=== PATIENT | male | born 1950 | race Caucasian/White ===

== ENCOUNTER → 2016-10-30 | Outpatient (CLI) | payer OTHER ==
--- NOTE | 2016-10-30 15:02 | CT ---
EXAMINATION TYPE: CT abdomen pelvis wo con DATE OF EXAM: 10/30/2016 1:57 PM HISTORY: renal stones, hx of stones on both sides CT DLP: 940.3 mGycm. Automated Exposure Control for Dose Reduction was Utilized. TECHNIQUE: CT scan of the abdomen and pelvis is performed without oral or IV contrast. COMPARISON: Prior CT abdomen and pelvis study January 23, 2008. FINDINGS: Within the limitations of a non-contrast study, the following observations are made. LUNG BASES: There is partial visualization of defibrillator and ventricular leads in the right-sided heart and coronary sinus redemonstrated. There is small pericardial effusion slightly larger versus p rior. LIVER/GB: Cholecystectomy clips are redemonstrated. Liver has increased density versus prior exam. PANCREAS: There is mild fat replaced atrophy of the head and body of pancreas redemonstrated. SPLEEN: Splenomegaly is redemonstrated measuring 16.7 cm on long axis on coronal image 66 stable from prior study. ADRENALS: No significant abnormality is seen. KIDNEYS: There are 3-4 small calculi measuring 3 mm or smaller in size scattered throughout the right kidney on current study. I suspect 1-2 punctate calculi measuring 2 mm or smaller in size in the lef t kidney on coronal image 50 lower pole level and coronal image 66 upper to mid pole level. No hydron ephrosis or obstructing renal calculi are evident bilaterally. There is prominent left-sided pelvic p hlebolith redemonstrated on axial image 72. Degree of calcific burden is significantly improved from prior. No intraluminal calculus and bladder is present. BOWEL: There is left lower quadrant colostomy. There is parastomal hernia containing small and large bowel loops redemonstrated. No suspicious small or large bowel dilatation is present. There is been d istal partial colectomy. Atrophic rectal pouch noted. GENITAL ORGANS: No gross abnormality seen. LYMPH NODES: No greater than 1cm abdominal or pelvic lymph nodes are appreciated. OSSEOUS STRUCTURES: No significant abnormality is seen. OTHER: No significant additional abnormality is seen. IMPRESSION: 1. Some tiny nonobstructing renal calculi are redemonstrated bilaterally. No hydronephrosis or obstru cting renal calculi are seen. Marked interval improvement in calcific burden versus prior exam is not ed.
== END | disposition home or self-care (01) ==
LOC: RADCTMAIN 13:36
PROVIDERS: ATTEND Family Medicine
DX: N20.0 Calculus of kidney (principal)
CPT/HCPCS: 74176

== ENCOUNTER 2016-12-14 09:32 | Day surgery (SDC) | payer OTHER ==
[~2016-12-14 09:32] MED LIST: CLINDAMYCIN 900 MG in DEXTROSE 5% IN WATER 50 ML IVPB STA; HYDROmorphone 1 MG/ML 1 ML SYRINGE IVP PRN; LACTATED RINGERS 1,000 ML IV SCH; MIDAZOLAM 2 MG/2 ML VIAL IV PRN; SODIUM CHLORIDE 0.9% 1,000 ML IV SCH
[2016-12-14 10:49] LABS: Glucose,Whole Blood 226 mg/dL (75-99)
[2016-12-14 10:50] LABS: Anion Gap 10 mmol/L; Blood Urea Nitrogen 20 mg/dL (9-20); Calcium 10.8 mg/dL (8.4-10.2); Carbon Dioxide 26 mmol/L (22-30); Chloride 101 mmol/L (98-107); Glucose 221 mg/dL (74-99); Non-African American GFR(MDRD) >60 (>60 ml/min/1.73 sqM); Sodium 137 mmol/L (137-145)
[2016-12-14 10:58] LABS: Potassium 5.1 mmol/L (3.5-5.1)
[2016-12-14] MEDS ORDERED: INSULIN LISPRO (humaLOG) 300 UNIT/3 ML VIAL SQ ONE (11:05)
[2016-12-14] MEDS ORDERED: fentaNYL (PF) 50 MCG/ML 2 ML AMP IV ONE (11:13)
[2016-12-14] MEDS ORDERED: fentaNYL (PF) 50 MCG/ML 2 ML AMP ONE (12:35)
[2016-12-14] MEDS ORDERED: MIDAZOLAM 2 MG/2 ML VIAL ONE (12:35)
[2016-12-14] MEDS ORDERED: PROPOFOL 10 MG/ML 20 ML VIAL IV ONE (12:35)
[2016-12-14] MEDS ORDERED: diphenhydrAMINE 50 MG/ML 1 ML VIAL ONE (12:35)
[2016-12-14] MEDS ORDERED: IV FLUID CONTINUATION 1,000 ML IV ONE (13:00)
[2016-12-14] MEDS ORDERED: LIDOCAINE 2% INJ 20 MG/ML SQ ONE (13:12)
--- NOTE | 2016-12-14 13:47 | P.PCN ---
Preoperative Diagnosis: Procedure: Device interrogation with reprogramming prior to the procedure AV Node Ablation/modification. Device interrogation with reprogramming postprocedure Indication for the procedure: A. fib with RVR, difficult rate control despite AV node blocking drugs, congestive heart failure and cardiomyopathy, status post biventricular ICD, low Bi V pacing percentage Patient was brought to the EP lab in a fasting state. Written, informed consent was obtained prior to the procedure. Access was obtained, sheath placed in right femoral vein. 1. Preprocedure device interrogation and reprogramming Device interrogation with reprogramming performed. Rate responsiveness was turned off and the pacing rate was reprogrammed to a backup mode prior to ablation. Tachycardia detections turned off. Lead impedance is documented, sensing and pacing thresholds performed prior to the procedure Backup pacing, VVI 40 bpm 3. AV node ablation A Mapping/Ablation catheter was placed and right-sided AV node radiofrequency ablation/modification was performed. Complete heart block was achieved with occasional junctional escape rhythm above 40 bpm 4. Device programming postprocedure Post ablation, device reprogramming was performed. Base Pacing rate was programmed to 90 bpm. Patient's device was reprogrammed and the interrogated. RF mode turned on Vascular sheaths were removed at the end of the procedure, hemostasis was assured, the patient was then transferred to recovery room/telemetry in stable condition. Conclusions: Successful ablation of the AV node. Plan: Pacing at 90 bpm for at least 3 weeks. Telemetry monitoring for 24-48 hours. Continue anticoagulation. Patient tolerated the procedure well without any acute complications Anesthesia: MAC, none
[2016-12-14] MEDS ORDERED: PROCHLORPERAZINE 5 MG TAB PO PRN (13:49)
[2016-12-14] MEDS: Acetaminophen-Codeine 300-30mg TAB PO PRN ×2 (15:39→19:52)
[2016-12-14 17:33] LABS: Glucose,Whole Blood 138 mg/dL (75-99)
[2016-12-14] MEDS: INSULIN LISPRO (humaLOG) 300 UNIT/3 ML VIAL SQ SCH ×2 (18:25→21:09)
[2016-12-14] MEDS: DIAZEPAM 5 MG TAB PO SCH ×2 (18:29→22:20)
[2016-12-14 20:48] LABS: Glucose,Whole Blood 179 mg/dL (75-99)
[2016-12-14] MEDS ORDERED: ZOLPIDEM 10 MG TAB PO SCH (21:00)
[2016-12-14] MEDS ORDERED: EDOXABAN TOSYLATE 60 MG TABLET PO SCH (21:00)
[2016-12-14] MEDS ORDERED: MIRTAZAPINE 45 MG TABLET PO SCH (21:00)
[2016-12-15] MEDS: Acetaminophen-Codeine 300-30mg TAB PO PRN ×2 (03:26→08:13)
[2016-12-15 04:04] VITALS: RESP 16
[2016-12-15 05:36] LABS: Basophils % (A) 0 %; CH 31.2; CHCM 33.6; Eosinophils # (A) 0.1 k/uL (0-0.7); Eosinophils % (A) 1 %; HCT 39.3 % (39.0-53.0); HDW 2.63; Luc # (Auto) 0.12; Luc % (Auto) 1; Lymphocytes # (A) 1.2 k/uL (1.0-4.8); Lymphocytes % (A) 13 %; MCH 30.8 pg (25.0-35.0); MCHC 33.1 g/dL (31.0-37.0); MCV 93.2 fL (80.0-100.0); Mean Platelet Volume 7.2; Monocytes # (A) 0.5 k/uL (0-1.0); Monocytes % (A) 5 %; Neutrophils # (A) 7.1 k/uL (1.3-7.7); Neutrophils % (A) 79 %; RBC 4.21 m/uL (4.30-5.90); RDW 13.9 % (11.5-15.5); WBC 8.9 k/uL (3.8-10.6); WBC (Perox) 9.77
[2016-12-15 06:44] LABS: Glucose,Whole Blood 159 mg/dL (75-99)
[2016-12-15] MEDS: DIAZEPAM 5 MG TAB PO SCH (08:13)
[2016-12-15 08:16] VITALS: BP 128/61; PULSE 68; TEMP 97.8
[2016-12-15] MEDS: INSULIN LISPRO (humaLOG) 300 UNIT/3 ML VIAL SQ SCH (08:17)
[2016-12-15] MEDS ORDERED: METOPROLOL SUCCINATE (ER) 100 MG TAB.ER.24H PO SCH (09:00)
[2016-12-15] MEDS ORDERED: DIGOXIN 125 MCG TAB PO SCH (09:00)
[2016-12-15] MEDS ORDERED: SPIRONOLACTONE 25 MG TAB PO SCH (09:00)
[2016-12-15] MEDS ORDERED: ALLOPURINOL 300 MG TAB PO SCH (09:00)
[2016-12-15] MEDS ORDERED: LISINOPRIL 20 MG TAB PO SCH (09:00)
[2016-12-15] MEDS ORDERED: INSULN ASP PRT/INSULIN ASPART 100 UNIT/ML 10 ML VIAL SQ SCH (12:30)
== END 2016-12-15 10:27 | disposition home or self-care (01) ==
LOC: CATHEP 09:32 → 3OBS 13:39 → CATHEP 12-15 10:27
PROVIDERS: ATTEND Internal Medicine Clinical Cardiac Electrophysiology
DX: Z45.02 Encounter for adjustment and management of automatic implantable cardiac defibrillator (principal); I48.1 Persistent atrial fibrillation; I47.2 Ventricular tachycardia; I11.0 Hypertensive heart disease with heart failure; I50.22 Chronic systolic (congestive) heart failure; I42.0 Dilated cardiomyopathy; E78.5 Hyperlipidemia, unspecified; E11.9 Type 2 diabetes mellitus without complications; I25.10 Atherosclerotic heart disease of native coronary artery without angina pectoris; K51.90 Ulcerative colitis, unspecified, without complications; Z93.2 Ileostomy status; Z86.718 Personal history of other venous thrombosis and embolism; Z82.49 Family history of ischemic heart disease and other diseases of the circulatory system; Z79.4 Long term (current) use of insulin; Z79.891 Long term (current) use of opiate analgesic; Z79.899 Other long term (current) drug therapy; Z88.0 Allergy status to penicillin; Z88.8 Allergy status to other drugs, medicaments and biological substances; Z91.041 Radiographic dye allergy status; Z87.891 Personal history of nicotine dependence
CPT/HCPCS: 93650; 80048; 85025; C1894; C1769 ×2; C1733; C1893; S0183; J2001; J2250; J1200; J3010; J2704

== ENCOUNTER 2018-02-20 20:57 | Inpatient (IN) | payer OTHER ==
[2018-02-20] MEDS ORDERED: KETOROLAC 30 MG/ML 1 ML VIAL IVP STA (21:20)
[2018-02-20] MEDS ORDERED: ONDANSETRON 4 MG/2 ML VIAL IVP STA (21:20)
[2018-02-20] MEDS ORDERED: SODIUM CHLORIDE 0.9% 1,000 ML IV STA ×2 (21:20)
[2018-02-20] MEDS ORDERED: FAMOTIDINE 20 MG/2 ML VIAL IV STA (21:23)
[2018-02-20] MEDS ORDERED: methylPREDNISolone SOD SUCCI 125 MG/2 ML VIAL IV STA (21:23)
[2018-02-20] MEDS ORDERED: diphenhydrAMINE 50 MG/ML 1 ML VIAL IVP STA (21:23)
--- NOTE | 2018-02-20 21:23 | ED ---
Nausea/Vomiting/Diarrhea HPI - General Source: patient, RN notes reviewed, old records reviewed Mode of arrival: EMS Limitations: no limitations <Cordelia Starks - Last Filed: 02/21/18 05:43> <Oleg Munoz - Last Filed: 02/21/18 09:03> - General Chief complaint: Nausea/Vomiting/Diarrhea Stated complaint: Diarrhea Time Seen by Provider: 02/20/18 21:08 - History of Present Illness Initial comments: Patient 67-year-old male presents emergency department today with severe diarrhea for the past few days. Patient reports that he has a ostomy bag. has been emptying it every few hours with clear liquid stool. Patient reports he does have some left-sided abdominal pain. Extensive surgical history including bowel resection and ileostomy replacement. Gallbladders removed as well. Patient denies any fever or chills. He denies any chest pressure S breath. He is also wearing a life past as his defibrillator was recently turned off but he does have a pacemaker. Patient states he feeling very fatigued. Denies any vomiting episodes. Stool cultures obtained. ( Cordelia Starks) - Related Data Home Medications Medication Instructions Recorded Confirmed Acetaminophen with Codeine 1 - 2 tab PO Q4-6H PRN 08/06/16 11/15/17 [Tylenol w/codeine #4] Allopurinol [Zyloprim] 300 mg PO DAILY 08/06/16 11/15/17 Diazepam [Valium] 5 - 10 mg PO DAILY 08/06/16 11/15/17 Digoxin [Lanoxin] 125 mcg PO DAILY 08/06/16 11/15/17 Enalapril [Vasotec] 5 mg PO BID 08/06/16 11/15/17 Insuln Asp Prt/Insulin Aspart 52 unit SQ AC-LUNCH 08/06/16 11/15/17 [NovoLOG MIX 70-30 VIAL] Mirtazapine [Remeron] 45 mg PO DAILY 08/06/16 11/15/17 Prochlorperazine [Compazine] 5 - 10 mg PO Q8HR PRN 08/06/16 11/08/17 Zolpidem [Ambien] 10 mg PO HS 08/06/16 11/15/17 Edoxaban Tosylate [Savaysa] 60 mg PO HS 11/27/16 11/15/17 Multivitamin [Multivitamins Adult 1 tab PO DAILY 11/27/16 11/15/17 Gummies] [place]-3 Fatty Acids/Fish Oil [Fish 1 cap PO DAILY 11/27/16 11/15/17 Oil 1,000 mg Softgel] Spironolactone [Aldactone] 25 mg PO DAILY 11/27/16 11/15/17 Calcium Carbonate/Vitamin D3 2 tab PO BID 12/14/16 11/15/17 [Calcium 600-Vit D3 400 Caplet] Insulin Aspart [NovoLOG Flexpen] See Protocol SQ ACHS 12/14/16 11/08/17 Metoprolol Succinate (ER) [Toprol 50 mg PO BID 12/15/16 11/15/17 XL] Allergies Allergy/AdvReac Type Severity Reaction Status Date / Time Iodine and Iodide Containing AdvReac Swelling Verified 12/14/16 14:39 Produc of Tongue Penicillins AdvReac Rash/Hives Verified 12/14/16 14:39 Review of Systems ROS Other: All systems not noted in ROS Statement are negative. <Cordelia Starks - Last Filed: 02/21/18 05:43> ROS Other: All systems not noted in ROS Statement are negative. <Oleg Munoz - Last Filed: 02/21/18 09:03> ROS Statement: Those systems with pertinent positive or pertinent negative responses have been documented in the HPI. 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 History of Any Multi-Drug Resistant Organisms: None Reported Past Surgical History: AICD, Appendectomy, Back Surgery, Cholecystectomy, Heart Catheterization, Hernia Repair, Tonsillectomy Additional Past Surgical History / Comment(s): Ileostomy and a revision, BiV- ICD implanted in 2006 with gen change 2012, cardiac cath-normal, EGD/ colonoscopies, cystoscopy, lithotripsies, bilateral ureteral stents, cervical fusion with plate, R inguinal hernia repair. Additional Past Anesthesia/Blood Transfusion Reaction / Comment(s): Limited ROM with neck. Type of Cardiac Device: AICD Device Placement Date:: 2006 Past Psychological History: Anxiety, Depression, Panic Disorder Smoking Status: Former smoker - Past Family History Father Additional Family Medical History / Comment(s): Father of alcoholism. Mother Family Medical History: Hypertension Additional Family Medical History / Comment(s): Diverticular disease. Mother in her 80's. <Cordelia Starks - Last Filed: 02/21/18 05:43> General Exam Limitations: no limitations General appearance: alert, in no apparent distress Head exam: Present: atraumatic, normocephalic, normal inspection Eye exam: Present: normal appearance, PERRL, EOMI. Absent: scleral icterus, conjunctival injection, periorbital swelling ENT exam: Present: normal exam, mucous membranes moist Neck exam: Present: normal inspection. Absent: tenderness, meningismus, lymphadenopathy Respiratory exam: Present: normal lung sounds bilaterally, other (She was wearing a life vest.). Absent: respiratory distress, wheezes, rales, rhonchi, stridor Cardiovascular Exam: Present: regular rate, normal rhythm, normal heart sounds. Absent: systolic murmur, diastolic murmur, rubs, gallop, clicks GI/Abdominal exam: Present: soft, tenderness (Left lower quadrant tenderness.), normal bowel sounds, other (Multiple scars. Evidence of the left sided ileostomy site. Clear liquid stool.). Absent: distended, guarding, rebound, rigid Extremities exam: Present: normal inspection, full ROM, normal capillary refill. Absent: tenderness, pedal edema, joint swelling, calf tenderness Back exam: Present: normal inspection Neurological exam: Present: alert, oriented X3, CN II-XII intact Psychiatric exam: Present: normal affect, normal mood Skin exam: Present: warm, dry, intact, normal color. Absent: rash <Cordelia Starks - Last Filed: 02/21/18 05:43> <Oleg Munoz - Last Filed: 02/21/18 09:03> - General Exam Comments Initial Comments: Is a 67-year-old male. Appears to be in mild discomfort. (Cordelia Starks) Vital Signs 02/20/18 02/20/18 02/20/18 21:05 22:01 22:38 Temperature 99.4 F Pulse Rate 70 Pulse Rate [ Pulse Oximetery ] Respiratory 16 16 Rate Blood Pressure 107/54 93/54 94/50 Blood Pressure [Left Arm] O2 Sat by Pulse 93 L Oximetry 02/20/18 02/20/18 02/20/18 22:47 22:51 23:00 Temperature Pulse Rate 70 78 Pulse Rate [ Pulse Oximetery ] Respiratory Rate Blood Pressure 110/60 Blood Pressure [Left Arm] O2 Sat by Pulse 97 Oximetry 02/20/18 02/21/18 02/21/18 23:23 00:00 00:47 Temperature 98.7 F 97.0 F L Pulse Rate 71 Pulse Rate [ 70 Pulse Oximetery ] Respiratory 16 19 Rate Blood Pressure 100/54 107/59 Blood Pressure 101/46 [Left Arm] O2 Sat by Pulse 97 98 96 Oximetry 02/21/18 01:52 Temperature Pulse Rate 69 Pulse Rate [ Pulse Oximetery ] Respiratory 20 Rate Blood Pressure 104/56 Blood Pressure [Left Arm] O2 Sat by Pulse 97 Oximetry Medical Decision Making - Lab Data Result diagrams: 02/20/18 21:13 02/20/18 21:13 - Radiology Data Radiology results: report reviewed <Cordelia Starks - Last Filed: 02/21/18 05:43> - Lab Data Result diagrams: 02/20/18 21:13 02/21/18 06:30 <Oleg Munoz - Last Filed: 02/21/18 09:03> - Medical Decision Making 67-year-old male presents with severe diarrhea from his ostomy site for the past few days. Trying to stay hydrated. No vomiting. Patient has multiple liquid stool. Tenderness or left lower quadrant. Labwork obtained. Patient is hyperkalemic at 6.6. Significant renal compromise with BUN of 2.[address] abdomen and pelvis without contrast was completed. CT and pelvis is evidence of enteritis and inflammation on the left lower quadrant. White blood cell count is within normal limits. Patient does have significant BUN/creatinine. [place] the Patient for hyperkalemia, a canine, D and diarrhea. Patient was started hyperkalemic protocol with Kayexalate, albuterol, bicarb and calcium chloride. He is also given insulin bolus. A did consult the sorter upholstery parts. Given rehydration. Stool cultures pending. (Cordelia Starks) I saw this patient in conjunction with the physician religious assistant. I performed independent history and physical exam. Agree with case management. (Oleg Munoz) - Lab Data Lab Results 02/20/18 02/20/18 02/20/18 Range/Units 21:13 21:13 21:13 WBC 9.9 (3.8-10.6) k/uL RBC 4.39 (4.30-5.90) m/uL Hgb 13.4 (13.0-17.5) gm/dL Hct 41.4 (39.0-53.0) % MCV 94.2 (80.0-100.0) fL MCH 30.5 (25.0-35.0) pg MCHC 32.4 (31.0-37.0) g/dL RDW 14.5 (11.5-15.5) % Plt Count 187 (150-450) k/uL Neutrophils % 79 % Lymphocytes % 12 % Monocytes % 7 % Eosinophils % 1 % Basophils % 0 % Neutrophils # 7.8 H (1.3-7.7) k/uL Lymphocytes # 1.2 (1.0-4.8) k/uL Monocytes # 0.7 (0-1.0) k/uL Eosinophils # 0.1 (0-0.7) k/uL Basophils # 0.0 (0-0.2) k/uL PT 11.8 (9.0-12.0) sec INR 1.2 H (<1.2) APTT 23.6 (22.0-30.0) sec Sodium 130 L (137-145) mmol/L Potassium 6.6 H* (3.5-5.1) mmol/L Chloride 95 L (98-107) mmol/L Carbon Dioxide 22 (22-30) mmol/L Anion Gap 13 mmol/L BUN 61 H (9-20) mg/dL Creatinine 2.40 H (0.66-1.25) mg/dL Est GFR (CKD-EPI)AfAm 32 (>60 ml/min/1.73 sqM) Est GFR (CKD-EPI)NonAf 27 (>60 ml/min/1.73 sqM) Glucose 219 H (74-99) mg/dL Calcium 10.6 H (8.4-10.2) mg/dL Total Bilirubin 0.6 (0.2-1.3) mg/dL AST 90 H (17-59) U/L ALT 67 (21-72) U/L Alkaline Phosphatase 63 (38-126) U/L Troponin I (0.000-0.034) ng/mL Total Protein 7.2 (6.3-8.2) g/dL Albumin 4.3 (3.5-5.0) g/dL Amylase 104 (30-110) U/L Lipase 227 (23-300) U/L Stool Occult Blood (Negative) C. difficile (EIA) Intrp (Negative) 02/20/18 02/20/18 02/20/18 Range/Units 21:13 22:59 22:59 WBC (3.8-10.6) k/uL RBC (4.30-5.90) m/uL Hgb (13.0-17.5) gm/dL Hct (39.0-53.0) % MCV (80.0-100.0) fL MCH (25.0-35.0) pg MCHC (31.0-37.0) g/dL RDW (11.5-15.5) % Plt Count (150-450) k/uL Neutrophils % % Lymphocytes % % Monocytes % % Eosinophils % % Basophils % % Neutrophils # (1.3-7.7) k/uL Lymphocytes # (1.0-4.8) k/uL Monocytes # (0-1.0) k/uL Eosinophils # (0-0.7) k/uL Basophils # (0-0.2) k/uL PT (9.0-12.0) sec INR (<1.2) APTT (22.0-30.0) sec Sodium (137-145) mmol/L Potassium (3.5-5.1) mmol/L Chloride (98-107) mmol/L Carbon Dioxide (22-30) mmol/L Anion Gap mmol/L BUN (9-20) mg/dL Creatinine (0.66-1.25) mg/dL Est GFR (CKD-EPI)AfAm (>60 ml/min/1.73 sqM) Est GFR (CKD-EPI)NonAf (>60 ml/min/1.73 sqM) Glucose (74-99) mg/dL Calcium (8.4-10.2) mg/dL Total Bilirubin (0.2-1.3) mg/dL AST (17-59) U/L ALT (21-72) U/L Alkaline Phosphatase (38-126) U/L Troponin I <0.012 (0.000-0.034) ng/mL Total Protein (6.3-8.2) g/dL Albumin (3.5-5.0) g/dL Amylase (30-110) U/L Lipase (23-300) U/L Stool Occult Blood Negative (Negative) C. difficile (EIA) Intrp Negative (Negative) - Radiology Data EKG shows ventricular placed rhythm abnormal EKG. Ventricular rate of 70 bpm. No rales and affect. Frustration 164. QT QTc is 442/467 ms. No evidence of ST elevation or T-wave inversion. Tiny right renal comply. Small bladder colliculi. Large left-sided periosteal hernia. Small bowel fluid levels consistent with mild ileus. No evidence for bowel obstruction. Bladder colliculi. New compared old exam. Ileus pattern is new compared on exam. (Cordelia Starks) Disposition Is patient prescribed a controlled substance at d/c from ED?: No When asked, does pt state using other controlled substances?: No If prescribed controlled substance>3 days was MAPS reviewed?: No If opioid is for acute pain is fill amount 7 days or less?: No If Rx opioid, was Start Talking consent form obtained?: No Time of Disposition: 00:33 <Cordelia Starks - Last Filed: 02/21/18 05:43> <Oleg Munoz - Last Filed: 02/21/18 09:03> Clinical Impression: Diarrhea, MIGUEL ÁNGEL (acute kidney injury), Hyperkalemia Disposition: ADMITTED IP TO THIS HOSP Condition: Stable
[2018-02-20] MEDS: MORPHINE SULFATE 4 MG/ML SYRINGE IV STA (21:48)
[2018-02-20 22:00] LABS: Basophils % (A) 0 %; Eosinophils # (A) 0.1 k/uL (0-0.7); Eosinophils % (A) 1 %; HCT 41.4 % (39.0-53.0); HGB 13.4 gm/dL (13.0-17.5); Lymphocytes # (A) 1.2 k/uL (1.0-4.8); Lymphocytes % (A) 12 %; MCH 30.5 pg (25.0-35.0); MCHC 32.4 g/dL (31.0-37.0); MCV 94.2 fL (80.0-100.0); Mean Platelet Volume 8.1; Monocytes # (A) 0.7 k/uL (0-1.0); Monocytes % (A) 7 %; Neutrophils # (A) 7.8 k/uL (1.3-7.7); Neutrophils % (A) 79 %; Platelet Count 187 k/uL (150-450); RBC 4.39 m/uL (4.30-5.90); RDW 14.5 % (11.5-15.5); WBC 9.9 k/uL (3.8-10.6)
[2018-02-20 22:04] LABS: Albumin 4.3 g/dL (3.5-5.0); Calcium 10.6 mg/dL (8.4-10.2); Total Bilirubin 0.6 mg/dL (0.2-1.3); Total Protein 7.2 g/dL (6.3-8.2)
[2018-02-20 22:14] LABS: INR 1.2 (<1.2); Partial Thromboplastin Time 23.6 sec (22.0-30.0); Prothrombin Time 11.8 sec (9.0-12.0)
[2018-02-20 22:20] LABS: Potassium 6.6 mmol/L (3.5-5.1)
[2018-02-20] MEDS ORDERED: CALCIUM CHLORIDE IV ONE (22:21)
[2018-02-20] MEDS ORDERED: INSULIN REGULAR 100 UNIT/ML VIAL IV ONE (22:21)
[2018-02-20] MEDS ORDERED: ALBUTEROL NEB (CONC) 2.5 MG/0.5 ML INHALATION ONE (22:21)
[2018-02-20] MEDS ORDERED: DEXTROSE 50%-WATER 50 ML SYRINGE IVP ONE (22:21)
[2018-02-20] MEDS ORDERED: SODIUM CHLORIDE 0.9% IV ONE (22:21)
[2018-02-20] MEDS ORDERED: SODIUM BICARB 8.4% 50 ML SYR (1 MEQ/ML) IV ONE (22:21)
[2018-02-20] MEDS ORDERED: SODIUM POLYSTYRENE SULFONATE 15 GM/60 ML BOTTLE PO ONE (22:21)
--- NOTE | 2018-02-21 00:26 | CT ---
EXAMINATION TYPE: CT abdomen pelvis wo con DATE OF EXAM: 02/20/2018 COMPARISON: 10/30/2016 HISTORY: Diarrhea CT DLP: 1153.30 mGycm Automated exposure control for dose reduction was used. TECHNIQUE: Helical acquisition of images was performed from the lung bases through the pelvis. FINDINGS: There is mild subsegmental atelectasis at the left lung base. There is cardiomegaly with small perica rdial effusion. Liver shows no focal defect. There are clips from cholecystectomy. Bile ducts are not dilated. Spleen appears normal. There is no pancreatic mass. There is no adrenal mass. Kidneys show no hydronephrosis. There are tiny 1 mm calculi in the right ki dney. There is no retroperitoneal adenopathy. There is no ascites. There are small calcifications in the dependent urinary bladder. There is no evidence of a bowel obstruction. There are some small chelsea l fluid levels. Small bowel measures up to 2.8 cm. There is a left-sided ventral parastomal hernia th at contains multiple loops of bowel. There is an ostomy over the left mid abdomen. There is no eviden ce of a mechanical bowel obstruction. There is a rectal stump. I see no bony destructive process. IMPRESSION: TINY RIGHT RENAL CALCULI. SMALL BLADDER CALCULI. LARGE LEFT SIDE PERISTOMAL HERNIA. SMALL BOWEL FLUID LEVELS CONSISTENT WITH MILD ILEUS. I DO NOT SEE EVIDENCE FOR MECHANICAL BOWEL OBSTRUCTION. BLADDER C ALCULI APPEAR NEW COMPARED TO OLD EXAM. ILEUS PATTERN IS NEW COMPARED TO OLD EXAM.
[2018-02-21] MEDS ORDERED: Acetaminophen-Codeine 300-30mg TAB PO PRN (00:35)
[2018-02-21] MEDS ORDERED: NALOXONE 0.4 MG/ML 1 ML VIAL IV PRN (00:35)
[2018-02-21] MEDS ORDERED: MORPHINE SULFATE 4 MG/ML SYRINGE IV PRN (00:35)
[2018-02-21] MEDS ORDERED: ACETAMINOPHEN TAB 325 MG TAB PO PRN (00:35)
[2018-02-21 02:40] VITALS: BMI 35.5
[2018-02-21] MEDS: MORPHINE SULFATE 4 MG/ML SYRINGE IV STA (02:55)
[2018-02-21] MEDS: SODIUM CHLORIDE 0.9% 1,000 ML IV SCH ×3 (02:55→20:25)
[2018-02-21 06:08] LABS: Glucose,Whole Blood 419 mg/dL (75-99)
[2018-02-21 06:48] LABS: Appearance,Urine Cloudy (Clear); Bacteria,Urine Rare /hpf; Bilirubin,Urine Negative (Negative); Blood,Urine Negative (Negative); Color,Urine Yellow; Glucose,Urine (UA) 3+ (Negative); Hyaline Casts,Urine 34 /lpf (0-2); Ketones,Urine Trace (Negative); Leukocyte Esterase,Urine Trace (Negative); Mucus,Urine Rare /hpf; Nitrite,Urine Negative (Negative); Protein,Urine Trace (Negative); RBC,Urine <1 /hpf (0-5); Specific Gravity,Urine 1.015 (1.001-1.035); Squamous Epithelial Cell,Urine <1 /hpf (0-4); Urobilinogen,Urine <2.0 mg/dL (<2.0); WBC,Urine 6 /hpf (0-5)
[2018-02-21 07:58] LABS: Calcium 9.6 mg/dL (8.4-10.2)
[2018-02-21 08:05] LABS: Potassium 6.8 mmol/L (3.5-5.1)
[2018-02-21] MEDS ORDERED: SODIUM BICARB 8.4% 50 ML SYR (1 MEQ/ML) IV ONE ×2 (09:04→15:13)
--- NOTE | 2018-02-21 09:05 | P.NPCON ---
History of Present Illness - Reason for Consult acute renal failure, hyperkalemia - History of Present Illness Reason for consultation: Acute kidney injury and hyperkalemia History of present illness: Patient is a 67-year-old male seen in renal consultation for acute kidney injury and hyperkalemia. Patient denies any history of kidney disease. His creatinine in December 2016 was near 1. It was elevated at 2.4 this admission and is up to 3.15 today. Potassium levels also elevated at 6.6 and a 6.8 this morning. Patient has history of ulcerative colitis and underwent total colectomy and has an ileostomy. Patient states he's been having intermittent loose stool in his ostomy bag over the last few weeks. However yesterday he had basically continuous output from his ostomy. Oral intake has been poor. [place] nauseous but denies vomiting. States he didn't urinate much at all yesterday but did urinate this morning. Denies hematuria or dysuria. Denies regular use of NSAIDs. Denies chest pain or shortness of breath. No edema. The hyperkalemia was medically treated. It is also noted that he received Toradol in the ER. He is receiving IV fluids. Blood pressures have been on the lower side. He does admit to taking Aldactone and I also see an SRIDEVI inhibitor and his home medications. The output from ostomy has slowed down. Vital signs are stable. General: The patient appeared well nourished and normally developed. HEENT: Head exam is unremarkable. Neck is without jugular venous distension. LUNGS: Lungs are clear to auscultation and percussion. Breath sounds decreased. HEART: Rate and Rhythm are regular. First and second heart sounds normal. No murmurs, rubs or gallops. ABDOMEN: Abdominal exam reveals normal bowel sounds. Non-tender and non- distended. No evidence of peritonitis. EXTREMITITES: No clubbing, cyanosis, or edema. 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 History of Any Multi-Drug Resistant Organisms: None Reported Past Surgical History: AICD, Appendectomy, Back Surgery, Cholecystectomy, Heart Catheterization, Hernia Repair, Tonsillectomy Additional Past Surgical History / Comment(s): Ileostomy and a revision, BiV- ICD implanted in 2006 with gen change 2011, cardiac cath-normal, EGD/ colonoscopies, cystoscopy, lithotripsies, bilateral ureteral stents, cervical fusion with plate, R inguinal hernia repair. Past Anesthesia/Blood Transfusion Reactions: No Reported Reaction Additional Past Anesthesia/Blood Transfusion Reaction / Comment(s): Limited ROM with neck. Type of Cardiac Device: AICD Device Placement Date:: 2006 Past Psychological History: Anxiety, Depression, Panic Disorder Smoking Status: Former smoker - Past Family History Father Additional Family Medical History / Comment(s): Father of alcoholism. Mother Family Medical History: Hypertension Additional Family Medical History / Comment(s): Diverticular disease. Mother in her 80's. Medications and Allergies Home Medications Medication Instructions Recorded Confirmed Type Acetaminophen with Codeine 1 - 2 tab PO Q4-6H PRN 08/06/16 11/15/17 History [Tylenol w/codeine #4] Allopurinol [Zyloprim] 300 mg PO DAILY 08/06/16 11/15/17 History Diazepam [Valium] 5 - 10 mg PO DAILY 08/06/16 11/15/17 History Digoxin [Lanoxin] 125 mcg PO DAILY 08/06/16 11/15/17 History Enalapril [Vasotec] 5 mg PO BID 08/06/16 11/15/17 History Insuln Asp Prt/Insulin Aspart 52 unit SQ AC-LUNCH 08/06/16 11/15/17 History [NovoLOG MIX 70-30 VIAL] Mirtazapine [Remeron] 45 mg PO DAILY 08/06/16 11/15/17 History Prochlorperazine [Compazine] 5 - 10 mg PO Q8HR PRN 08/06/16 11/08/17 History Zolpidem [Ambien] 10 mg PO HS 08/06/16 11/15/17 History Edoxaban Tosylate [Savaysa] 60 mg PO HS 11/27/16 11/15/17 History Multivitamin [Multivitamins Adult 1 tab PO DAILY 11/27/16 11/15/17 History Gummies] [place]-3 Fatty Acids/Fish Oil [Fish 1 cap PO DAILY 11/27/16 11/15/17 History Oil 1,000 mg Softgel] Spironolactone [Aldactone] 25 mg PO DAILY 11/27/16 11/15/17 History Calcium Carbonate/Vitamin D3 2 tab PO BID 12/14/16 11/15/17 History [Calcium 600-Vit D3 400 Caplet] Insulin Aspart [NovoLOG Flexpen] See Protocol SQ ACHS 12/14/16 11/08/17 History Metoprolol Succinate (ER) [Toprol 50 mg PO BID 12/15/16 11/15/17 History XL] Allergies Allergy/AdvReac Type Severity Reaction Status Date / Time Iodine and Iodide Containing AdvReac Swelling Verified 12/14/16 14:39 Produc of Tongue Penicillins AdvReac Rash/Hives Verified 12/14/16 14:39 Physical Exam Vitals: Vital Signs Temp Pulse Pulse Resp BP BP Pulse Ox 02/21/18 04:00 97.2 F L 69 18 86/53 96 02/21/18 03:01 70 20 02/21/18 01:52 69 20 104/56 97 02/21/18 00:47 97.0 F L 70 19 101/46 96 02/21/18 00:00 107/59 98 02/20/18 23:23 98.7 F 71 16 100/54 97 02/20/18 23:00 110/60 97 02/20/18 22:51 78 02/20/18 22:47 70 02/20/18 22:38 16 94/50 02/20/18 22:01 93/54 02/20/18 21:05 99.4 F 70 16 107/54 93 L Intake and Output 02/20/18 02/21/18 02/21/18 22:59 06:59 14:59 Intake Total 1400 240 Balance 1400 240 Intake: Amount of Fluid Infused ( 1400 ml) Oral 240 Other: Voiding Method Urinal # Voids 2 Weight 107.048 kg 106.5 kg Results - Lab Results Most recent lab results Calcium 9.6 mg/dL (8.4-10.2) 02/21/18 06:30 02/20/18 21:13 02/21/18 06:30 Assessment and Plan Plan: Assessment: 1. Acute kidney injury secondary to ATN secondary to severe intravascular volume depletion from high output from the ostomy and further worsened with use of Aldactone and easily better. Creatinine 3.15 today. Trace proteinuria on UA without any hematuria. Rule out urinary retention. 2. Diarrhea. C. diff negative. 3. Hyperkalemia secondary to acute kidney injury, metabolic acidosis and further worsened with the use of Aldactone and SRIDEVI inhibitor. Potassium 6.8 this morning. 4. Metabolic acidosis secondary to acute kidney injury and GI losses. 5. Hypertonic hyponatremia secondary to hyperglycemia. 6. History of ulcerative colitis status post total colectomy with ileostomy in place. 7. Diabetes mellitus. 8. Hypotension secondary to hypovolemia. Plan: Continue normal saline at 100 mL an hour. I will give him 1 g of IV calcium gluconate along with 10 units of IV insulin and 2 A of sodium bicarbonate IV push now. Check bladder scan and insert [place] is greater than 250 mL present. Low potassium diet. Continue to hold diuretics. Avoid nephrotoxins. Repeat potassium level this afternoon and electrolytes in the morning. Thank you for the consultation. I will continue to follow the patient with you during his hospital stay.
[2018-02-21] MEDS ORDERED: CALCIUM CHLORIDE 100 MG/ML 10 ML SYRINGE IVP ONE (09:06)
[2018-02-21] MEDS ORDERED: CALCIUM CHLORIDE 1,000 MG in SODIUM CHLORIDE 0.9% 100 ML IVPB STA ×2 (09:09→15:20)
[2018-02-21] MEDS ORDERED: INSULIN REGULAR 100 UNIT/ML VIAL IV ONE ×2 (09:30→15:13)
--- NOTE | 2018-02-21 11:01 | HP ---
HISTORY AND PHYSICAL CHIEF COMPLAINT: A 67-year-old with acute kidney injury, hyperkalemia, and severe diarrhea, potassium 6.7 on admission to the ER. Baseline creatinine was 1, it is up to 2.4 because of diarrhea, high potassium, so he was admitted to the hospital at this time. Intermittent loose stool from his ostomy, possibly due to gastroenteritis. Denies NSAIDs, dysuria, frequency, or urgency. They gave him some Toradol in the ER. Blood pressure is on the lower side/. 14 POINT REVIEW OF SYSTEMS: Negative except for as mentioned in HPI. LUNGS: Clear. HEAD: Normocephalic, atraumatic. EYES: Pupils equal, round, reactive to light and accommodation. NEUROLOGIC: Alert and oriented x3. PSYCH: Fair mood and affect. VASCULAR: Normal dorsalis pedis, posterior pulses. GI: Ostomy is intact. PAST MEDICAL HISTORY: Atrial fibrillation, angina, heart failure, diabetes mellitus, DVTs, hypertension, renal disease, nonischemic cardiomyopathy, nonsustained V. 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 SURGICAL HISTORY: ICD, appendectomy, back surgery, cholecystectomy, heart catheterization, hernia repair, tonsillectomy, ileostomy with revision, multiple cardiac catheterizations, BVP/ICD implant, ureteral stents, cervical fusion tingling, hernia repair, lithotripsy, cystoscopy, anxiety, depression, panic disorders. He is a former smoker. Father history of alcoholism. Mother with hypertension, diverticular disease. HOME MEDICATIONS: 1. Tylenol 4. 2. Zyloprim. 3. . 4. Lanoxin. 5. Vasotec. 6. Novolog 70/30 fifty-two units a.c. lunch. 7. Remeron 45 mg daily. 8. Compazine 10 mg q.8 hours. 9. Ambien 10 mg daily. 10. 60 mg daily. 11.Multivitamin daily. 12.[place]-3 daily. 13.Aldactone 25 daily. 14.Novolog FlexPen a.c. and at bedtime. 15.Metoprolol 50 b.i.d. ALLERGIES: IODINE, PENICILLIN. VITAL SIGNS: Temp 97.2, respirations 18-20, pulse 69-70, blood pressure 85 to 100/40s to 60s. Blood pressure 100/50s. Sodium 130, potassium 6.8, BUN 6, creatinine 3.15. ASSESSMENT: 1. Acute kidney injury, secondary to acute tubular necrosis due to severe volume dehydration, high output from the ostomy, possibly worsened with Aldactone. 2. Trace proteinuria, chronic diarrhea, possible gastroenteritis. 3. Hyperkalemia secondary to diarrhea. 4. Metabolic acidosis, secondary to acute injury and GI losses. 5. Hypertonic hyponatremia. 6. History of ulcer colitis, status post colectomy and ileostomy. 7. Diabetes mellitus. 8. Hypertension. Continue normal saline 100 an hour, IV calcium gluconate, insulin is being given, sodium bicarbonate push to rehydrate. Follow electrolytes, check in the morning. Please see further orders and renal consult pending. MMODL / IJN: [id number] /
[2018-02-21] MEDS: PANTOPRAZOLE 40 MG/10 ML VIAL IV SCH (11:17)
[2018-02-21] MEDS: INSULIN ASPART 100 UNIT/ML 1 ML 10 ML VIAL SQ SCH ×4 (11:17→20:48)
[2018-02-21] MEDS: DIAZEPAM 5 MG TAB PO SCH ×3 (11:31→20:22)
[2018-02-21 11:47] LABS: Glucose,Whole Blood 406 mg/dL (75-99)
[2018-02-21 12:26] LABS: Hemoglobin A1C 8.4 % (4.0-6.0)
[2018-02-21] MEDS ORDERED: ALBUTEROL NEBULIZED (CONC) 20 MG, SODIUM CHLORIDE 0.9% NEBULIZ 3 ML INHALATION ONE ×2 (15:13)
[2018-02-21] MEDS ORDERED: FUROSEMIDE 10 MG/ML 4 ML VIAL IV STA (15:20)
[2018-02-21] MEDS ORDERED: SODIUM POLYSTYRENE SULFONATE 15 GM/60 ML BOTTLE PO STA (15:21)
[2018-02-21 16:58] LABS: Glucose,Whole Blood 394 mg/dL (75-99)
[2018-02-21] MEDS: INSULN ASP PRT/INSULIN ASPART 100 UNIT/ML 10 ML VIAL SQ SCH (17:48)
[2018-02-21] MEDS: Acetaminophen-Codeine 300-30mg TAB PO PRN (18:01)
[2018-02-21] MEDS: METOPROLOL SUCCINATE (ER) 50 MG TAB.ER.24H PO SCH (20:20)
[2018-02-21] MEDS: CALCIUM CARB-VIT D 500MG-200UN 1 EACH TAB PO SCH (20:20)
[2018-02-21] MEDS: EDOXABAN TOSYLATE 60 MG TABLET PO SCH (20:20)
[2018-02-21 20:38] LABS: Glucose,Whole Blood 359 mg/dL (75-99)
[2018-02-21 21:51] VITALS: RESP 18
[2018-02-21] MEDS: ZOLPIDEM 5 MG TAB PO PRN (21:56)
[2018-02-22 05:43] LABS: Glucose,Whole Blood 241 mg/dL (75-99)
[2018-02-22] MEDS: DIAZEPAM 5 MG TAB PO SCH ×4 (06:41→21:07)
[2018-02-22] MEDS: INSULIN ASPART 100 UNIT/ML 1 ML 10 ML VIAL SQ SCH ×4 (06:41→21:08)
[2018-02-22] MEDS: SODIUM CHLORIDE 0.9% 1,000 ML IV SCH ×3 (06:46→21:07)
[2018-02-22] MEDS: INSULN ASP PRT/INSULIN ASPART 100 UNIT/ML 10 ML VIAL SQ SCH ×2 (07:06→17:25)
[2018-02-22 07:17] LABS: Basophils % (A) 0 %; Eosinophils % (A) 1 %; HCT 32.1 % (39.0-53.0); HGB 10.5 gm/dL (13.0-17.5); Lymphocytes # (A) 0.6 k/uL (1.0-4.8); Lymphocytes % (A) 12 %; MCH 30.9 pg (25.0-35.0); MCHC 32.7 g/dL (31.0-37.0); MCV 94.7 fL (80.0-100.0); Mean Platelet Volume 8.3; Monocytes # (A) 0.3 k/uL (0-1.0); Monocytes % (A) 7 %; Neutrophils # (A) 3.6 k/uL (1.3-7.7); Neutrophils % (A) 79 %; Platelet Count 109 k/uL (150-450); RBC 3.39 m/uL (4.30-5.90); RDW 14.1 % (11.5-15.5); WBC 4.6 k/uL (3.8-10.6)
[2018-02-22 07:38] LABS: Albumin 3.4 g/dL (3.5-5.0); Calcium 10.3 mg/dL (8.4-10.2); Magnesium 1.2 mg/dL (1.6-2.3); Potassium 5.1 mmol/L (3.5-5.1); Total Bilirubin 0.2 mg/dL (0.2-1.3); Total Protein 5.8 g/dL (6.3-8.2)
[2018-02-22] MEDS: CALCIUM CARB-VIT D 500MG-200UN 1 EACH TAB PO SCH (07:46)
[2018-02-22] MEDS: PANTOPRAZOLE 40 MG/10 ML VIAL IV SCH (07:47)
[2018-02-22] MEDS: METOPROLOL SUCCINATE (ER) 50 MG TAB.ER.24H PO SCH ×2 (07:47→21:07)
[2018-02-22] MEDS: DIGOXIN 125 MCG TAB PO SCH (07:47)
[2018-02-22] MEDS ORDERED: NON-FORMULARY DRUG (Omega-3 Fatty Acids/Fish Oil [Fish Oil 1,000 Mg Softgel] 1 CAP) PO SCH (09:00)
--- NOTE | 2018-02-22 09:08 | P.PN ---
Subjective patient is seen in follow-up for acute kidney injury. Creatinine peaked at 3.15 yesterday and is down to 2.6 today. He is maintained on normal saline at 100 mL an hour. Patient's hyperkalemia was medically treated and is in the normal ranges morning. He admits to good urine output. No nausea vomiting or diarrhea. Vital signs are stable. General: The patient appeared well nourished and normally developed. HEENT: Head exam is unremarkable. Neck is without jugular venous distension. LUNGS: Lungs are clear to auscultation and percussion. Breath sounds decreased. HEART: Rate and Rhythm are regular. First and second heart sounds normal. No murmurs, rubs or gallops. ABDOMEN: Abdominal exam reveals normal bowel sounds. Non-tender and non- distended. No evidence of peritonitis. EXTREMITITES: No clubbing, cyanosis, or edema. Objective - Vital Signs Vital signs: Vital Signs Temp 97.2 F L 02/22/18 04:00 Pulse 70 02/22/18 04:00 Resp 18 02/22/18 04:00 BP 135/53 02/22/18 04:00 Pulse Ox 98 02/22/18 04:00 Intake & Output 02/21/18 02/22/18 02/22/18 18:59 06:59 18:59 Intake Total 440 800 240 Output Total 550 1200 200 Balance -110 -400 40 Weight 109 kg Intake: IV 800 0.9 800 Oral 440 240 Output: Urine 550 1200 200 Other: Voiding Method Urinal # Voids 1 - Labs CBC & Chem 7: 02/22/18 06:13 02/22/18 06:13 Labs: Abnormal Lab Results - Last 24 Hours (Table) 02/20/18 02/20/18 02/21/18 Range/Units 21:13 22:59 11:45 RBC (4.30-5.90) m/uL Hgb (13.0-17.5) gm/dL Hct (39.0-53.0) % Plt Count (150-450) k/uL Lymphocytes # (1.0-4.8) k/uL Potassium (3.5-5.1) mmol/L BUN (9-20) mg/dL Creatinine (0.66-1.25) mg/dL Glucose (74-99) mg/dL POC Glucose (mg/dL) 406 H (75-99) mg/dL Hemoglobin A1c 8.4 H (4.0-6.0) % Calcium (8.4-10.2) mg/dL Magnesium (1.6-2.3) mg/dL Total Protein (6.3-8.2) g/dL Albumin (3.5-5.0) g/dL Stool Lactoferrin POSITIVE H (NEGATIVE) 02/21/18 02/21/18 02/21/18 Range/Units 13:31 16:54 20:37 RBC (4.30-5.90) m/uL Hgb (13.0-17.5) gm/dL Hct (39.0-53.0) % Plt Count (150-450) k/uL Lymphocytes # (1.0-4.8) k/uL Potassium 7.1 H* (3.5-5.1) mmol/L BUN (9-20) mg/dL Creatinine (0.66-1.25) mg/dL Glucose (74-99) mg/dL POC Glucose (mg/dL) 394 H 359 H (75-99) mg/dL Hemoglobin A1c (4.0-6.0) % Calcium (8.4-10.2) mg/dL Magnesium (1.6-2.3) mg/dL Total Protein (6.3-8.2) g/dL Albumin (3.5-5.0) g/dL Stool Lactoferrin (NEGATIVE) 02/22/18 02/22/18 02/22/18 Range/Units 05:42 06:13 06:13 RBC 3.39 L (4.30-5.90) m/uL Hgb 10.5 L (13.0-17.5) gm/dL Hct 32.1 L (39.0-53.0) % Plt Count 109 L (150-450) k/uL Lymphocytes # 0.6 L (1.0-4.8) k/uL Potassium (3.5-5.1) mmol/L BUN 66 H (9-20) mg/dL Creatinine 2.60 H (0.66-1.25) mg/dL Glucose 224 H (74-99) mg/dL POC Glucose (mg/dL) 241 H (75-99) mg/dL Hemoglobin A1c (4.0-6.0) % Calcium 10.3 H (8.4-10.2) mg/dL Magnesium 1.2 L (1.6-2.3) mg/dL Total Protein 5.8 L (6.3-8.2) g/dL Albumin 3.4 L (3.5-5.0) g/dL Stool Lactoferrin (NEGATIVE) Microbiology - Last 24 Hours (Table) 02/20/18 22:59 Stool Culture - Preliminary Stool Assessment and Plan Plan: Assessment: 1. Acute kidney injury secondary to ATN secondary to severe intravascular volume depletion from high output from the ostomy and further worsened with use of Aldactone and SRIDEVI inhibitor . Creatinine peaked at 3.15 this admission and is down to 2.6 today. Trace proteinuria on UA without any hematuria. No evidence of urinary retention. 2. Diarrhea. C. diff negative. 3. Hyperkalemia secondary to acute kidney injury, metabolic acidosis and further worsened with the use of Aldactone and SRIDEVI inhibitor. Improved with medical management. 4. Metabolic acidosis secondary to acute kidney injury and GI losses. Improved. 5. Hypertonic hyponatremia secondary to hyperglycemia. Improved. 6. History of ulcerative colitis status post total colectomy with ileostomy in place. 7. Diabetes mellitus. 8. Hypotension secondary to hypovolemia. Improved. 9. Hypomagnesemia from poor oral intake. 10. Hypercalcemia secondary to calcium supplementation. Plan: Continue normal saline at 100 mL an hour. Low potassium diet. Continue to hold diuretics. Discontinue calcium and vitamin D supplementation. Avoid nephrotoxins. Repeat electrolytes in the morning. Replace magnesium. 3 g IV today.
[2018-02-22 11:06] LABS: Glucose,Whole Blood 237 mg/dL (75-99)
[2018-02-22] MEDS: MAGNESIUM SULFATE-D5W PMX 1 GM in DEXTROSE/WATER 1 100ML.BAG IVPB SCH ×3 (11:10→14:38)
[2018-02-22] MEDS: MULTIVITAMINS, THERA 1 EACH TAB PO SCH (11:26)
[2018-02-22 16:29] LABS: Glucose,Whole Blood 258 mg/dL (75-99)
[2018-02-22 20:31] LABS: Glucose,Whole Blood 154 mg/dL (75-99)
[2018-02-22] MEDS: EDOXABAN TOSYLATE 60 MG TABLET PO SCH (21:07)
[2018-02-22] MEDS: ZOLPIDEM 5 MG TAB PO PRN (21:13)
--- NOTE | 2018-02-22 23:23 | PN ---
PROGRESS NOTE SUBJECTIVE: A 67-year-old white male, hyperkalemia, acute kidney injury, diarrhea. His creatinine is improving due to rehydration.. VITAL SIGNS: Stable, afebrile. CARDIOVASCULAR: S1, S2. LUNGS: Clear. GI: Soft. HEMATOLOGY: Negative [place]'. PSYCH: Fair mood and affect. ASSESSMENT: 1. Hyperkalemia. 2. Acute kidney injury. 3. Chronic diarrhea. Continue with fluid rehydration. Diet will be advanced. Possible discharge home in the next 24-48 hours as rehydration is proceeding. MMODL / IJN: [id number] /
[2018-02-23 06:08] LABS: Glucose,Whole Blood 137 mg/dL (75-99)
[2018-02-23] MEDS: SODIUM CHLORIDE 0.9% 1,000 ML IV SCH ×2 (06:50→11:09)
[2018-02-23] MEDS: INSULIN ASPART 100 UNIT/ML 1 ML 10 ML VIAL SQ SCH ×3 (06:51→17:32)
[2018-02-23] MEDS: DIAZEPAM 5 MG TAB PO SCH ×3 (06:52→17:33)
[2018-02-23] MEDS: Acetaminophen-Codeine 300-30mg TAB PO PRN ×3 (06:54→15:16)
[2018-02-23] MEDS: INSULN ASP PRT/INSULIN ASPART 100 UNIT/ML 10 ML VIAL SQ SCH ×2 (06:55→17:36)
[2018-02-23 07:00] LABS: Magnesium 1.5 mg/dL (1.6-2.3); Potassium 4.7 mmol/L (3.5-5.1)
[2018-02-23 08:15] VITALS: TEMP 98.4
[2018-02-23] MEDS: METOPROLOL SUCCINATE (ER) 50 MG TAB.ER.24H PO SCH (08:15)
[2018-02-23] MEDS: DIGOXIN 125 MCG TAB PO SCH (08:15)
[2018-02-23] MEDS: PANTOPRAZOLE 40 MG/10 ML VIAL IV SCH (08:16)
--- NOTE | 2018-02-23 09:39 | P.PN ---
Subjective patient is seen in follow-up for acute kidney injury. Creatinine peaked at 3.15 this admission and is down to 1.64 today. He is maintained on normal saline at 120 mL an hour. He admits to good urine output. No nausea vomiting or diarrhea. Hemodynamically stable. Vital signs are stable. General: The patient appeared well nourished and normally developed. HEENT: Head exam is unremarkable. Neck is without jugular venous distension. LUNGS: Lungs are clear to auscultation and percussion. Breath sounds decreased. HEART: Rate and Rhythm are regular. First and second heart sounds normal. No murmurs, rubs or gallops. ABDOMEN: Abdominal exam reveals normal bowel sounds. Non-tender and non- distended. No evidence of peritonitis. EXTREMITITES: No clubbing, cyanosis, or edema. Objective - Vital Signs Vital signs: Vital Signs Temp 98.4 F 02/23/18 08:14 Pulse 70 02/23/18 08:14 Resp 18 02/23/18 08:14 BP 120/64 02/23/18 08:14 Pulse Ox 95 02/23/18 08:14 Intake & Output 02/22/18 02/23/18 02/23/18 18:59 06:59 18:59 Intake Total 476 236 Output Total 600 1600 Balance -124 -1600 236 Weight 107.5 kg Intake: Oral 476 236 Output: Urine 600 1600 Other: Voiding Method Urinal - Labs CBC & Chem 7: 02/22/18 06:13 02/23/18 05:53 Labs: Abnormal Lab Results - Last 24 Hours (Table) 02/22/18 02/22/18 02/22/18 Range/Units 11:04 16:26 20:29 BUN (9-20) mg/dL Creatinine (0.66-1.25) mg/dL Glucose (74-99) mg/dL POC Glucose (mg/dL) 237 H 258 H 154 H (75-99) mg/dL Magnesium (1.6-2.3) mg/dL 02/23/18 02/23/18 Range/Units 05:53 06:07 BUN 49 H (9-20) mg/dL Creatinine 1.64 H (0.66-1.25) mg/dL Glucose 126 H (74-99) mg/dL POC Glucose (mg/dL) 137 H (75-99) mg/dL Magnesium 1.5 L (1.6-2.3) mg/dL Assessment and Plan Plan: Assessment: 1. Acute kidney injury secondary to ATN secondary to severe intravascular volume depletion from high output from the ostomy and further worsened with use of Aldactone and SRIDEVI inhibitor . Creatinine peaked at 3.15 this admission and is down to 1.6 today. Trace proteinuria on UA without any hematuria. No evidence of urinary retention. 2. Diarrhea. C. diff negative. 3. Hyperkalemia secondary to acute kidney injury, metabolic acidosis and further worsened with the use of Aldactone and SRIDEVI inhibitor. Improved with medical management. 4. Metabolic acidosis secondary to acute kidney injury and GI losses. Improved. 5. Hypertonic hyponatremia secondary to hyperglycemia. Improved. 6. History of ulcerative colitis status post total colectomy with ileostomy in place. 7. Diabetes mellitus. 8. Hypotension secondary to hypovolemia. Improved. 9. Hypomagnesemia from poor oral intake. 10. Hypercalcemia secondary to calcium supplementation. Improved after stopping calcium and vitamin D supplements. Plan: I will decrease rate of normal saline to 60 mL an hour. Low potassium diet. Continue to hold diuretics. Avoid nephrotoxins. Repeat electrolytes in the morning. Replace magnesium. 2 g IV today.
[2018-02-23] MEDS: MAGNESIUM SULFATE-D5W PMX 1 GM in DEXTROSE/WATER 1 100ML.BAG IVPB SCH ×2 (09:45→11:09)
[2018-02-23 11:35] LABS: Glucose,Whole Blood 267 mg/dL (75-99)
[2018-02-23] MEDS: MULTIVITAMINS, THERA 1 EACH TAB PO SCH (12:25)
[2018-02-23 16:43] VITALS: BP 116/54; PULSE 69
[2018-02-23 16:47] LABS: Glucose,Whole Blood 196 mg/dL (75-99)
[2018-02-23] MEDS ORDERED: CHOLESTYRAMINE (WITH SUGAR) 4 GM PACKET PO SCH (18:00)
== END 2018-02-23 18:13 | disposition home or self-care (01) | DRG 683 ==
LOC: EC 20:57 → 6SEL 02-21 00:33
PROVIDERS: ADMIT Family Medicine; ATTEND Family Medicine
DX: N17.0 Acute kidney failure with tubular necrosis (principal); E87.1 Hypo-osmolality and hyponatremia; E87.2 Acidosis; I42.9 Cardiomyopathy, unspecified; E11.65 Type 2 diabetes mellitus with hyperglycemia; E83.42 Hypomagnesemia; E83.52 Hypercalcemia; E86.0 Dehydration; E86.1 Hypovolemia; E87.5 Hyperkalemia; F41.0 Panic disorder [episodic paroxysmal anxiety]; I11.0 Hypertensive heart disease with heart failure; I48.91 Unspecified atrial fibrillation; I50.9 Heart failure, unspecified; Z79.4 Long term (current) use of insulin; Z81.1 Family history of alcohol abuse and dependence; Z82.49 Family history of ischemic heart disease and other diseases of the circulatory system; Z87.11 Personal history of peptic ulcer disease; Z87.442 Personal history of urinary calculi; Z87.891 Personal history of nicotine dependence; Z90.49 Acquired absence of other specified parts of digestive tract; Z93.2 Ileostomy status; Z95.810 Presence of automatic (implantable) cardiac defibrillator; Z88.3 Allergy status to other anti-infective agents; Z88.0 Allergy status to penicillin; Z79.891 Long term (current) use of opiate analgesic; Z79.899 Other long term (current) drug therapy; Z98.1 Arthrodesis status; E11.40 Type 2 diabetes mellitus with diabetic neuropathy, unspecified
CPT/HCPCS: 36415; 74176; 80048; 80053; 81001; 82150; 82272; 83036; 83630; 83690; 83735; 84132; 84484; 85025; 85610; 85730; 87045; 87046; 87324; 93005; 94640; 96361; 96365; 96366; 96375; 99285

== ENCOUNTER 2019-04-23 22:53 | Emergency (ER) | payer OTHER ==
[2019-04-23 23:00] VITALS: RESP 18; TEMP 98.3
[2019-04-23 23:51] LABS: Anisocytosis Slight; Basophils # (A) 0.1 k/uL (0-0.2); Basophils % (A) 0 %; Eosinophils # (A) 0.1 k/uL (0-0.7); Eosinophils % (A) 1 %; HCT 50.5 % (39.0-53.0); HGB 16.6 gm/dL (13.0-17.5); Lymphocytes # (A) 0.6 k/uL (1.0-4.8); Lymphocytes % (A) 4 %; MCH 29.9 pg (25.0-35.0); MCHC 32.9 g/dL (31.0-37.0); MCV 90.8 fL (80.0-100.0); Monocytes # (A) 0.7 k/uL (0-1.0); Monocytes % (A) 5 %; Neutrophils # (A) 13.9 k/uL (1.3-7.7); Neutrophils % (A) 90 %; Platelet Count 201 k/uL (150-450); RBC 5.57 m/uL (4.30-5.90); RDW 17.3 % (11.5-15.5); WBC 15.5 k/uL (3.8-10.6)
--- NOTE | 2019-04-23 23:51 | ED ---
General Adult HPI - General Chief complaint: Nausea/Vomiting/Diarrhea Stated complaint: NVD Time Seen by Provider: 04/23/19 22:56 Source: patient Mode of arrival: EMS Limitations: no limitations - History of Present Illness Initial comments: Dictation was produced using [employer] dictation software. please excuse any grammatical, word or spelling errors. Chief Complaint: 68-year-old male past medical history of ulcerative colitis status post colostomy placement presents with nausea, weakness and liquid output from ostomy. History of Present Illness: 68-year-old male is brought in by EMS. Patient has multiple comorbidities including atrial fibrillation, ulcerative colitis, deep venous thrombosis. He presents today for increased viscosity in his ostomy output. Patient states he's been feeling this way for the last 2-3 days. His symptoms increase. Patient also has nausea. He has had very poor oral intake recently. He states he is not really eating because he doesn't feel hungry. Patient is ostomy located in his left lower quadrant. Patient states the os was replaced for ulcerative colitis. He had these procedures performed at the [facility]. Patient states she has mild diffuse abdominal pain. He lives at home with his son who was unable to drive. States that he's been in the hospital for this before. He has history of significant electrolyte derangement. Denies any fever, chills or night sweats. The ROS documented in this emergency department record has been reviewed and confirmed by me. Those systems with pertinent positive or negative responses have been documented in the HPI. All other systems are other negative and/or noncontributory. PHYSICAL EXAM: General Impression: Alert and oriented x3, not in acute distress, disheveled and malodorous HEENT: Normocephalic atraumatic, extra-ocular movements intact, pupils equal and reactive to light bilaterally, dry mucous membranes Cardiovascular: Heart regular rate and rhythm, S1&S2 audible, no murmurs, rubs or gallops Chest: Lungs clear to auscultation bilaterally, no rhonchi, no wheeze, no rales Abdomen: Multiple abdominal scars, left lower quadrant ostomy, abdomen soft, diffuse abdominal tenderness, no rigidity or peritoneal signs Musculoskeletal: Pulses present and equal in all extremities, no peripheral edema Motor: no focal deficits noted Neurological: CN II-XII grossly intact, no focal motor or sensory deficits noted Skin: Intact with no visualized rashes Psych: Normal affect and mood ED course: 68-year-old male presents with nausea vomiting and increase output from the ostomy. As upon arrival are within acceptable limits.Laboratory evaluation obtained. Mild leukocytosis of 15.5 of uncertain significance. Coag panel unremarkable. Metabolic panel is negative. Patient has chronically elevated renal markers. Sugar is 238. Lipase 17. Abdominal x-ray shows nonspecific distention of the stomach. Patient reevaluated at bedside. Patient stable medical condition. Given 1 L normal saline bolus. Patient's pain is controlled. He reports that he ran out of his analgesic medications to go home with. Patient will be given small amount of Tylenol No. 4. Patient told to also maintain good hydration. Is given antinausea medications. EKG interpretation: Ventricular rate 71, ventricular paced rhythm, QRS 132, QTC 471. No MO prolongation, no QTC prolongation, no ST or T-wave changes noted. EKG compared to 04/23/2019 showing no changes. Overall, this EKG is unremarkable - Related Data Home Medications Medication Instructions Recorded Confirmed Acetaminophen with Codeine 1 - 2 tab PO Q4-6H PRN 08/06/16 04/23/19 [Tylenol w/codeine #4] Allopurinol [Zyloprim] 300 mg PO BID 08/06/16 04/23/19 Diazepam [Valium] 10 mg PO DAILY 08/06/16 04/23/19 Mirtazapine [Remeron] 45 mg PO HS 08/06/16 04/23/19 Metoprolol Succinate (ER) [Toprol 50 mg PO BID 12/15/16 04/23/19 XL] Insuln Asp Prt/Insulin Aspart 52 unit SQ AC-LUNCH 02/21/18 04/23/19 [NovoLOG MIX 70-30 VIAL] Digoxin [Lanoxin] 125 mcg PO DAILY 04/23/19 04/23/19 Edoxaban Tosylate [Savaysa] 60 mg PO DAILY 04/23/19 04/23/19 Enalapril [Vasotec] 5 mg PO BID 04/23/19 04/23/19 Ferrous Sulfate [Feosol] 325 mg PO DAILY 04/23/19 04/23/19 INSULIN ASPART (NovoLOG) [NovoLOG See Protocol SQ ACHS 04/23/19 04/23/19 (formulary)] Prochlorperazine [Compazine] 10 mg PO DAILY PRN 04/23/19 04/23/19 Zolpidem [Ambien] 10 mg PO HS PRN 04/23/19 04/23/19 Previous Rx's Medication Instructions Recorded Acetaminophen with Codeine 1 tab PO Q6H PRN 3 Days #12 tab 04/24/19 [Tylenol with Codeine #4 Tablet] Ondansetron Odt [Zofran Odt] 4 mg PO Q8HR PRN #12 tab 04/24/19 Allergies Allergy/AdvReac Type Severity Reaction Status Date / Time Iodine and Iodide Containing Allergy Swelling Verified 04/23/19 23:07 Produc of Tongue Penicillins Allergy Rash/Hives Verified 04/23/19 23:07 Review of Systems ROS Statement: Those systems with pertinent positive or pertinent negative responses have been documented in the HPI. ROS Other: All systems not noted in ROS Statement are negative. 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 History of Any Multi-Drug Resistant Organisms: None Reported Past Surgical History: AICD, Appendectomy, Back Surgery, Cholecystectomy, Heart Catheterization, Hernia Repair, Tonsillectomy Additional Past Surgical History / Comment(s): Ileostomy and a revision, BiV-ICD implanted in 2006 with gen change 2011, cardiac cath-normal, EGD/colonoscopies, cystoscopy, lithotripsies, bilateral ureteral stents, cervical fusion with plate, R inguinal hernia repair. Past Anesthesia/Blood Transfusion Reactions: No Reported Reaction Additional Past Anesthesia/Blood Transfusion Reaction / Comment(s): Limited ROM with neck. Type of Cardiac Device: AICD Device Placement Date:: 2006 Past Psychological History: Anxiety, Depression, Panic Disorder Smoking Status: Former smoker - Past Family History Father Additional Family Medical History / Comment(s): Father of alcoholism. Mother Family Medical History: Hypertension Additional Family Medical History / Comment(s): Diverticular disease. Mother in her 80's. General Exam Limitations: no limitations Course Vital Signs 04/23/19 22:58 Temperature 98.3 F Pulse Rate 72 Respiratory 18 Rate Blood Pressure 119/74 O2 Sat by Pulse 92 L Oximetry Medical Decision Making - Lab Data Result diagrams: 04/23/19 23:42 04/23/19 23:42 Lab Results 04/23/19 04/23/19 04/23/19 Range/Units 23:42 23:42 23:42 WBC 15.5 H (3.8-10.6) k/uL RBC 5.57 (4.30-5.90) m/uL Hgb 16.6 (13.0-17.5) gm/dL Hct 50.5 (39.0-53.0) % MCV 90.8 (80.0-100.0) fL MCH 29.9 (25.0-35.0) pg MCHC 32.9 (31.0-37.0) g/dL RDW 17.3 H (11.5-15.5) % Plt Count 201 (150-450) k/uL Neutrophils % 90 % Lymphocytes % 4 % Monocytes % 5 % Eosinophils % 1 % Basophils % 0 % Neutrophils # 13.9 H (1.3-7.7) k/uL Lymphocytes # 0.6 L (1.0-4.8) k/uL Monocytes # 0.7 (0-1.0) k/uL Eosinophils # 0.1 (0-0.7) k/uL Basophils # 0.1 (0-0.2) k/uL Anisocytosis Slight PT 11.9 (9.0-12.0) sec INR 1.1 (<1.2) APTT 23.1 (22.0-30.0) sec Sodium 139 (137-145) mmol/L Potassium 4.8 (3.5-5.1) mmol/L Chloride 102 (98-107) mmol/L Carbon Dioxide 22 (22-30) mmol/L Anion Gap 15 mmol/L BUN 33 H (9-20) mg/dL Creatinine 1.26 H (0.66-1.25) mg/dL Est GFR (CKD-EPI)AfAm 68 (>60 ml/min/1.73 sqM) Est GFR (CKD-EPI)NonAf 59 (>60 ml/min/1.73 sqM) Glucose 238 H (74-99) mg/dL Calcium 10.5 H (8.4-10.2) mg/dL Magnesium 1.6 (1.6-2.3) mg/dL Total Bilirubin 1.1 (0.2-1.3) mg/dL AST 68 H (17-59) U/L ALT 74 H (21-72) U/L Alkaline Phosphatase 86 (38-126) U/L Total Protein 8.0 (6.3-8.2) g/dL Albumin 4.8 (3.5-5.0) g/dL Lipase 718 H (23-300) U/L Disposition Clinical Impression: Nausea & vomiting Disposition: HOME SELF-CARE Condition: Good Instructions (If sedation given, give patient instructions): Acute Nausea and Vomiting (ED) Prescriptions: Acetaminophen with Codeine [Tylenol with Codeine #4 Tablet] 1 tab PO Q6H PRN 3 Days #12 tab PRN Reason: Pain Ondansetron Odt [Zofran Odt] 4 mg PO Q8HR PRN #12 tab PRN Reason: Nausea Is patient prescribed a controlled substance at d/c from ED?: Yes If prescribed controlled substance>3 days was MAPS reviewed?: Prescribed <3 Days Referrals: Micah Moy MD [Primary Care Provider] - 1-2 days Time of Disposition: 01:12
[2019-04-24 00:01] LABS: INR 1.1 (<1.2); Partial Thromboplastin Time 23.1 sec (22.0-30.0); Prothrombin Time 11.9 sec (9.0-12.0)
[2019-04-24 00:04] LABS: Albumin 4.8 g/dL (3.5-5.0); Calcium 10.5 mg/dL (8.4-10.2); Magnesium 1.6 mg/dL (1.6-2.3); Potassium 4.8 mmol/L (3.5-5.1); Total Bilirubin 1.1 mg/dL (0.2-1.3)
[2019-04-24] MEDS ORDERED: SODIUM CHLORIDE 0.9% 1,000 ML IV STA (00:31)
[2019-04-24] MEDS ORDERED: ONDANSETRON 4 MG/2 ML VIAL IVP STA (00:36)
--- NOTE | 2019-04-24 00:58 | XR ---
EXAM: XR Abdomen, 2 Views and XR Chest, 1 View CLINICAL HISTORY: ITS.REASON XR Reason: increased ostomy output TECHNIQUE: Frontal view of the chest, frontal view of the abdomen/pelvis and upright or decubitus view of the abdomen. COMPARISON: CT abdomen 02/20/18 Impression: Cardiomegaly. Left spigelian hernia. Stomach is moderately distended, nonspecific. No bowel obstruction. No definite free air. No fracture.
[2019-04-24] MEDS ORDERED: HYDROcodone/APAP 5-325MG 1 EACH TAB PO STA (01:06)
[2019-04-24 01:26] VITALS: BP 129/73; PULSE 70
== END 2019-04-24 01:26 | disposition home or self-care (01) ==
LOC: EC 22:53
DX: R11.2 Nausea with vomiting, unspecified (principal); I48.91 Unspecified atrial fibrillation; F41.9 Anxiety disorder, unspecified; E11.40 Type 2 diabetes mellitus with diabetic neuropathy, unspecified; I25.2 Old myocardial infarction; I42.8 Other cardiomyopathies; R10.9 Unspecified abdominal pain; F32.9 Major depressive disorder, single episode, unspecified; I11.0 Hypertensive heart disease with heart failure; I50.9 Heart failure, unspecified; Z79.01 Long term (current) use of anticoagulants; Z79.899 Other long term (current) drug therapy; Z79.4 Long term (current) use of insulin; Z91.041 Radiographic dye allergy status; Z88.0 Allergy status to penicillin; Z95.810 Presence of automatic (implantable) cardiac defibrillator; Z87.11 Personal history of peptic ulcer disease; Z86.718 Personal history of other venous thrombosis and embolism; Z93.3 Colostomy status; Z87.891 Personal history of nicotine dependence; Z87.19 Personal history of other diseases of the digestive system
CPT/HCPCS: 36415; 93005; 80053; 83690; 83735; 85025; 85610; 85730; 74022; 99285; 96374; J2405

== ENCOUNTER 2021-05-02 09:17 | Inpatient (IN) | payer OTHER ==
--- NOTE | 2021-05-02 10:17 | ED ---
General Adult HPI - General Chief complaint: Abdominal Pain Stated complaint: Malnourishment Time Seen by Provider: 05/02/21 09:18 Source: EMS Mode of arrival: EMS Limitations: no limitations - History of Present Illness Initial comments: Dictation was produced using [employer] dictation software. please excuse any grammatical, word or spelling errors. Chief Complaint: 70-year-old male multiple comorbidities presents with redness around ostomy site History of Present Illness: 62-year-old male there was some redness noted around his ostomy site by family members. EMS was called. Patient was brought to the emergency department. Patient is a poor historian. EMS reports that patient was very filthy and there was disheveled area that patient was in. There is concern of bed bugs. Patient not able to tell me if he has had home health care. Denies any specific symptoms at this time. Unable to get detailed review of systems secondary to mental status PHYSICAL EXAM: General Impression: Alert and oriented x3, not in acute distress, malodorous, filthy HEENT: Normocephalic atraumatic, extra-ocular movements intact, pupils equal and reactive to light bilaterally, mucous membranes moist. Cardiovascular: Heart regular rate and rhythm Chest: Able to complete full sentences, no retractions, no tachypnea Abdomen: abdomen soft, non-tender, non-distended, no organomegaly, ostomy site to the left lower quadrant with surrounding erythema Musculoskeletal: Pulses present and equal in all extremities, no peripheral edema Motor: no focal deficits noted Neurological: CN II-XII grossly intact, no focal motor or sensory deficits noted Skin: Intact with no visualized rashes, no decubitus ulcers Psych: Normal affect and mood ED course: 62-year-old male presents to the emergency department for erythema around ostomy site. Patient is very disheveled. There is concern that patient has very poor social situation. Vital signs upon arrival are within acceptable limits. Laboratory evaluation obtained. Leukocytosis 22.5 neutrophils 90.8. Some clear what is causing patient's leukocytosis. His likely secondary to stress. Ho wever cannot rule out bacterial infection. Coag panel is unremarkable. Severe likely derangement with sodium 112, potassium 7.4 with a recheck of 6.5. There is an elevated anion gap acidosis. Elevated BUN of 38. Like S dose 3.6. Urinalysis negative. Coronavirus negative. Chest x-ray is nonacute. Computed tomography scan of the abdomen and pelvis shows no acute processes. Patient does not have any localizing symptoms. Pending blood cultures. Computed tomography scan shows no intra-abdominal processes. At this point no obvious source of bacterial infection. Patient has pending blood cultures. Patient meets Sirs criteria. Patient admitted to the ICU for critical electrolyte dera ngement. Case discussed with Dr. Ochoa was willing to accept patient in ICU. Nephrology consulted. Patient be admitted to Dr. Moy. Patient's hyperkalemia treated with dextrose, fluids and insulin. No indication for calcium administration at this time. He does not have any EKG changes concer emily for critical hyperkalemia. EKG interpretation: Ventricular rate 68, paced rhythm, QRS 140, QTc 576. No AL prolongation, no QTC prolongation, no ST or T-wave changes noted. EKG compared to 04/23/2019 showing no changes. Overall, this EKG is unremarkable - Related Data Home Medications Medication Instructions Recorded Confirmed Acetaminophen with Codeine 1 - 2 tab PO Q4-6H PRN 08/06/16 04/23/19 [Tylenol w/codeine #4] Mirtazapine [Remeron] 45 mg PO HS 08/06/16 04/23/19 allopurinoL [Zyloprim] 300 mg PO BID 08/06/16 04/23/19 diazePAM [Valium] 10 mg PO DAILY 08/06/16 04/23/19 Metoprolol Succinate (ER) [Toprol 50 mg PO BID 12/15/16 04/23/19 XL] Insuln Asp Prt/Insulin Aspart 52 unit SQ AC-LUNCH 02/21/18 04/23/19 [NovoLOG MIX 70-30 VIAL] Digoxin [Lanoxin] 125 mcg PO DAILY 04/23/19 04/23/19 Edoxaban Tosylate [Savaysa] 60 mg PO DAILY 04/23/19 04/23/19 Enalapril [Vasotec] 5 mg PO BID 04/23/19 04/23/19 Ferrous Sulfate [Feosol] 325 mg PO DAILY 04/23/19 04/23/19 INSULIN ASPART (NovoLOG) [NovoLOG See Protocol SQ ACHS 04/23/19 04/23/19 (formulary)] Prochlorperazine [Compazine] 10 mg PO DAILY PRN 04/23/19 04/23/19 Zolpidem [Ambien] 10 mg PO HS PRN 04/23/19 04/23/19 Previous Rx's Medication Instructions Recorded Acetaminophen with Codeine 1 tab PO Q6H PRN 3 Days #12 tab 04/24/19 [Tylenol with Codeine #4 Tablet] Ondansetron Odt [Zofran Odt] 4 mg PO Q8HR PRN #12 tab 04/24/19 Allergies Allergy/AdvReac Type Severity Reaction Status Date / Time Iodine and Iodide Containing Allergy Swelling Verified 05/02/21 10:03 Produc of Tongue Penicillins Allergy Rash/Hives Verified 05/02/21 10:03 Review of Systems ROS Statement: Those systems with pertinent positive or pertinent negative responses have been documented in the HPI. ROS Other: All systems not noted in ROS Statement are negative. 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 History of Any Multi-Drug Resistant Organisms: None Reported Past Surgical History: AICD, Appendectomy, Back Surgery, Cholecystectomy, Heart Catheterization, Hernia Repair, Tonsillectomy Additional Past Surgical History / Comment(s): Ileostomy and a revision, BiV-ICD implanted in 2006 with gen change 2011, cardiac cath-normal, EGD/colonoscopies, cystoscopy, lithotripsies, bilateral ureteral stents, cervical fusion with plate, R inguinal hernia repair. Past Anesthesia/Blood Transfusion Reactions: No Reported Reaction Additional Past Anesthesia/Blood Transfusion Reaction / Comment(s): Limited ROM with neck. Type of Cardiac Device: AICD Device Placement Date:: 2006 Past Psychological History: Anxiety, Depression, Panic Disorder Smoking Status: Unknown if ever smoked Past Alcohol Use History: None Reported Past Drug Use History: None Reported - Past Family History Father Additional Family Medical History / Comment(s): Father of alcoholism. Mother Family Medical History: Hypertension Additional Family Medical History / Comment(s): Diverticular disease. Mother in her 80's. General Exam Limitations: no limitations Course Vital Signs 05/02/21 05/02/21 09:59 11:50 Temperature 98 F Pulse Rate 72 72 Respiratory 18 18 Rate Blood Pressure 125/63 116/68 O2 Sat by Pulse 98 100 Oximetry Medical Decision Making - Lab Data Result diagrams: 05/02/21 10:25 05/02/21 11:20 Lab Results 05/02/21 05/02/21 05/02/21 Range/Units 10:18 10:25 10:25 WBC 22.5 H (3.8-10.6) k/uL RBC 5.12 (4.30-5.90) m/uL Hgb 15.7 (13.0-17.5) gm/dL Hct 44.5 (39.0-53.0) % MCV 86.9 (80.0-100.0) fL MCH 30.6 (25.0-35.0) pg MCHC 35.3 (31.0-37.0) g/dL RDW 15.1 (11.5-15.5) % Plt Count 271 (150-450) k/uL MPV 9.1 Neutrophils % 88 % Lymphocytes % 5 % Monocytes % 5 % Eosinophils % 0 % Basophils % 0 % Neutrophils # 19.8 H (1.3-7.7) k/uL Lymphocytes # 1.2 (1.0-4.8) k/uL Monocytes # 1.2 H (0-1.0) k/uL Eosinophils # 0.1 (0-0.7) k/uL Basophils # 0.1 (0-0.2) k/uL Hyperchromasia Moderate Poikilocytosis Slight PT (9.0-12.0) sec INR (<1.2) APTT (22.0-30.0) sec Sodium 112 L* (137-145) mmol/L Potassium 7.4 H* (3.5-5.1) mmol/L Chloride 85 L (98-107) mmol/L Carbon Dioxide 11 L (22-30) mmol/L Anion Gap 16 mmol/L BUN 38 H (9-20) mg/dL Creatinine 0.98 (0.66-1.25) mg/dL Est GFR (CKD-EPI)AfAm >90 (>60 ml/min/1.73 sqM) Est GFR (CKD-EPI)NonAf 80 (>60 ml/min/1.73 sqM) Glucose 242 H (74-99) mg/dL Plasma Lactic Acid Jem (0.7-2.0) mmol/L Calcium 9.6 (8.4-10.2) mg/dL Magnesium 1.9 (1.6-2.3) mg/dL Total Bilirubin 1.0 (0.2-1.3) mg/dL AST 51 (17-59) U/L ALT 73 H (4-49) U/L Alkaline Phosphatase 99 (38-126) U/L Ammonia (<30) umol/L Total Protein 6.7 (6.3-8.2) g/dL Albumin 3.9 (3.5-5.0) g/dL Urine Color Urine Appearance (Clear) Urine pH (5.0-8.0) Ur Specific [place] (1.001-1.035) Urine Protein (Negative) Urine Glucose (UA) (Negative) Urine Ketones (Negative) Urine Blood (Negative) Urine Nitrite (Negative) Urine Bilirubin (Negative) Urine Urobilinogen (<2.0) mg/dL Ur Leukocyte Esterase (Negative) Urine RBC (0-5) /hpf Urine WBC (0-5) /hpf Ur Squamous Epith Cells (0-4) /hpf Calcium Oxalate Crystal (None) /hpf Amorphous Sediment (None) /hpf Urine Bacteria (None) /hpf Urine Mucus (None) /hpf Coronavirus (PCR) Not Detected (Not Detectd) 05/02/21 05/02/21 05/02/21 Range/Units 10:25 10:25 10:54 WBC (3.8-10.6) k/uL RBC (4.30-5.90) m/uL Hgb (13.0-17.5) gm/dL Hct (39.0-53.0) % MCV (80.0-100.0) fL MCH (25.0-35.0) pg MCHC (31.0-37.0) g/dL RDW (11.5-15.5) % Plt Count (150-450) k/uL MPV Neutrophils % % Lymphocytes % % Monocytes % % Eosinophils % % Basophils % % Neutrophils # (1.3-7.7) k/uL Lymphocytes # (1.0-4.8) k/uL Monocytes # (0-1.0) k/uL Eosinophils # (0-0.7) k/uL Basophils # (0-0.2) k/uL Hyperchromasia Poikilocytosis PT 11.2 (9.0-12.0) sec INR 1.1 (<1.2) APTT 23.3 (22.0-30.0) sec Sodium (137-145) mmol/L Potassium (3.5-5.1) mmol/L Chloride (98-107) mmol/L Carbon Dioxide (22-30) mmol/L Anion Gap mmol/L BUN (9-20) mg/dL Creatinine (0.66-1.25) mg/dL Est GFR (CKD-EPI)AfAm (>60 ml/min/1.73 sqM) Est GFR (CKD-EPI)NonAf (>60 ml/min/1.73 sqM) Glucose (74-99) mg/dL Plasma Lactic Acid Jem 3.6 H* (0.7-2.0) mmol/L Calcium (8.4-10.2) mg/dL Magnesium (1.6-2.3) mg/dL Total Bilirubin (0.2-1.3) mg/dL AST (17-59) U/L ALT (4-49) U/L Alkaline Phosphatase (38-126) U/L Ammonia 13 (<30) umol/L Total Protein (6.3-8.2) g/dL Albumin (3.5-5.0) g/dL Urine Color Yellow Urine Appearance Clear (Clear) Urine pH 5.0 (5.0-8.0) Ur Specific [place] 1.013 (1.001-1.035) Urine Protein Negative (Negative) Urine Glucose (UA) Negative (Negative) Urine Ketones 1+ H (Negative) Urine Blood Small H (Negative) Urine Nitrite Negative (Negative) Urine Bilirubin Negative (Negative) Urine Urobilinogen <2.0 (<2.0) mg/dL Ur Leukocyte Esterase Negative (Negative) Urine RBC 21 H (0-5) /hpf Urine WBC 2 (0-5) /hpf Ur Squamous Epith Cells <1 (0-4) /hpf Calcium Oxalate Crystal Rare H (None) /hpf Amorphous Sediment Rare H (None) /hpf Urine Bacteria Rare H (None) /hpf Urine Mucus Rare H (None) /hpf Coronavirus (PCR) (Not Detectd) 05/02/21 Range/Units 11:20 WBC (3.8-10.6) k/uL RBC (4.30-5.90) m/uL Hgb (13.0-17.5) gm/dL Hct (39.0-53.0) % MCV (80.0-100.0) fL MCH (25.0-35.0) pg MCHC (31.0-37.0) g/dL RDW (11.5-15.5) % Plt Count (150-450) k/uL MPV Neutrophils % % Lymphocytes % % Monocytes % % Eosinophils % % Basophils % % Neutrophils # (1.3-7.7) k/uL Lymphocytes # (1.0-4.8) k/uL Monocytes # (0-1.0) k/uL Eosinophils # (0-0.7) k/uL Basophils # (0-0.2) k/uL Hyperchromasia Poikilocytosis PT (9.0-12.0) sec INR (<1.2) APTT (22.0-30.0) sec Sodium (137-145) mmol/L Potassium 6.5 H* (3.5-5.1) mmol/L Chloride (98-107) mmol/L Carbon Dioxide (22-30) mmol/L Anion Gap mmol/L BUN (9-20) mg/dL Creatinine (0.66-1.25) mg/dL Est GFR (CKD-EPI)AfAm (>60 ml/min/1.73 sqM) Est GFR (CKD-EPI)NonAf (>60 ml/min/1.73 sqM) Glucose (74-99) mg/dL Plasma Lactic Acid Jem (0.7-2.0) mmol/L Calcium (8.4-10.2) mg/dL Magnesium (1.6-2.3) mg/dL Total Bilirubin (0.2-1.3) mg/dL AST (17-59) U/L ALT (4-49) U/L Alkaline Phosphatase (38-126) U/L Ammonia (<30) umol/L Total Protein (6.3-8.2) g/dL Albumin (3.5-5.0) g/dL Urine Color Urine Appearance (Clear) Urine pH (5.0-8.0) Ur Specific [place] (1.001-1.035) Urine Protein (Negative) Urine Glucose (UA) (Negative) Urine Ketones (Negative) Urine Blood (Negative) Urine Nitrite (Negative) Urine Bilirubin (Negative) Urine Urobilinogen (<2.0) mg/dL Ur Leukocyte Esterase (Negative) Urine RBC (0-5) /hpf Urine WBC (0-5) /hpf Ur Squamous Epith Cells (0-4) /hpf Calcium Oxalate Crystal (None) /hpf Amorphous Sediment (None) /hpf Urine Bacteria (None) /hpf Urine Mucus (None) /hpf Coronavirus (PCR) (Not Detectd) Critical Care Time Critical Care Time: Yes Total Critical Care Time: 33 Disposition Clinical Impression: Hyponatremia, Failure to thrive, Hyperkalemia Disposition: ADMITTED IP TO THIS [facility] Condition: Critical Referrals: Micah Moy MD [Primary Care Provider] - 1-2 days
[2021-05-02 10:49] LABS: INR 1.1 (<1.2); Partial Thromboplastin Time 23.3 sec (22.0-30.0); Prothrombin Time 11.2 sec (9.0-12.0)
[2021-05-02 10:52] LABS: ALT 73 U/L (4-49); AST 51 U/L (17-59); African American GFR (CKD) >90 (>60 ml/min/1.73 sqM); Albumin 3.9 g/dL (3.5-5.0); Alkaline Phosphatase 99 U/L (38-126); Anion Gap 16 mmol/L; Blood Urea Nitrogen 38 mg/dL (9-20); Calcium 9.6 mg/dL (8.4-10.2); Carbon Dioxide 11 mmol/L (22-30); Chloride 85 mmol/L (98-107); Glucose 242 mg/dL (74-99); Magnesium 1.9 mg/dL (1.6-2.3); Non-African American GFR(CKD) 80 (>60 ml/min/1.73 sqM); Total Protein 6.7 g/dL (6.3-8.2)
[2021-05-02 10:58] LABS: Basophils # (A) 0.1 k/uL (0-0.2); Basophils % (A) 0 %; Eosinophils # (A) 0.1 k/uL (0-0.7); Eosinophils % (A) 0 %; HCT 44.5 % (39.0-53.0); HGB 15.7 gm/dL (13.0-17.5); Hyperchromasia Moderate; Lymphocytes # (A) 1.2 k/uL (1.0-4.8); Lymphocytes % (A) 5 %; MCH 30.6 pg (25.0-35.0); MCHC 35.3 g/dL (31.0-37.0); MCV 86.9 fL (80.0-100.0); Mean Platelet Volume 9.1; Monocytes # (A) 1.2 k/uL (0-1.0); Monocytes % (A) 5 %; Neutrophils # (A) 19.8 k/uL (1.3-7.7); Neutrophils % (A) 88 %; Platelet Count 271 k/uL (150-450); Poikilocytosis Slight; RBC 5.12 m/uL (4.30-5.90); RDW 15.1 % (11.5-15.5); WBC 22.5 k/uL (3.8-10.6)
[2021-05-02 11:01] LABS: Lactic Acid, Venous 3.6 mmol/L (0.7-2.0)
[2021-05-02 11:03] LABS: Sodium 112 mmol/L (137-145)
[2021-05-02 11:04] LABS: Potassium 7.4 mmol/L (3.5-5.1)
[2021-05-02] MEDS ORDERED: DEXAMETHASONE SOD PHOSPHATE 10 MG/ML 1 ML VIAL IV STA (11:04)
[2021-05-02] MEDS ORDERED: diphenhydrAMINE 50 MG/ML 1 ML VIAL IVP STA (11:04)
[2021-05-02] MEDS ORDERED: FAMOTIDINE 20 MG/2 ML VIAL IV STA (11:04)
[2021-05-02] MEDS ORDERED: SODIUM CHLORIDE 0.9% 1,000 ML IV STA (11:04)
[2021-05-02] MEDS ORDERED: INSULIN REGULAR 100 UNIT/ML VIAL (IV) IV ONE (11:06)
[2021-05-02] MEDS ORDERED: DEXTROSE 50% SYRINGE 50 ML IVP STA (11:06)
[2021-05-02 11:13] LABS: Amorphous Sediment,Urine Rare /hpf; Appearance,Urine Clear (Clear); Bacteria,Urine Rare /hpf; Bilirubin,Urine Negative (Negative); Blood,Urine Small (Negative); Calcium Oxalate Crystals,Urine Rare /hpf; Color,Urine Yellow; Glucose,Urine (UA) Negative (Negative); Ketones,Urine 1+ (Negative); Leukocyte Esterase,Urine Negative (Negative); Mucus,Urine Rare /hpf; Nitrite,Urine Negative (Negative); Protein,Urine Negative (Negative); RBC,Urine 21 /hpf (0-5); Specific Gravity,Urine 1.013 (1.001-1.035); Squamous Epithelial Cell,Urine <1 /hpf (0-4); Urobilinogen,Urine <2.0 mg/dL (<2.0); WBC,Urine 2 /hpf (0-5)
--- NOTE | 2021-05-02 11:18 | XR ---
EXAMINATION TYPE: XR chest 1V portable DATE OF EXAM: 05/02/2021 HISTORY: Shortness of breath. COMPARISON: 08/06/2016 TECHNIQUE: Single view of the chest is submitted. FINDINGS: Demonstrated are scattered senescent parenchymal change. There is no evidence for focal infiltrate. The heart is stable. Hilar and mediastinal structures are within normal limits. Degenerative changes are seen of the dorsal spine. IMPRESSION: 1. Chronic changes without evidence for acute pulmonary disease.
--- NOTE | 2021-05-02 12:04 | CT ---
EXAMINATION TYPE: CT abdomen pelvis w con DATE OF EXAM: 05/02/2021 COMPARISON: CT abdomen and pelvis February 20, 2018 HISTORY: erythema around ostomy site, pain and swelling CT DLP: 1364.4 mGycm, Automated Exposure Control for Dose Reduction was Utilized. CONTRAST: CT scan of the abdomen and pelvis is performed without oral and with IV Contrast, patient injected wi th 100 mL of Isovue 300. FINDINGS: LUNG BASES: Multi lead pacemaker partially imaged. Bibasilar scarring and volume loss redemonstrated. LIVER/GB: Small liver with lobulated margins consistent with cirrhosis. PANCREAS: Mild generalized fat replaced atrophy redemonstrated. SPLEEN: No significant abnormality is seen. ADRENALS: No significant abnormality is seen. KIDNEYS: More prominent cortical thinning from prior study. Payton catheter in decompressed bladder . BOWEL: Wide mouth left sided parastomal hernia containing fat and mesenteric vessels and nondilated bowel is redemonstrated. No suspicious focal fluid collection. No suspicious new fat stranding. Rem nant rectal pouch redemonstrated. Persistent left-sided colostomy. No suspicious small or large bowel dilatation PROSTATE/SEMINAL VESICLES: Stable and Upper limits of normal. LYMPH NODES: No greater than 1cm abdominal or pelvic lymph nodes are appreciated. OSSEOUS STRUCTURES: Coxa valga positioning. OTHER: Mild to moderate peripheral plaque in the abdominal aorta extends into branch vessels. IMPRESSION: Persistent large parastomal hernia. No new suspicious inflammatory change or focal fluid collection.
[2021-05-02] MEDS ORDERED: NALOXONE 0.4 MG/ML 1 ML VIAL IV PRN (12:34)
[2021-05-02 13:51] LABS: Glucose,Whole Blood 342 mg/dL (75-99)
[2021-05-02 16:11] LABS: African American GFR (CKD) >90 (>60 ml/min/1.73 sqM); Anion Gap 11 mmol/L; Blood Urea Nitrogen 34 mg/dL (9-20); Calcium 9.1 mg/dL (8.4-10.2); Carbon Dioxide 13 mmol/L (22-30); Chloride 91 mmol/L (98-107); Glucose 233 mg/dL (74-99); Non-African American GFR(CKD) >90 (>60 ml/min/1.73 sqM); Potassium 5.4 mmol/L (3.5-5.1)
[2021-05-02 16:13] LABS: Sodium 115 mmol/L (137-145)
--- NOTE | 2021-05-02 16:51 | P.CNPUL ---
History of Present Illness Consult date: 05/02/21 Reason for consult: COPD, other Chief complaint: Patient was brought in by EMS was an extremely unhygienic condition with si History of present illness: Patient seen eval examined in ICU currently awake but cannot give him detailed history, lives by himself at home however family members noted erythematous redness around ostomy site, patient was in very disheveled condition with the concern of bed bugs unable to obtain detailed history, however patient has a history of extensive multiple abdominal surgery with absence of colon and presence of ileostomy, labs are significant for leukocytosis with WBC count 22,000, sodium was only 112, potassium 7.4, repeat was 6.5, BUN is 38, coated was negative chest x-ray unremarkable urinalysis was negative as well computed tomography scan of the abdominal and pelvis no acute process seen, blood cultures are been obtained, nephrology consultation obtained due to significant hyponatremia, patient had a liter of normal saline and Decadron, repeat labs revealed sodium 115 potassium 5.4. 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 History of Any Multi-Drug Resistant Organisms: None Reported Past Surgical History: AICD, Appendectomy, Back Surgery, Cholecystectomy, Heart Catheterization, Hernia Repair, Tonsillectomy Additional Past Surgical History / Comment(s): Ileostomy and a revision, BiV-ICD implanted in 2006 with gen change 2011, cardiac cath-normal, EGD/colonoscopies, cystoscopy, lithotripsies, bilateral ureteral stents, cervical fusion with plate, R inguinal hernia repair. Past Anesthesia/Blood Transfusion Reactions: No Reported Reaction Additional Past Anesthesia/Blood Transfusion Reaction / Comment(s): Limited ROM with neck. Type of Cardiac Device: AICD Device Placement Date:: 2006 Past Psychological History: Anxiety, Depression, Panic Disorder Smoking Status: Unknown if ever smoked Past Alcohol Use History: None Reported Past Drug Use History: None Reported - Past Family History Father Additional Family Medical History / Comment(s): Father of alcoholism. Mother Family Medical History: Hypertension Additional Family Medical History / Comment(s): Diverticular disease. Mother in her 80's. Medications and Allergies Home Medications Medication Instructions Recorded Confirmed Type Mirtazapine [Remeron] 45 mg PO DIRECTED 08/06/16 05/02/21 History allopurinoL [Zyloprim] 300 mg PO DIRECTED 08/06/16 05/02/21 History diazePAM [Valium] 5 mg PO DIRECTED 08/06/16 05/02/21 History Insuln Asp Prt/Insulin Aspart 1 dose SQ DIRECTED 02/21/18 05/02/21 History [NovoLOG MIX 70-30 VIAL] Digoxin [Lanoxin] 62.5 mcg PO DIRECTED 04/23/19 05/02/21 History Acetaminophen with Codeine 1 tab PO DIRECTED 05/02/21 05/02/21 History [Tylenol with Codeine #4 Tablet] Ferrous Sulfate [Feosol] 325 mg PO DIRECTED 05/02/21 05/02/21 History Metoprolol Tartrate [Lopressor] 50 mg PO DIRECTED 05/02/21 05/02/21 History Allergies Allergy/AdvReac Type Severity Reaction Status Date / Time Iodine and Iodide Containing Allergy Swelling Verified 05/02/21 13:38 Produc of Tongue Penicillins Allergy Rash/Hives Verified 05/02/21 13:38 Physical Exam Vitals: Vital Signs Temp Pulse Resp BP Pulse Ox 05/02/21 15:00 70 16 118/69 95 05/02/21 14:00 73 24 120/70 95 05/02/21 13:34 97.4 F L 69 18 126/70 98 05/02/21 11:50 72 18 116/68 100 05/02/21 09:59 98 F 72 18 125/63 98 Intake and Output 05/02/21 05/02/21 05/02/21 06:59 14:59 22:59 Other: Weight 65.771 kg Alert and oriented x3, not in acute distress, malodorous, filthy HEENT: Normocephalic atraumatic, extra-ocular movements intact, pupils equal and reactive to light bilaterally, mucous membranes moist. Cardiovascular: Heart regular rate and rhythm Chest: Able to complete full sentences, no retractions, no tachypnea Abdomen: abdomen soft, non-tender, non-distended, no organomegaly, ostomy site to the left lower quadrant with surrounding erythema Musculoskeletal: Pulses present and equal in all extremities, no peripheral edema Motor: no focal deficits noted Neurological: CN II-XII grossly intact, no focal motor or sensory deficits noted Skin: Intact with no visualized rashes, no decubitus ulcers Psych: Normal affect and mood Results - Laboratory Findings CBC and BMP: 05/02/21 10:25 05/02/21 15:39 PT/INR, D-dimer PT 11.2 sec (9.0-12.0) 05/02/21 10:25 INR 1.1 (<1.2) 05/02/21 10:25 Abnormal lab findings: Abnormal Labs 05/02/21 05/02/21 05/02/21 10:25 10:25 10:25 WBC 22.5 H Neutrophils # 19.8 H Monocytes # 1.2 H Sodium 112 L* Potassium 7.4 H* Chloride 85 L Carbon Dioxide 11 L BUN 38 H Glucose 242 H POC Glucose (mg/dL) Plasma Lactic Acid Jem 3.6 H* ALT 73 H Urine Ketones Urine Blood Urine RBC Calcium Oxalate Crystal Amorphous Sediment Urine Bacteria Urine Mucus 05/02/21 05/02/21 05/02/21 10:54 11:20 13:50 WBC Neutrophils # Monocytes # Sodium Potassium 6.5 H* Chloride Carbon Dioxide BUN Glucose POC Glucose (mg/dL) Plasma Lactic Acid Jem 2.8 H* ALT Urine Ketones 1+ H Urine Blood Small H Urine RBC 21 H Calcium Oxalate Crystal Rare H Amorphous Sediment Rare H Urine Bacteria Rare H Urine Mucus Rare H 05/02/21 05/02/21 05/02/21 13:50 15:39 15:39 WBC Neutrophils # Monocytes # Sodium 115 L* Potassium 5.4 H Chloride 91 L Carbon Dioxide 13 L BUN 34 H Glucose 233 H POC Glucose (mg/dL) 342 H Plasma Lactic Acid Jem 2.8 H* ALT Urine Ketones Urine Blood Urine RBC Calcium Oxalate Crystal Amorphous Sediment Urine Bacteria Urine Mucus Assessment and Plan Assessment: Sepsis likely due to cellulitis around ileostomy, patient will be started on IV cefazolin gently being rehydrated Cellulitis around the tracheostomy anterior abdominal wall skin Severe and significant hyponatremia Intravascular volume depletion dehydration with prerenal acidemia Uncontrolled diabetes and hyperglycemia Plan: Overall plan includes gently rehydrate rehydrate the patient with normal saline aim to increase sodium less than 12 mEq a day Monitor labs closely Nephrology on consult for hyponatremia which appears to be hypovolemic IV cefazolin Sliding scale insulin I highly scale DVT and peptic ulcer disease prophylaxis Further plan of care as per clinical response of patient Time with Patient: Greater than 30
[2021-05-02] MEDS: FERROUS SULFATE 325 MG TAB PO SCH (17:52)
[2021-05-02] MEDS: LEVOFLOXACIN 500MG-D5W PMX 500 MG in DEXTROSE/WATER 1 100ML.BAG IVPB SCH (20:11)
[2021-05-02 20:23] LABS: Glucose,Whole Blood 290 mg/dL (75-99)
[2021-05-02] MEDS: INSULIN ASPART (NovoLOG) 100 UNIT/ML VIAL SQ SCH (20:34)
[2021-05-02] MEDS: METOPROLOL TARTRATE 25 MG TAB PO SCH (20:34)
[2021-05-02] MEDS: diazePAM 5 MG TAB PO SCH (20:35)
[2021-05-02] MEDS: MIRTAZAPINE 15 MG TAB PO SCH (20:35)
[2021-05-02 20:45] LABS: Potassium 5.9 mmol/L (3.5-5.1)
[2021-05-03] MEDS: SODIUM CHLORIDE 0.45% 1,000 ML with SODIUM BICARB (1 MEQ/ML) 100 ML IV SCH ×8 (00:10→23:45)
[2021-05-03] MEDS: Acetaminophen-Codeine 300-30mg TAB PO PRN ×3 (03:57→23:43)
[2021-05-03 05:04] LABS: Basophils # (A) 0.1 k/uL (0-0.2); Basophils % (A) 0 %; Eosinophils # (A) 0.2 k/uL (0-0.7); Eosinophils % (A) 1 %; HGB 13.5 gm/dL (13.0-17.5); Hyperchromasia Slight; Lymphocytes # (A) 0.8 k/uL (1.0-4.8); Lymphocytes % (A) 4 %; MCH 29.6 pg (25.0-35.0); MCHC 33.8 g/dL (31.0-37.0); MCV 87.6 fL (80.0-100.0); Mean Platelet Volume 9.3; Monocytes # (A) 0.9 k/uL (0-1.0); Monocytes % (A) 5 %; Neutrophils # (A) 17.7 k/uL (1.3-7.7); Neutrophils % (A) 90 %; RBC 4.56 m/uL (4.30-5.90); RDW 15.2 % (11.5-15.5); WBC 19.8 k/uL (3.8-10.6)
[2021-05-03 05:13] LABS: Platelet Count 85 k/uL (150-450)
[2021-05-03 05:16] LABS: ALT 62 U/L (4-49); AST 40 U/L (17-59); African American GFR (CKD) >90 (>60 ml/min/1.73 sqM); Albumin 2.9 g/dL (3.5-5.0); Alkaline Phosphatase 65 U/L (38-126); Anion Gap 9 mmol/L; Blood Urea Nitrogen 33 mg/dL (9-20); Calcium 8.3 mg/dL (8.4-10.2); Carbon Dioxide 12 mmol/L (22-30); Chloride 94 mmol/L (98-107); Glucose 196 mg/dL (74-99); Non-African American GFR(CKD) >90 (>60 ml/min/1.73 sqM); Potassium 5.6 mmol/L (3.5-5.1); Total Bilirubin 0.6 mg/dL (0.2-1.3); Total Protein 5.3 g/dL (6.3-8.2)
[2021-05-03 05:32] LABS: Sodium 115 mmol/L (137-145)
[2021-05-03 06:48] LABS: Glucose,Whole Blood 191 mg/dL (75-99)
[2021-05-03] MEDS: INSULIN ASPART (NovoLOG) 100 UNIT/ML VIAL SQ SCH ×4 (06:52→20:42)
[2021-05-03] MEDS: FERROUS SULFATE 325 MG TAB PO SCH ×2 (06:52→18:29)
--- NOTE | 2021-05-03 07:02 | XR ---
EXAMINATION TYPE: XR chest 1V portable DATE OF EXAM: 05/03/2021 HISTORY: Shortness of breath. COMPARISON: 05/02/2021 TECHNIQUE: Single view of the chest is submitted. FINDINGS: Demonstrated are scattered senescent parenchymal change. There is no evidence for focal infiltrate. The heart is stable. Pacer device is in place. Hilar and mediastinal structures are within normal limits. Degenerative changes are seen of the dorsal spine. IMPRESSION: 1. Chronic changes without evidence for acute pulmonary disease.
[2021-05-03] MEDS: PANTOPRAZOLE 40 MG/10 ML VIAL IV SCH (08:15)
[2021-05-03] MEDS: METOPROLOL TARTRATE 25 MG TAB PO SCH ×2 (08:16→20:42)
[2021-05-03] MEDS: allopurinoL 300 MG TAB PO SCH (08:16)
[2021-05-03] MEDS: DIGOXIN 125 MCG TAB PO SCH (08:16)
--- NOTE | 2021-05-03 08:40 | P.NPCON ---
History of Present Illness - Reason for Consult Consult date: 05/03/21 hyponatremia - Chief Complaint Severe hyponatremia - History of Present Illness This is a 62-year-old male with severe hyponatremia. Sodium was 112 on admission yesterday.. He was admitted with erythema around his ostomy site. He was brought into the emergency room by family members patient is a poor historian. Supposedly he was in a very unclean conditions when they found him. Since admission his been given initially saline, and then change last night to half-normal saline with 2 A of sodium bicarb running at 150 an hour. In spite of this sodium remains low at 115. The amount of output through the ostomy is unclear. Patient says he has lost his appetite. Supposedly there is history of dementia depression and diabetes mellitus. 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 History of Any Multi-Drug Resistant Organisms: None Reported Past Surgical History: AICD, Appendectomy, Back Surgery, Cholecystectomy, Heart Catheterization, Hernia Repair, Tonsillectomy Additional Past Surgical History / Comment(s): Ileostomy and a revision, BiV-ICD implanted in 2006 with gen change 2011, cardiac cath-normal, EGD/colonoscopies, cystoscopy, lithotripsies, bilateral ureteral stents, cervical fusion with plate, R inguinal hernia repair. Past Anesthesia/Blood Transfusion Reactions: No Reported Reaction Additional Past Anesthesia/Blood Transfusion Reaction / Comment(s): Limited ROM with neck. Type of Cardiac Device: AICD Device Placement Date:: 2006 Smoking Status: Never smoker - Past Family History Father Additional Family Medical History / Comment(s): Father of alcoholism. Mother Family Medical History: Hypertension Additional Family Medical History / Comment(s): Diverticular disease. Mother in her 80's. Medications and Allergies Home Medications Medication Instructions Recorded Confirmed Type Mirtazapine [Remeron] 45 mg PO DIRECTED 08/06/16 05/02/21 History allopurinoL [Zyloprim] 300 mg PO DIRECTED 08/06/16 05/02/21 History diazePAM [Valium] 5 mg PO DIRECTED 08/06/16 05/02/21 History Insuln Asp Prt/Insulin Aspart 1 dose SQ DIRECTED 02/21/18 05/02/21 History [NovoLOG MIX 70-30 VIAL] Digoxin [Lanoxin] 62.5 mcg PO DIRECTED 04/23/19 05/02/21 History Acetaminophen with Codeine 1 tab PO DIRECTED 05/02/21 05/02/21 History [Tylenol with Codeine #4 Tablet] Ferrous Sulfate [Feosol] 325 mg PO DIRECTED 05/02/21 05/02/21 History Metoprolol Tartrate [Lopressor] 50 mg PO DIRECTED 05/02/21 05/02/21 History Allergies Allergy/AdvReac Type Severity Reaction Status Date / Time Iodine and Iodide Containing Allergy Swelling Verified 05/02/21 13:38 Produc of Tongue Penicillins Allergy Rash/Hives Verified 05/02/21 13:38 Physical Exam Vitals: Vital Signs Temp Pulse Resp BP Pulse Ox 05/03/21 07:00 80 14 99/56 98 05/03/21 06:00 69 14 90/57 96 05/03/21 05:00 68 15 100/59 95 05/03/21 04:00 97.8 F 69 15 107/62 97 05/03/21 03:00 68 16 100/59 95 05/03/21 02:00 70 18 104/58 96 05/03/21 01:00 69 18 78/48 95 05/03/21 00:28 69 35 H 79/53 96 05/03/21 00:00 97.8 F 70 18 105/62 96 05/02/21 23:00 81 24 105/62 95 05/02/21 22:00 70 23 114/60 95 05/02/21 21:00 69 16 124/61 95 05/02/21 20:00 98.0 F 69 16 115/67 96 05/02/21 17:00 69 19 115/62 96 05/02/21 16:00 69 19 119/99 96 05/02/21 15:00 70 16 118/69 95 05/02/21 14:00 73 24 120/70 95 05/02/21 13:34 97.4 F L 69 18 126/70 98 05/02/21 11:50 72 18 116/68 100 05/02/21 09:59 98 F 72 18 125/63 98 Intake and Output 05/02/21 05/03/21 05/03/21 22:59 06:59 14:59 Intake Total 600 1670 160 Output Total 850 635 60 Balance -250 1035 100 Intake: IV 400 1670 160 0.9 300 620 10 Levofloxacin 500Mg-D5w 100 Pmx 500 mg In Dextrose/ Water 1 100ml.bag @ 100 mls/hr IVPB Q24H YOVANA Rx#: [id number] Sodium Chloride 0.45% 1, 1050 150 000 ml @ 150 mls/hr IV . Q7H20M YOVANA with Sodium Bicarb (1 Meq/ml) 100 ml Rx#:[id number] Intake, IV Titration 200 Amount Sodium Chloride 0.9% 1, 200 000 ml @ 999 mls/hr IV . Q1H1M STA Rx#:[id number] Output: Urine 850 635 60 Other: Voiding Method Indwelling Catheter Indwelling Catheter Weight 65.771 kg 82.7 kg Examination is awake alert seems to be oriented. HEENT exam no JVP neck is supple no facial asymmetry Lungs are clear to auscultation good air entry bilaterally Heart sounds unremarkable. Paced rhythm on the monitor Abdomen soft nontender ileostomy noted Extremity exam reveals trace edema Neurologically awake alert seems to be oriented Moves all EXTREMITIES but has generalized weakness Results - Lab Results Most recent lab results Calcium 8.3 mg/dL (8.4-10.2) L 05/03/21 04:40 Magnesium 1.9 mg/dL (1.6-2.3) 05/02/21 10:25 05/03/21 04:40 05/03/21 04:40 Assessment and Plan Assessment: Impression 1. Hyponatremia secondary to severe volume loss, from the ostomy and possibly reduced intake. Sodium on admission was 112 with hydration, it has come up to 115. TSH and serum cortisol are normal. Urine osmolality is 41 urine sodium not available 2. Severe hyperkalemia potassium was 7.4 and admission. Partially this is from high glucose which was 242 at the time but need to rule out other causes. Rule out obstruction, rhabdomyolysis, unlikely any internal bleeding as his hemoglobin stable 15.7 on admission and 13.5 this morning. Rule out this toxici ty 3. Severe metabolic acidosis with bicarb of 11 and gap of 16 secondary to GI losses. Rule out ketoacidosis 4. Atrial fibrillation with paced rhythm 5. History of depression and Alzheimer's 6. History of ulcerative colitis in the past with surgery Recommendation 1. Decrease the current IV half-normal saline with 2 A of bicarbonate to 200 mL an hour from 150 an hour. 2. Repeat labs in about 6 hours. 3. Obtain urine osmolality and urine sodium is 4. Check ultrasound of the kidneys. 5. Stat digoxin level Thank you for this consultation and we'll continue to follow
[2021-05-03 09:33] LABS: Digoxin <0.4 ng/mL
--- NOTE | 2021-05-03 10:22 | US ---
EXAMINATION TYPE: US kidneys/renal and bladder DATE OF EXAM: 05/03/2021 COMPARISON: CT 05/02/2021 CLINICAL HISTORY: hydronephrosis . EXAM MEASUREMENTS: Right Kidney: 11.3 x 5.9 x 5.8 cm Left Kidney: 11.8 x 7.1 x 5.7 cm Technically difficult study performed portably on ICU patient unable to cooperate for exam. Right Kidney: No hydronephrosis or masses seen Left Kidney: multiple echogenic areas with shadowing probably relate to calcified arteries. Bladder: unable to image, patient has catheter. There is no evidence for hydronephrosis at this point in time. No nephrolithiasis is seen. No dafne s are identified. IMPRESSION: Limited examination. Renal parenchymal thinning. Otherwise unremarkable study. Minimal vascular calci fications.
[2021-05-03] MEDS: ENOXAPARIN 30 MG/0.3 ML SYRINGE SQ SCH (12:34)
[2021-05-03 12:44] LABS: Glucose,Whole Blood 367 mg/dL (75-99)
[2021-05-03 17:23] LABS: Glucose,Whole Blood 283 mg/dL (75-99)
[2021-05-03 18:09] LABS: HCT 28.9 % (39.0-53.0); Hyperchromasia Moderate; MCH 31.3 pg (25.0-35.0); MCHC 36.3 g/dL (31.0-37.0); MCV 86.2 fL (80.0-100.0); Platelet Count 118 k/uL (150-450); RBC 3.35 m/uL (4.30-5.90); RDW 15.3 % (11.5-15.5); WBC 16.6 k/uL (3.8-10.6)
[2021-05-03] MEDS: LEVOFLOXACIN 500MG-D5W PMX 500 MG in DEXTROSE/WATER 1 100ML.BAG IVPB SCH (18:30)
[2021-05-03 20:39] LABS: Glucose,Whole Blood 263 mg/dL (75-99)
[2021-05-03] MEDS: diazePAM 5 MG TAB PO SCH (20:42)
[2021-05-03] MEDS: MIRTAZAPINE 15 MG TAB PO SCH (20:57)
[2021-05-04 05:39] LABS: African American GFR (CKD) >90 (>60 ml/min/1.73 sqM); Blood Urea Nitrogen 20 mg/dL (9-20); Carbon Dioxide 22 mmol/L (22-30); Glucose 140 mg/dL (74-99); Non-African American GFR(CKD) >90 (>60 ml/min/1.73 sqM)
[2021-05-04 05:41] LABS: Anion Gap 6 mmol/L; Chloride 91 mmol/L (98-107); Potassium 4.1 mmol/L (3.5-5.1)
[2021-05-04 05:45] LABS: Sodium 119 mmol/L (137-145)
[2021-05-04 06:04] LABS: HCT 36.7 % (39.0-53.0); HGB 13.2 gm/dL (13.0-17.5); Hyperchromasia Slight; MCH 31.4 pg (25.0-35.0); MCV 87.1 fL (80.0-100.0); Mean Platelet Volume 7.8; Platelet Count 111 k/uL (150-450); RBC 4.22 m/uL (4.30-5.90); RDW 15.4 % (11.5-15.5); WBC 16.2 k/uL (3.8-10.6)
[2021-05-04 06:23] LABS: Glucose,Whole Blood 173 mg/dL (75-99)
[2021-05-04] MEDS: FERROUS SULFATE 325 MG TAB PO SCH ×2 (06:26→18:43)
[2021-05-04] MEDS: INSULIN ASPART (NovoLOG) 100 UNIT/ML VIAL SQ SCH ×4 (06:26→21:26)
--- NOTE | 2021-05-04 08:06 | P.PN ---
Subjective Progress Note Date: 05/04/21 Principal diagnosis: This is a 62-year-old male with severe hyponatremia secondary to hypovolemia from decreased intake and colostomy output. Sodium was 112 on admission day before yesterday.. He was admitted with erythema around his ostomy site. He was brought into the emergency room by family members patient is a poor historian. Supposedly he was in a very unclean conditions when they found him. Since admission his been given initially saline, and then change to half-normal saline with 2 amp of sodium bicarb at 150 an hour. The sodium is improved to 119, bicarb is up to 22 His blood pressure remains low in the 80s to 130/59. Afebrile heart rate in the 70s. Intake is 4513 output is 1525, urine output is 1375 the rest is stools The amount of output through the ostomy is unclear. Patient says he has lost his appetite. Supposedly there is history of dementia depression and diabetes mellitus. His also known with atrial fibrillation paced rhythm DVT in the past Objective - Vital Signs Vital signs: Vital Signs Temp 97.7 F 05/04/21 04:00 Pulse 70 05/04/21 07:00 Resp 12 05/04/21 07:00 BP 108/53 05/04/21 07:00 Pulse Ox 100 05/04/21 07:00 Intake & Output 05/03/21 05/04/21 05/04/21 18:59 06:59 18:59 Intake Total 2618 1920 160 Output Total 535 990 60 Balance 2083 930 100 Weight 82.7 kg Intake: IV 1920 1920 160 0.9 120 120 10 Sodium Chloride 0.45% 1, 1800 1800 150 000 ml @ 150 mls/hr IV . Q7H20M YOVANA with Sodium Bicarb (1 Meq/ml) 100 ml Rx#:[id number] Oral 698 Output: Urine 535 840 60 Stool 150 Other: Voiding Method Indwelling Catheter Indwelling Catheter On examination is awake and alert and cooperative but seems to have difficulty hearing as well as understanding. HEENT exam no JVP neck is supple no facial asymmetry Lungs are clear to auscultation good air entry bilaterally Heart sounds are unremarkable for any murmur rub gallop Abdomen soft nontender he has a colostomy with the area around the colostomy with cellulitis and bleeding Exam reveals no edema Neurologically awake alert but seems to have some difficulty remembering and possibly has dementia - Labs CBC & Chem 7: 05/04/21 04:51 05/04/21 04:51 Labs: Abnormal Lab Results - Last 24 Hours (Table) 05/03/21 05/03/21 05/03/21 Range/Units 04:40 12:32 17:19 WBC 16.6 H (3.8-10.6) k/uL RBC 3.35 L (4.30-5.90) m/uL Hgb 10.5 L D (13.0-17.5) gm/dL Hct 28.9 L (39.0-53.0) % Plt Count 118 L (150-450) k/uL Sodium (137-145) mmol/L Chloride (98-107) mmol/L Creatinine (0.66-1.25) mg/dL Glucose (74-99) mg/dL POC Glucose (mg/dL) 367 H (75-99) mg/dL Hemoglobin A1c 7.4 H (4.0-6.0) % Calcium (8.4-10.2) mg/dL 05/03/21 05/03/21 05/04/21 Range/Units 17:21 20:37 04:51 WBC 16.2 H (3.8-10.6) k/uL RBC 4.22 L (4.30-5.90) m/uL Hgb (13.0-17.5) gm/dL Hct 36.7 L (39.0-53.0) % Plt Count 111 L (150-450) k/uL Sodium (137-145) mmol/L Chloride (98-107) mmol/L Creatinine (0.66-1.25) mg/dL Glucose (74-99) mg/dL POC Glucose (mg/dL) 283 H 263 H (75-99) mg/dL Hemoglobin A1c (4.0-6.0) % Calcium (8.4-10.2) mg/dL 05/04/21 05/04/21 Range/Units 04:51 06:22 WBC (3.8-10.6) k/uL RBC (4.30-5.90) m/uL Hgb (13.0-17.5) gm/dL Hct (39.0-53.0) % Plt Count (150-450) k/uL Sodium 119 L* (137-145) mmol/L Chloride 91 L (98-107) mmol/L Creatinine 0.49 L (0.66-1.25) mg/dL Glucose 140 H (74-99) mg/dL POC Glucose (mg/dL) 173 H (75-99) mg/dL Hemoglobin A1c (4.0-6.0) % Calcium 8.0 L (8.4-10.2) mg/dL Microbiology - Last 24 Hours (Table) 05/02/21 10:10 Blood Culture - Preliminary Blood No Growth after 24 hours Assessment and Plan Assessment: Impression 1. Hyponatremia secondary to severe volume loss, from the ostomy and possibly reduced intake. Sodium on admission was 112 with hydration, it has come up to 115 and further 219 this morning. TSH and serum cortisol are normal. Urine osmolality is 401 , subsequently was 529, urine sodium is less than 10 on 2 occasions 2. Severe hyperkalemia potassium was 7.4 and admission. Partially this is from high glucose which was 242 at the time but need to rule out other causes. Ultrasound of the kidney shows 11.3 and 1.8) less kidney no hydronephrosis. CK was ordered but not done to rule out rhabdomyolysis, unlikely any internal bleeding as his hemoglobin stable 15.7 on admission and 13.5 this morning. His oxygen level was less than 0.4 3. Severe metabolic acidosis with bicarb of 11 and gap of 16 secondary to GI losses. Ruled out ketoacidosis. Improved to 22 now 4. Atrial fibrillation with paced rhythm 5. History of depression and Alzheimer's 6. History of ulcerative colitis in the past with surgery Recommendation 1. continue IV fluids with bicarb at 150 an hour . 2. continue to monitor electrolytes once a day is adequate now Thank you for this consultation and we'll continue to follow
[2021-05-04] MEDS: ENOXAPARIN 30 MG/0.3 ML SYRINGE SQ SCH (08:42)
[2021-05-04] MEDS: SODIUM CHLORIDE 0.45% 1,000 ML with SODIUM BICARB (1 MEQ/ML) 100 ML IV SCH ×6 (09:12→20:30)
[2021-05-04] MEDS: METOPROLOL TARTRATE 25 MG TAB PO SCH ×2 (09:13→21:26)
[2021-05-04] MEDS: PANTOPRAZOLE 40 MG/10 ML VIAL IV SCH (09:13)
[2021-05-04] MEDS: allopurinoL 300 MG TAB PO SCH (09:13)
[2021-05-04] MEDS: DIGOXIN 125 MCG TAB PO SCH (09:13)
--- NOTE | 2021-05-04 10:23 | P.PN ---
Subjective Progress Note Date: 05/04/21 Principal diagnosis: Upper GI bleed Sepsis likely due to cellulitis around ileostomy, patient will be started on IV cefazolin gently being rehydrated Cellulitis around the tracheostomy anterior abdominal wall skin Severe and significant hyponatremia Intravascular volume depletion dehydration with prerenal acidemia Uncontrolled diabetes and hyperglycemia 05/04/2001, patient seen eval examined during the rounds labs reviewed medications reviewed care plan discussed with the staff and patient at length, respiratory status due to is stable, sodium is improving sleep, patient is now on bicarb drip patient is awake and alert, patient noted to have a bloody fecal material in the ileum last me back, general surgery has been consulted, hemoglobin however remains stable, patient remains on Protonix, labs reviewed white cell count is stable 16,000 with hemoglobin and hematocrit is 13 and 36, platelet count is 111 stabilize, sodium is up to 08/27/2019 and 0.49 and same medication shins Lovenox has been on hold now getting IV Levaquin ALLERGIES penicillin, Patient seen eval examined in ICU currently awake but cannot give him detailed history, lives by himself at home however family members noted erythematous redness around ostomy site, patient was in very disheveled condition with the concern of bed bugs unable to obtain detailed history, however patient has a history of extensive multiple abdominal surgery with absence of colon and presence of ileostomy, labs are significant for leukocytosis with WBC count 22,000, sodium was only 112, potassium 7.4, repeat was 6.5, BUN is 38, coated was negative chest x-ray unremarkable urinalysis was negative as well computed tomography scan of the abdominal and pelvis no acute process seen, blood cultures are been obtained, nephrology consultation obtained due to significant hyponatremia, patient had a liter of normal saline and Decadron, repeat labs revealed sodium 115 potassium 5.4. Crit 34.81, lactic acid 2.8, Past medical history significant for dementia Alzheimer's disease, mood disorder depression, gout, hypertension hypertensive cardiovascular disease, insulin requiring diabetes mellitus, Objective - Vital Signs Vital signs: Vital Signs Temp 96.7 F L 05/04/21 08:00 Pulse 70 05/04/21 07:00 Resp 16 05/04/21 08:00 BP 104/69 05/04/21 08:00 Pulse Ox 100 05/04/21 08:00 Intake & Output 05/03/21 05/04/21 05/04/21 18:59 06:59 18:59 Intake Total 261 1920 320 Output Total 535 990 260 Balance 2083 930 60 Weight 82.7 [place]: [place] [address] 320 0.9 120 120 20 Sodium Chloride 0.45% 1, 1800 1800 300 000 ml @ 150 mls/hr IV . Q7H20M YOVANA with Sodium Bicarb (1 Meq/ml) 100 ml Rx#:[id number] Oral 698 Output: Urine 535 840 260 Stool 150 Other: Voiding Method Indwelling Catheter Indwelling Catheter - Exam Alert and oriented x3, not in acute distress, malodorous, filthy HEENT: Normocephalic atraumatic, extra-ocular movements intact, pupils equal and reactive to light bilaterally, mucous membranes moist. Cardiovascular: Heart regular rate and rhythm Chest: Able to complete full sentences, no retractions, no tachypnea Abdomen: abdomen soft, non-tender, non-distended, no organomegaly, ostomy site to the left lower quadrant with surrounding erythema bloody stool in the bag Musculoskeletal: Pulses present and equal in all extremities, no peripheral edema Motor: no focal deficits noted Neurological: CN II-XII grossly intact, no focal motor or sensory deficits noted Skin: Intact with no visualized rashes, no decubitus ulcers Psych: Normal affect and mood - Labs CBC & Chem 7: 05/04/21 04:51 05/04/21 04:51 Labs: Abnormal Lab Results - Last 24 Hours (Table) 05/03/21 05/03/21 05/03/21 Range/Units 04:40 12:32 17:19 WBC 16.6 H (3.8-10.6) k/uL RBC 3.35 L (4.30-5.90) m/uL Hgb 10.5 L D (13.0-17.5) gm/dL Hct 28.9 L (39.0-53.0) % Plt Count 118 L (150-450) k/uL Sodium (137-145) mmol/L Chloride (98-107) mmol/L Creatinine (0.66-1.25) mg/dL Glucose (74-99) mg/dL POC Glucose (mg/dL) 367 H (75-99) mg/dL Hemoglobin A1c 7.4 H (4.0-6.0) % Calcium (8.4-10.2) mg/dL 05/03/21 05/03/21 05/04/21 Range/Units 17:21 20:37 04:51 WBC 16.2 H (3.8-10.6) k/uL RBC 4.22 L (4.30-5.90) m/uL Hgb (13.0-17.5) gm/dL Hct 36.7 L (39.0-53.0) % Plt Count 111 L (150-450) k/uL Sodium (137-145) mmol/L Chloride (98-107) mmol/L Creatinine (0.66-1.25) mg/dL Glucose (74-99) mg/dL POC Glucose (mg/dL) 283 H 263 H (75-99) mg/dL Hemoglobin A1c (4.0-6.0) % Calcium (8.4-10.2) mg/dL 05/04/21 05/04/21 Range/Units 04:51 06:22 WBC (3.8-10.6) k/uL RBC (4.30-5.90) m/uL Hgb (13.0-17.5) gm/dL Hct (39.0-53.0) % Plt Count (150-450) k/uL Sodium 119 L* (137-145) mmol/L Chloride 91 L (98-107) mmol/L Creatinine 0.49 L (0.66-1.25) mg/dL Glucose 140 H (74-99) mg/dL POC Glucose (mg/dL) 173 H (75-99) mg/dL Hemoglobin A1c (4.0-6.0) % Calcium 8.0 L (8.4-10.2) mg/dL Microbiology - Last 24 Hours (Table) 05/02/21 10:10 Blood Culture - Preliminary Blood No Growth after 24 hours Assessment and Plan Assessment: Upper GI bleed Sepsis likely due to cellulitis around ileostomy, patient will be started on IV cefazolin gently being rehydrated Cellulitis around the ileostomy anterior abdominal wall skin Severe and significant hyponatremia Intravascular volume depletion dehydration with prerenal Uncontrolled diabetes and hyperglycemia Plan: Overall plan includes gently rehydrate rehydrate the patient with normal saline aim to increase sodium less than 12 mEq a day Monitor labs closely Nephrology on consult for hyponatremia which appears to be hypovolemic IV cefazolin Sliding scale insulin I highly scale DVT and peptic ulcer disease prophylaxis Further plan of care as per clinical response of patient Time with Patient: Greater than 30
--- NOTE | 2021-05-04 11:03 | P.GSCN ---
History of Present Illness Consult date: 05/04/21 Reason for Consult: GI bleed History of present illness: 70-year-old male with history of ulcerative colitis. Patient appears to have had previous total abdominal colectomy with end ileostomy in the left midabdomen. Patient hospitalized for a variety of issues but in the ICU for hyponatremia. Yesterday patient was noted to have some blood in the ostomy bag. Hemoglobin has been stable. Denies abdominal pain. Tolerating diet. 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 History of Any Multi-Drug Resistant Organisms: None Reported Past Surgical History: AICD, Appendectomy, Back Surgery, Cholecystectomy, Heart Catheterization, Hernia Repair, Tonsillectomy Additional Past Surgical History / Comment(s): Ileostomy and a revision, BiV-ICD implanted in 2006 with gen change 2011, cardiac cath-normal, EGD/colonoscopies, cystoscopy, lithotripsies, bilateral ureteral stents, cervical fusion with plate, R inguinal hernia repair. Past Anesthesia/Blood Transfusion Reactions: No Reported Reaction Additional Past Anesthesia/Blood Transfusion Reaction / Comm: Limited ROM with neck. Type of Cardiac Device: AICD Device Placement Date:: 2006 Smoking Status: Never smoker - Past Family History Father Additional Family Medical History / Comment(s): Father of alcoholism. Mother Family Medical History: Hypertension Additional Family Medical History / Comment(s): Diverticular disease. Mother in her 80's. Medications and Allergies Home Medications Medication Instructions Recorded Confirmed Type Mirtazapine [Remeron] 45 mg PO DIRECTED 08/06/16 05/02/21 History allopurinoL [Zyloprim] 300 mg PO DIRECTED 08/06/16 05/02/21 History diazePAM [Valium] 5 mg PO DIRECTED 08/06/16 05/02/21 History Insuln Asp Prt/Insulin Aspart 1 dose SQ DIRECTED 02/21/18 05/02/21 History [NovoLOG MIX 70-30 VIAL] Digoxin [Lanoxin] 62.5 mcg PO DIRECTED 04/23/19 05/02/21 History Acetaminophen with Codeine 1 tab PO DIRECTED 05/02/21 05/02/21 History [Tylenol with Codeine #4 Tablet] Ferrous Sulfate [Feosol] 325 mg PO DIRECTED 05/02/21 05/02/21 History Metoprolol Tartrate [Lopressor] 50 mg PO DIRECTED 05/02/21 05/02/21 History Allergies Allergy/AdvReac Type Severity Reaction Status Date / Time Iodine and Iodide Containing Allergy Swelling Verified 05/02/21 13:38 Produc of Tongue Penicillins Allergy Rash/Hives Verified 05/02/21 13:38 Surgical - Exam Vital Signs Temp Pulse Resp BP Pulse Ox 98 F 72 18 125/63 98 05/02/21 09:59 05/02/21 09:59 05/02/21 09:59 05/02/21 09:59 05/02/21 09:59 Physical exam: General: Well-developed, well-nourished HEENT: Normocephalic, sclerae nonicteric Abdomen: Obese Nontender, nondistended, left-sided ileostomy with some blood in the bag, seems to be bilious stool also in the bag suspect bleeding from ostomy site itself Extremities: No edema Neuro: Alert and oriented Results - Labs 05/04/21 04:51 05/04/21 04:51 Abnormal Lab Results - Last 24 Hours (Table) 05/03/21 05/03/21 05/03/21 Range/Units 04:40 12:32 17:19 WBC 16.6 H (3.8-10.6) k/uL RBC 3.35 L (4.30-5.90) m/uL Hgb 10.5 L D (13.0-17.5) gm/dL Hct 28.9 L (39.0-53.0) % Plt Count 118 L (150-450) k/uL Sodium (137-145) mmol/L Chloride (98-107) mmol/L Creatinine (0.66-1.25) mg/dL Glucose (74-99) mg/dL POC Glucose (mg/dL) 367 H (75-99) mg/dL Hemoglobin A1c 7.4 H (4.0-6.0) % Calcium (8.4-10.2) mg/dL 05/03/21 05/03/21 05/04/21 Range/Units 17:21 20:37 04:51 WBC 16.2 H (3.8-10.6) k/uL RBC 4.22 L (4.30-5.90) m/uL Hgb (13.0-17.5) gm/dL Hct 36.7 L (39.0-53.0) % Plt Count 111 L (150-450) k/uL Sodium (137-145) mmol/L Chloride (98-107) mmol/L Creatinine (0.66-1.25) mg/dL Glucose (74-99) mg/dL POC Glucose (mg/dL) 283 H 263 H (75-99) mg/dL Hemoglobin A1c (4.0-6.0) % Calcium (8.4-10.2) mg/dL 05/04/21 05/04/21 Range/Units 04:51 06:22 WBC (3.8-10.6) k/uL RBC (4.30-5.90) m/uL Hgb (13.0-17.5) gm/dL Hct (39.0-53.0) % Plt Count (150-450) k/uL Sodium 119 L* (137-145) mmol/L Chloride 91 L (98-107) mmol/L Creatinine 0.49 L (0.66-1.25) mg/dL Glucose 140 H (74-99) mg/dL POC Glucose (mg/dL) 173 H (75-99) mg/dL Hemoglobin A1c (4.0-6.0) % Calcium 8.0 L (8.4-10.2) mg/dL Microbiology - Last 24 Hours (Table) 05/02/21 10:10 Blood Culture - Preliminary Blood No Growth after 24 hours Diabetes panel 05/03/21 05/04/21 Range/Units 04:40 04:51 Sodium 119 L* (137-145) mmol/L Potassium 4.1 (3.5-5.1) mmol/L Chloride 91 L (98-107) mmol/L Carbon Dioxide 22 (22-30) mmol/L BUN 20 (9-20) mg/dL Creatinine 0.49 L (0.66-1.25) mg/dL Glucose 140 H (74-99) mg/dL Hemoglobin A1c 7.4 H (4.0-6.0) % Calcium 8.0 L (8.4-10.2) mg/dL Calcium panel 05/04/21 Range/Units 04:51 Calcium 8.0 L (8.4-10.2) mg/dL Pituitary panel 05/04/21 Range/Units 04:51 Sodium 119 L* (137-145) mmol/L Potassium 4.1 (3.5-5.1) mmol/L Chloride 91 L (98-107) mmol/L Carbon Dioxide 22 (22-30) mmol/L BUN 20 (9-20) mg/dL Creatinine 0.49 L (0.66-1.25) mg/dL Glucose 140 H (74-99) mg/dL Calcium 8.0 L (8.4-10.2) mg/dL Adrenal panel 05/04/21 Range/Units 04:51 Sodium 119 L* (137-145) mmol/L Potassium 4.1 (3.5-5.1) mmol/L Chloride 91 L (98-107) mmol/L Carbon Dioxide 22 (22-30) mmol/L BUN 20 (9-20) mg/dL Creatinine 0.49 L (0.66-1.25) mg/dL Glucose 140 H (74-99) mg/dL Calcium 8.0 L (8.4-10.2) mg/dL Assessment and Plan (1) GI bleed Narrative/Plan: 70-year-old male with blood in his ostomy bag. I suspect irritation at the stoma site. We'll consult ostomy nurse to evaluate tomorrow. Continue to monitor bleeding today. Will follow. Current Visit: Yes Status: Acute Code(s): K92.2 - GASTROINTESTINAL HEMORRHAGE, UNSPECIFIED SNOMED Code(s): 63857076
[2021-05-04 11:36] LABS: Glucose,Whole Blood 216 mg/dL (75-99)
[2021-05-04 15:02] LABS: HGB 10.5 gm/dL (13.0-17.5)
[2021-05-04 17:52] LABS: Glucose,Whole Blood 241 mg/dL (75-99)
[2021-05-04] MEDS: LEVOFLOXACIN 500MG-D5W PMX 500 MG in DEXTROSE/WATER 1 100ML.BAG IVPB SCH (18:41)
[2021-05-04 20:54] LABS: Glucose,Whole Blood 218 mg/dL (75-99)
[2021-05-04] MEDS: MIRTAZAPINE 15 MG TAB PO SCH (21:26)
[2021-05-04] MEDS: diazePAM 5 MG TAB PO SCH ×2 (21:26→21:39)
[2021-05-04] MEDS ORDERED: diazePAM 5 MG TAB PO STA (21:38)
[2021-05-05] MEDS: SODIUM CHLORIDE 0.45% 1,000 ML with SODIUM BICARB (1 MEQ/ML) 100 ML IV SCH ×2 (02:10)
[2021-05-05 04:05] LABS: Basophils % (A) 0 %; Eosinophils % (A) 0 %; HCT 34.1 % (39.0-53.0); HGB 12.2 gm/dL (13.0-17.5); Lymphocytes # (A) 0.8 k/uL (1.0-4.8); Lymphocytes % (A) 6 %; MCHC 35.6 g/dL (31.0-37.0); MCV 89.7 fL (80.0-100.0); Mean Platelet Volume 7.9; Monocytes % (A) 7 %; Neutrophils # (A) 10.8 k/uL (1.3-7.7); Neutrophils % (A) 85 %; RDW 15.5 % (11.5-15.5); WBC 12.8 k/uL (3.8-10.6)
[2021-05-05 04:20] LABS: ALT 54 U/L (4-49); AST 40 U/L (17-59); African American GFR (CKD) >90 (>60 ml/min/1.73 sqM); Albumin 2.5 g/dL (3.5-5.0); Alkaline Phosphatase 76 U/L (38-126); Anion Gap 6 mmol/L; Blood Urea Nitrogen 15 mg/dL (9-20); Calcium 7.8 mg/dL (8.4-10.2); Carbon Dioxide 27 mmol/L (22-30); Chloride 88 mmol/L (98-107); Glucose 151 mg/dL (74-99); Non-African American GFR(CKD) >90 (>60 ml/min/1.73 sqM); Potassium 3.9 mmol/L (3.5-5.1); Sodium 121 mmol/L (137-145); Total Bilirubin 0.5 mg/dL (0.2-1.3); Total Protein 4.8 g/dL (6.3-8.2)
[2021-05-05 04:25] LABS: Platelet Count 114 k/uL (150-450)
--- NOTE | 2021-05-05 08:40 | P.PN ---
Subjective A shunt is seen in follow-up for hyponatremia. Sodium level 121 this morning. Oral intake is poor but he is drinking Glucerna. Maintained on half-normal saline with 1 amp of bicarbonate running at 1 50 mL an hour. Not a reliable historian. Vital signs are stable. General: The patient appeared well nourished and normally developed. HEENT: Head exam is unremarkable. LUNGS: Breath sounds decreased. HEART: Rate and Rhythm are regular. ABDOMEN: Soft, no distention. EXTREMITITES: No edema. Objective - Vital Signs Vital signs: Vital Signs Temp 97.6 F 05/05/21 00:00 Pulse 74 05/05/21 05:00 Resp 12 05/05/21 05:00 BP 110/59 05/05/21 05:00 Pulse Ox 100 05/05/21 05:00 Intake & Output 05/04/21 05/05/21 05/05/21 18:59 06:59 18:59 Intake Total 2608 1480 Output Total 575 650 Balance 2033 830 Weight 82.4 kg 82.2 kg Intake: IV 1920 1280 0.9 120 80 Sodium Chloride 0.45% 1, 1800 1200 000 ml @ 150 mls/hr IV . Q7H20M YOVANA with Sodium Bicarb (1 Meq/ml) 100 ml Rx#:[id number] Oral 688 200 Output: Urine 575 350 Stool 300 Other: Voiding Method Indwelling Catheter Indwelling Catheter - Labs CBC & Chem 7: 05/05/21 03:35 05/05/21 03:35 Labs: Abnormal Lab Results - Last 24 Hours (Table) 05/03/21 05/04/21 05/04/21 Range/Units 17:19 11:35 17:50 WBC (3.8-10.6) k/uL RBC (4.30-5.90) m/uL Hgb 10.5 L D (13.0-17.5) gm/dL Hct (39.0-53.0) % Plt Count (150-450) k/uL Neutrophils # (1.3-7.7) k/uL Lymphocytes # (1.0-4.8) k/uL Sodium (137-145) mmol/L Chloride (98-107) mmol/L Creatinine (0.66-1.25) mg/dL Glucose (74-99) mg/dL POC Glucose (mg/dL) 216 H 241 H (75-99) mg/dL Calcium (8.4-10.2) mg/dL ALT (4-49) U/L Total Protein (6.3-8.2) g/dL Albumin (3.5-5.0) g/dL 05/04/21 05/05/21 05/05/21 Range/Units 20:52 03:35 03:35 WBC 12.8 H (3.8-10.6) k/uL RBC 3.80 L (4.30-5.90) m/uL Hgb 12.2 L (13.0-17.5) gm/dL Hct 34.1 L (39.0-53.0) % Plt Count 114 L (150-450) k/uL Neutrophils # 10.8 H (1.3-7.7) k/uL Lymphocytes # 0.8 L (1.0-4.8) k/uL Sodium 121 L (137-145) mmol/L Chloride 88 L (98-107) mmol/L Creatinine 0.42 L (0.66-1.25) mg/dL Glucose 151 H (74-99) mg/dL POC Glucose (mg/dL) 218 H (75-99) mg/dL Calcium 7.8 L (8.4-10.2) mg/dL ALT 54 H (4-49) U/L Total Protein 4.8 L (6.3-8.2) g/dL Albumin 2.5 L (3.5-5.0) g/dL Microbiology - Last 24 Hours (Table) 05/02/21 10:10 Blood Culture - Preliminary Blood No Growth after 48 hours Assessment and Plan Plan: Assessment: 1. Hypovolemic hyponatremia improving with IV hydration. Also component of poor solute intake. Sodium level 121 this morning. Urine osmolality 401 and on repeat 529. Urine sodium less than 10. TSH and serum cortisol normal. 2. Hyperkalemia on admission. Now resolved. 3. Metabolic acidosis secondary to GI losses. Resolved. 4. History of ulcerative colitis. Has a colostomy. Plan: 1200 mL free water restriction. Encouraged oral intake. Add ensure. Change IV fluids to normal saline at 75 mL an hour. Add sodium chloride tabs. Repeat sodium level this afternoon.
[2021-05-05] MEDS: FERROUS SULFATE 325 MG TAB PO SCH ×2 (10:28→16:55)
[2021-05-05] MEDS: PANTOPRAZOLE 40 MG/10 ML VIAL IV SCH (10:28)
[2021-05-05] MEDS: INSULIN ASPART (NovoLOG) 100 UNIT/ML VIAL SQ SCH ×4 (10:28→20:53)
[2021-05-05] MEDS: ENOXAPARIN 30 MG/0.3 ML SYRINGE SQ SCH (10:29)
[2021-05-05] MEDS: SODIUM CHLORIDE TAB 1 GM TAB PO SCH ×2 (10:29→23:37)
[2021-05-05] MEDS: allopurinoL 300 MG TAB PO SCH (10:29)
[2021-05-05] MEDS: METOPROLOL TARTRATE 25 MG TAB PO SCH ×2 (10:29→20:54)
[2021-05-05] MEDS: SODIUM CHLORIDE 0.9% 1,000 ML IV SCH (10:31)
[2021-05-05 12:36] LABS: Glucose,Whole Blood 157 mg/dL (75-99)
[2021-05-05] MEDS: DIGOXIN 125 MCG TAB PO SCH (12:53)
--- NOTE | 2021-05-05 14:33 | P.PN ---
Subjective Progress Note Date: 05/05/21 CHIEF COMPLAINT: GI bleed HISTORY OF PRESENT ILLNESS: Patient has history of ulcerative colitis and previ ous total abdominal colectomy with end ileostomy. He is hospitalized and in the ICU for hyponatremia. Surgery is following because there was some blood reported in his ostomy bag which has improved. Patient has brown stool noted in the ostomy bag at this time. Patient is scheduled to be seen by ostomy nurse due to possible skin irritation at the stoma site. Afebrile WBC 12.8 hemoglobin 13.2 down to 12.2 sodium 121 potassium 3. Patient seen and examined with Dr. Ratliff who is covering for Dr. Ojeda PHYSICAL EXAM: VITAL SIGNS: Reviewed. GENERAL: Well-developed in no acute distress. HEENT: No sclera icterus. Extraocular movements grossly intact. Moist buccal mucosa. Head is atraumatic, normocephalic. ABDOMEN: Soft. Nondistended. Nontender. Ostomy with brown stool. No evidence of bleeding NEUROLOGIC: Alert and oriented. Cranial nerves II through XII grossly intact. ASSESSMENT: 1. GI Bleeding is likely secondary to irritation at the stoma site PLAN: -Consult placed for ostomy nurse -Continue to monitor for any bleeding -Continue supportive care and ICU management Physician Lime Slaker note has been reviewed by physician. Signing provider agrees with the documented findings, assessment, and plan of care. Objective - Vital Signs Vital signs: Vital Signs Temp 97.9 F 05/05/21 12:00 Pulse 70 05/05/21 12:00 Resp 13 05/05/21 12:00 BP 108/53 05/05/21 12:00 Pulse Ox 98 05/05/21 12:00 Intake & Output 05/04/21 05/05/21 05/05/21 18:59 06:59 18:59 Intake Total 2608 1480 1218 Output Total 575 650 500 Balance 2033 830 718 Weight 82.4 kg 82.2 kg Intake: IV 1920 1280 980 0.9 120 80 80 Sodium Chloride 0.45% 1, 1800 1200 900 000 ml @ 150 mls/hr IV . Q7H20M YOVANA with Sodium Bicarb (1 Meq/ml) 100 ml Rx#:[id number] Oral 688 200 238 Output: Urine 575 350 500 Stool 300 Other: Voiding Method Indwelling Catheter Indwelling Catheter Indwelling Catheter - Labs CBC & Chem 7: 05/05/21 03:35 05/05/21 03:35 Labs: Abnormal Lab Results - Last 24 Hours (Table) 05/03/21 05/04/21 05/04/21 Range/Units 17:19 17:50 20:52 WBC (3.8-10.6) k/uL RBC (4.30-5.90) m/uL Hgb 10.5 L D (13.0-17.5) gm/dL Hct (39.0-53.0) % Plt Count (150-450) k/uL Neutrophils # (1.3-7.7) k/uL Lymphocytes # (1.0-4.8) k/uL Sodium (137-145) mmol/L Chloride (98-107) mmol/L Creatinine (0.66-1.25) mg/dL Glucose (74-99) mg/dL POC Glucose (mg/dL) 241 H 218 H (75-99) mg/dL Calcium (8.4-10.2) mg/dL ALT (4-49) U/L Total Protein (6.3-8.2) g/dL Albumin (3.5-5.0) g/dL 05/05/21 05/05/21 05/05/21 Range/Units 03:35 03:35 12:33 WBC 12.8 H (3.8-10.6) k/uL RBC 3.80 L (4.30-5.90) m/uL Hgb 12.2 L (13.0-17.5) gm/dL Hct 34.1 L (39.0-53.0) % Plt Count 114 L (150-450) k/uL Neutrophils # 10.8 H (1.3-7.7) k/uL Lymphocytes # 0.8 L (1.0-4.8) k/uL Sodium 121 L (137-145) mmol/L Chloride 88 L (98-107) mmol/L Creatinine 0.42 L (0.66-1.25) mg/dL Glucose 151 H (74-99) mg/dL POC Glucose (mg/dL) 157 H (75-99) mg/dL Calcium 7.8 L (8.4-10.2) mg/dL ALT 54 H (4-49) U/L Total Protein 4.8 L (6.3-8.2) g/dL Albumin 2.5 L (3.5-5.0) g/dL Microbiology - Last 24 Hours (Table) 05/02/21 10:10 Blood Culture - Preliminary Blood No Growth after 72 hours
[2021-05-05 16:34] LABS: Glucose,Whole Blood 170 mg/dL (75-99)
[2021-05-05] MEDS: LEVOFLOXACIN 500MG-D5W PMX 500 MG in DEXTROSE/WATER 1 100ML.BAG IVPB SCH (16:55)
[2021-05-05 19:41] LABS: Glucose,Whole Blood 179 mg/dL (75-99)
[2021-05-05] MEDS: diazePAM 5 MG TAB PO SCH (20:54)
[2021-05-05] MEDS: MIRTAZAPINE 15 MG TAB PO SCH (20:55)
[2021-05-05] MEDS: Acetaminophen-Codeine 300-30mg TAB PO PRN (23:37)
[2021-05-06] MEDS: SODIUM CHLORIDE TAB 1 GM TAB PO SCH ×3 (00:38→22:01)
[2021-05-06 06:25] LABS: Glucose,Whole Blood 162 mg/dL (75-99)
[2021-05-06] MEDS: INSULIN ASPART (NovoLOG) 100 UNIT/ML VIAL SQ SCH ×4 (06:48→22:01)
[2021-05-06] MEDS: DIGOXIN 125 MCG TAB PO SCH (08:45)
[2021-05-06] MEDS: allopurinoL 300 MG TAB PO SCH (08:45)
[2021-05-06] MEDS: METOPROLOL TARTRATE 25 MG TAB PO SCH ×2 (08:45→22:06)
[2021-05-06] MEDS: ENOXAPARIN 30 MG/0.3 ML SYRINGE SQ SCH (08:45)
[2021-05-06 09:18] LABS: HCT 33.4 % (39.0-53.0); HGB 11.7 gm/dL (13.0-17.5); MCH 31.6 pg (25.0-35.0); MCV 90.3 fL (80.0-100.0); Mean Platelet Volume 7.8; Platelet Count 104 k/uL (150-450); RDW 15.7 % (11.5-15.5); WBC 10.6 k/uL (3.8-10.6)
--- NOTE | 2021-05-06 09:36 | P.PN ---
Subjective A shunt is seen in follow-up for hyponatremia. Sodium level 123 as of yesterday afternoon. Morning labs pending. Oral intake remains poor. Did not receive IV fluids last night and also did not take all his medications. Not a reliable historian. Vital signs are stable. General: The patient appeared well nourished and normally developed. HEENT: Head exam is unremarkable. LUNGS: Breath sounds decreased. HEART: Rate and Rhythm are regular. ABDOMEN: Soft, no distention. EXTREMITITES: No edema. Objective - Vital Signs Vital signs: Vital Signs Temp 98.7 F 05/06/21 08:38 Pulse 72 05/06/21 08:38 Resp 16 05/06/21 08:38 BP 110/62 05/06/21 08:38 Pulse Ox 97 05/06/21 08:38 Intake & Output 05/05/21 05/06/21 05/06/21 18:59 06:59 18:59 Intake Total 1758 Output Total 500 275 Balance 1258 -275 Weight 83.5 kg Intake: IV 980 0.9 80 Sodium Chloride 0.45% 1, 900 000 ml @ 150 mls/hr IV . Q7H20M YOVANA with Sodium Bicarb (1 Meq/ml) 100 ml Rx#:[id number] Oral 778 Output: Urine 500 225 Stool 50 Other: Voiding Method Indwelling Catheter Indwelling Catheter Indwelling Catheter - Labs CBC & Chem 7: 05/06/21 09:00 05/05/21 16:09 Labs: Abnormal Lab Results - Last 24 Hours (Table) 05/05/21 05/05/21 05/05/21 Range/Units 12:33 16:09 16:33 RBC (4.30-5.90) m/uL Hgb (13.0-17.5) gm/dL Hct (39.0-53.0) % RDW (11.5-15.5) % Plt Count (150-450) k/uL Sodium 123 L (137-145) mmol/L POC Glucose (mg/dL) 157 H 170 H (75-99) mg/dL 05/05/21 05/06/21 05/06/21 Range/Units 19:39 06:23 09:00 RBC 3.70 L (4.30-5.90) m/uL Hgb 11.7 L (13.0-17.5) gm/dL Hct 33.4 L (39.0-53.0) % RDW 15.7 H (11.5-15.5) % Plt Count 104 L (150-450) k/uL Sodium (137-145) mmol/L POC Glucose (mg/dL) 179 H 162 H (75-99) mg/dL Microbiology - Last 24 Hours (Table) 05/02/21 10:10 Blood Culture - Preliminary Blood No Growth after 72 hours Assessment and Plan Plan: Assessment: 1. Hypovolemic hyponatremia improving with IV hydration. Also component of poor solute intake. Sodium level 123 yesterday afternoon. Urine osmolality 401 and on repeat 529. Urine sodium less than 10. TSH and serum cortisol normal. 2. Hyperkalemia on admission. Now resolved. 3. Metabolic acidosis secondary to GI losses. Resolved. 4. History of ulcerative colitis. Has a colostomy. Plan: 1200 mL free water restriction. Encouraged oral intake. Added ensure. IV fluids will be resumed once he has an IV access. Maintain sodium chloride tabs. Morning labs pending.
[2021-05-06 09:43] LABS: African American GFR (CKD) >90 (>60 ml/min/1.73 sqM); Anion Gap 4 mmol/L; Blood Urea Nitrogen 12 mg/dL (9-20); Calcium 7.9 mg/dL (8.4-10.2); Carbon Dioxide 27 mmol/L (22-30); Chloride 93 mmol/L (98-107); Glucose 193 mg/dL (74-99); Non-African American GFR(CKD) >90 (>60 ml/min/1.73 sqM); Sodium 124 mmol/L (137-145)
[2021-05-06 10:09] LABS: Potassium 3.7 mmol/L (3.5-5.1)
[2021-05-06] MEDS ORDERED: SILVER NITRATE APPLICATOR 1 EACH STICK..EA. TOPICAL STA (11:44)
--- NOTE | 2021-05-06 11:53 | P.PN ---
<Phillip,Renee - Last Filed: 05/06/21 11:41> Subjective Progress Note Date: 05/06/21 CHIEF COMPLAINT: GI bleed HISTORY OF PRESENT ILLNESS: This a patient with a history of ulcerative colitis and previous total abdominal colectomy with end ileostomy. He was initially hospitalized in the ICU for hyponatremia and was transferred to selective unit yesterday. Surgery was consulted because he had some blood ported and his ostomy bag. He is seen and evaluated today with brown stool noted in his o stomy. There is no reported blood through the night. Patient awaiting to be seen by ostomy nurse. He remains afebrile. Hemoglobin is stable at 11.7, sodium 124 potassium 3.7. Nephrology is following patient closely for hyponatremia PHYSICAL EXAM: VITAL SIGNS: Reviewed. GENERAL: Well-developed in no acute distress. HEENT: No sclera icterus. Extraocular movements grossly intact. Moist buccal mucosa. Head is atraumatic, normocephalic. ABDOMEN: Soft. Nondistended. Nontender. Ostomy with brown stool. No evidence of bleeding. Mild erythema and dry skin surrounding ostomy. NEUROLOGIC: Alert and oriented. Cranial nerves II through XII grossly intact. ASSESSMENT: 1. GI bleed likely secondary to irritation at the stoma site PLAN: -Consult to ostomy nurse -Continue to monitor for any signs of GI bleed The impression and plan of care has been dictated as directed. I performed a history and examination of this patient, discussed the same with the dictator. I agree with the dictator's note ,documented as a scribe. Any additional findings or plans will be noted. Objective - Vital Signs Vital signs: Vital Signs Temp 98.7 F 05/06/21 08:38 Pulse 72 05/06/21 08:38 Resp 16 05/06/21 08:38 BP 110/62 05/06/21 08:38 Pulse Ox 97 05/06/21 08:38 Intake & Output 05/05/21 05/06/21 05/06/21 18:59 06:59 18:59 Intake Total 1758 Output Total 500 275 Balance 1258 -275 Weight 83.5 kg Intake: IV 980 0.9 80 Sodium Chloride 0.45% 1, 900 000 ml @ 150 mls/hr IV . Q7H20M YOVANA with Sodium Bicarb (1 Meq/ml) 100 ml Rx#:[id number] Oral 778 Output: Urine 500 225 Stool 50 Other: Voiding Method Indwelling Catheter Indwelling Catheter Indwelling Catheter - Labs CBC & Chem 7: 05/06/21 09:00 05/06/21 09:00 Labs: Abnormal Lab Results - Last 24 Hours (Table) 05/05/21 05/05/21 05/05/21 Range/Units 12:33 16:09 16:33 RBC (4.30-5.90) m/uL Hgb (13.0-17.5) gm/dL Hct (39.0-53.0) % RDW (11.5-15.5) % Plt Count (150-450) k/uL Sodium 123 L (137-145) mmol/L Chloride (98-107) mmol/L Creatinine (0.66-1.25) mg/dL Glucose (74-99) mg/dL POC Glucose (mg/dL) 157 H 170 H (75-99) mg/dL Calcium (8.4-10.2) mg/dL 05/05/21 05/06/21 05/06/21 Range/Units 19:39 06:23 09:00 RBC 3.70 L (4.30-5.90) m/uL Hgb 11.7 L (13.0-17.5) gm/dL Hct 33.4 L (39.0-53.0) % RDW 15.7 H (11.5-15.5) % Plt Count 104 L (150-450) k/uL Sodium (137-145) mmol/L Chloride (98-107) mmol/L Creatinine (0.66-1.25) mg/dL Glucose (74-99) mg/dL POC Glucose (mg/dL) 179 H 162 H (75-99) mg/dL Calcium (8.4-10.2) mg/dL 05/06/21 Range/Units 09:00 RBC (4.30-5.90) m/uL Hgb (13.0-17.5) gm/dL Hct (39.0-53.0) % RDW (11.5-15.5) % Plt Count (150-450) k/uL Sodium 124 L (137-145) mmol/L Chloride 93 L (98-107) mmol/L Creatinine 0.45 L (0.66-1.25) mg/dL Glucose 193 H (74-99) mg/dL POC Glucose (mg/dL) (75-99) mg/dL Calcium 7.9 L (8.4-10.2) mg/dL Microbiology - Last 24 Hours (Table) 05/02/21 10:10 Blood Culture - Preliminary Blood No Growth after 72 hours <David Ojeda - Last Filed: 05/07/21 14:06> Subjective As above. Patient with bleeding from granulation tissue around the ostomy site. Bleeding yesterday was controlled using silver nitrate and pressure. Continue local care around the ostomy. Objective - Vital Signs Vital signs: Vital Signs Temp 98.2 F 05/07/21 07:50 Pulse 76 05/07/21 07:50 Resp 18 05/07/21 07:50 BP 126/72 05/07/21 07:50 Pulse Ox 97 05/07/21 07:50 Intake & Output 05/06/21 05/07/21 05/07/21 18:59 06:59 18:59 Intake Total 900 Output Total 500 350 Balance -500 550 Weight 83.5 kg Intake: IV 900 0.9 900 Output: Urine 300 350 Stool 200 Other: Voiding Method Indwelling Catheter Indwelling Catheter Indwelling Catheter - Labs CBC & Chem 7: 05/07/21 07:32 05/07/21 07:32 Labs: Abnormal Lab Results - Last 24 Hours (Table) 05/06/21 05/06/21 05/06/21 Range/Units 16:31 16:54 20:10 RBC (4.30-5.90) m/uL Hgb (13.0-17.5) gm/dL Hct (39.0-53.0) % RDW (11.5-15.5) % Plt Count (150-450) k/uL Lymphocytes # (1.0-4.8) k/uL Sodium 125 L (137-145) mmol/L Chloride (98-107) mmol/L Creatinine (0.66-1.25) mg/dL Glucose (74-99) mg/dL POC Glucose (mg/dL) 177 H 210 H (75-99) mg/dL Calcium (8.4-10.2) mg/dL Total Protein (6.3-8.2) g/dL Albumin (3.5-5.0) g/dL 05/07/21 05/07/21 05/07/21 Range/Units 06:02 07:32 07:32 RBC 3.36 L (4.30-5.90) m/uL Hgb 10.5 L (13.0-17.5) gm/dL Hct 29.9 L (39.0-53.0) % RDW 16.4 H (11.5-15.5) % Plt Count 111 L (150-450) k/uL Lymphocytes # 0.7 L (1.0-4.8) k/uL Sodium 127 L (137-145) mmol/L Chloride 97 L (98-107) mmol/L Creatinine 0.43 L (0.66-1.25) mg/dL Glucose 154 H (74-99) mg/dL POC Glucose (mg/dL) 178 H (75-99) mg/dL Calcium 7.7 L (8.4-10.2) mg/dL Total Protein 4.0 L (6.3-8.2) g/dL Albumin 2.0 L (3.5-5.0) g/dL 05/07/21 Range/Units 11:32 RBC (4.30-5.90) m/uL Hgb (13.0-17.5) gm/dL Hct (39.0-53.0) % RDW (11.5-15.5) % Plt Count (150-450) k/uL Lymphocytes # (1.0-4.8) k/uL Sodium (137-145) mmol/L Chloride (98-107) mmol/L Creatinine (0.66-1.25) mg/dL Glucose (74-99) mg/dL POC Glucose (mg/dL) 166 H (75-99) mg/dL Calcium (8.4-10.2) mg/dL Total Protein (6.3-8.2) g/dL Albumin (3.5-5.0) g/dL Microbiology - Last 24 Hours (Table) 05/02/21 10:10 Blood Culture - Preliminary Blood No Growth after 120 hours Assessment and Plan (1) GI bleed Current Visit: Yes Status: Acute Code(s): K92.2 - GASTROINTESTINAL HEMOR RHAGE, UNSPECIFIED SNOMED Code(s): 85422483
[2021-05-06 12:05] LABS: Glucose,Whole Blood 211 mg/dL (75-99)
[2021-05-06] MEDS: FERROUS SULFATE 325 MG TAB PO SCH ×2 (12:23→17:15)
[2021-05-06] MEDS: PANTOPRAZOLE 40 MG/10 ML VIAL IV SCH (12:23)
--- NOTE | 2021-05-06 13:22 | P.CN ---
Psychiatric Consult - . Consult date: 05/06/21 Consult:: 05/06/21 12:40 IDENTIFYING DATA: This patient is a 70-year-old male with a history of multiple medical comorbidities and an ostomy and history of depression. REASON FOR REFERRAL: Psychiatry was consulted for signs of depression including flat affect. HISTORY OF PRESENT ILLNESS: The patient presented to the hospital on 05/02 for apparent redness around his ostomy. Patient was a poor historian and had poor hygiene and grooming. Apparently his home living environment was not well taking care of. Patient had altered mental status at that time. He was admitted to the medical floors for failure to thrive and hyponatremia. He has been having poor oral intake. Patient's nurse claims that patient has been mainly withdrawn and have a flat affect. Patient was seen at the bedside and was sleeping and was awoken by rfp writer. He appeared to be awake however it a difficult time communicating with rfp writer. He followed minimal commands and was a poor historian. He denied any depression or anxiety at this time. He was de nying any suicidal thoughts. He appears to have chronically poor insight into his condition. He had fair attention span . At this time patient denies any suicidal or homical ideations, intent or plan. Patient denies any auditory, visual hallucinations. Patients admits to using no recreational drugs Due to patient's poor mental status and historian, limited social history and psychiatric history was obtained PAST PSYCHIATRIC HISTORY: Patient has a a history of depression and anxiety. Patient was previously on Remeron and Valium. 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 ALLERGIES: as per EMR. CHEMICAL DEPENDENCY HISTORY: as per HPI. FAMILY PSYCHIATRIC/SUBSTANCE USE HISTORY: Unable to assess SOCIAL HISTORY: Unable to assess. MENTAL STATUS EXAM: General Appearance: Patient appears to be stated age is alert, attempts to cooperate. Patient appears to have poor/troubled hygiene and grooming wearing hospital gown with fair eye contact. Behavior: Patient is calmly lying in bed without any agitated behavior. Speech: Patient's speech is nonpressured. [place]. Mood/Affect: Patient reports their mood is "ok", affect is congruent and constricted Suicidality/Homicidality: Patient denies having any suicidal or homicidal ideation intent or plan. Perceptions: Patient denies any visual hallucinations and denies any auditory hallucinations Though content/process: Poverty of content, concrete. Memory and concentration: AOX1-2, grossly intact for the purposes of this session. Cannot spell "WORLD" backwards Judgment and insight: poor IMPRESSIONS: Depressive disorder unspecified Failure to thrive PLAN: -At this time patient DOES NOT meet criteria for inpatient psychiatric admission. -Patient DOES NOT have decision making capacity at this time and is unable to reason through and communicate/appreciate the risks, benefits and alternatives to treatment. -Delirium precautions recommended with patient including - avoiding use of narcotics and MACHINE CAPTAIN sedatives, limit anticholinergic medications when possible, frequent re-orientation, minimize use of restraints, open window shades during the day and close them at night -Would recommend the following medication changes/additions: Continue with Remeron 45 mg daily at bedtime for mood/insomnia/appetite. Added Prozac 20 mg daily for mood/anxiety. Added melatonin 3 mg daily at bedtime for sleep. discontinued Valium -mill worker to provide patient with outpatient mental health/psychiatry resources for appropriate follow up upon discharge -mill worker to work with patient's family and patient on placement as he cannot care for himself. -Communicated plan to patient's nurse -Will continue to follow along -Please contact with any questions. 05/06/21 13:15 05/06/21 13:21
--- NOTE | 2021-05-06 13:49 | HP ---
HISTORY AND PHYSICAL This patient is a 70-year-old white male who presents to the emergency room. He lives by himself. He noted some erythema and redness around the ostomy site, dishevelled, concerned about bedbugs and the ability to take care of himself at home. He has had multiple abdominal surgeries, history of colitis, ileostomy. He has severe leukocytosis at 22,000 legs are severely infected and gently debrided. Potassium is high at 7.4, repeat was 6.5, BUN 38. Chest x-ray is negative. Urinalysis is negative. CT of the abdomen and pelvis was negative. Blood cultures are severe infected legs and gangrene to the legs. Lactic acid 2.8, potassium 5.4. He has a history of dementia, Alzheimer's, depression, hypertensive cardiovascular disease, diabetes mellitus. Fourteen-point review of systems negative, as he does not really talk. He just murmurs and gives yes and no answers. PAST MEDICAL HISTORY: Atrial fibrillation, heart failure, diabetes mellitus, DVTs, hypertension, renal disease, nonischemic cardiomyopathy, type 2 diabetes mellitus, prior ileostomy, diverticulitis, colitis, ulcerative colitis in the past, GI bleed, arm weakness, nephrolithiasis, sepsis from kidney stones x2, bilateral cataract surgery, AICD, appendectomy, back surgery, cholecystectomy, heart catheterization, hernia repair, tonsillectomy, ileostomy with revision 2011, history of ureteral stents, history of anxiety, depression, panic disorder. FAMILY HISTORY: Father with alcoholism. Mother with hypertension. HOME MEDICINES: Not sure he taking medications. ALLERGIES: PENICILLIN. Temperature 97 to 98, pulse 60s to 70s, respiratory rate 18-22, blood pressure is 118 to 120s over 60s to 70s. CARDIOVASCULAR: S1, S2. Regular rate and rhythm. Lungs are clear. MUSCULOSKELETAL: Range of motion. NEUROLOGIC: Cranial nerves are intact. SKIN: Warm, dry, intact. His right foot looks extremely scaly with some gangrenous- looking lesions and severe scaliness with brown discoloration of the lower right extremity. NEUROLOGIC: Alert and oriented times zero. PSYCH: He just murmurs answers. His sodium was 115, potassium 5.4, white count 22.5, hemoglobin 15.7. ASSESSMENT: 1. Sepsis secondary to cellulitis around his ileostomy. 2. Possible right leg cellulitis. 3. Tracheostomy. 4. Anterior abdominal wall incision. 5. Significant hyponatremia secondary to severe dehydration. 6. Prerenal azotemia. 7. Uncontrolled diabetes mellitus. 8. Possible cellulitis of the right foot and gangrenous lesions. Continue with broad-spectrum antibiotics. Multiple consultants, including Infectious Disease. Sliding scale insulin. Rehydrate. Get Neurology and Psych to see him and social security assessor. Prognosis guarded. MMODL / IJN: [id number] /
--- NOTE | 2021-05-06 15:25 | P.CNNES ---
History of Present Illness Consult date: 05/06/21 Requesting physician: Micah Moy Reason for Consult: confusion History of Present Illness: This is a 70-year-old gentleman with medical history of bedbound since September 2020, chronic cervical and lower back pain, neuropathy ulcerative colitis with previous total abdominal colectomy with end ileostomy, atrial fibrillation, diabetes mellitus, DVT, hypertension, kidney insufficiency, nonischemic cardiology, bilateral cataracts, bilateral tinnitus presented to the emergency department on 05/02/2021 for redness around the ostomy site. Patient is a poor historian so history is obtained from medical record as well as that the patient nurse at. Neurology is consulted for altered mental status. According to the jeff truong's nurse the patient was responding to her and was oriented to self place and time but she had to ask him multiple times in order to get answers. She notified me that the per family members the patient has been bedbound since September 2020. Upon seeing the patient he stated that he is sleepy right now and the to come back later. Some of the workup in the hospital consisted of: Initial vital signs on presentation is blood pressure of 125/63, heart rate of 72, respiratory rate of 18, temperature of 98.0 Fahrenheit oral and pulse ox of 98% room air. Since the patient has been the hospital the patient has been afebrile. His white blood cell on presentation was 22.5 thousand and most current is at 10.6 thousand. On presentation his sodium level is 112 and the most recent is 124. Upon reviewing his previous visits was at as low as 130s in the past and the most recent one prior to this admission was 139 2019. Initially his potassium was 7.4 on the currently set 3.7 Creatinine currently is 0.45, serum glucose is 193, calcium 7.9, AST of 40 and ALT of 54, ammonia level is a 13, TSH is 0.699, magnesium is 1.6, hemoglobin A1c is 7.4 Digoxin level was less than 0.4 and a repeat is also less than 0.4 acid tone is negative Lombardo virus PCR is nondetected Nephrology is on board, surgery (general surgery) hat is on board Review of Systems Review of system is limited because of the patient's cooperation but that her positive and negative as per HPI Past Medical History Past Medical History: Atrial Fibrillation, Chest Pain / Angina, Heart Failure, Diabetes Mellitus, Deep Vein Thrombosis (DVT), Hypertension, Renal Disease Additional Past Medical History / Comment(s): Nonischemic cardiomyopathy, nonsustained vtach, IDDM type II, 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 History of Any Multi-Drug Resistant Organisms: None Reported Past Surgical History: AICD, Appendectomy, Back Surgery, Cholecystectomy, Heart Catheterization, Hernia Repair, Tonsillectomy Additional Past Surgical History / Comment(s): Ileostomy and a revision, BiV-ICD implanted in 2006 with gen change 2011, cardiac cath-normal, EGD/colonoscopies, cystoscopy, lithotripsies, bilateral ureteral stents, cervical fusion with plate, R inguinal hernia repair. Past Anesthesia/Blood Transfusion Reactions: No Reported Reaction Additional Past Anesthesia/Blood Transfusion Reaction / Comment(s): Limited ROM with neck. Type of Cardiac Device: AICD Device Placement Date:: 2006 Smoking Status: Never smoker - Past Family History Father Additional Family Medical History / Comment(s): Father of alcoholism. Mother Family Medical History: Hypertension Additional Family Medical History / Comment(s): Diverticular disease. Mother in her 80's. Medications and Allergies Home Medications Medication Instructions Recorded Confirmed Type Mirtazapine [Remeron] 45 mg PO DIRECTED 08/06/16 05/02/21 History allopurinoL [Zyloprim] 300 mg PO DIRECTED 08/06/16 05/02/21 History diazePAM [Valium] 5 mg PO DIRECTED 08/06/16 05/02/21 History Insuln Asp Prt/Insulin Aspart 1 dose SQ DIRECTED 02/21/18 05/02/21 History [NovoLOG MIX 70-30 VIAL] Digoxin [Lanoxin] 62.5 mcg PO DIRECTED 04/23/19 05/02/21 History Acetaminophen with Codeine 1 tab PO DIRECTED 05/02/21 05/02/21 History [Tylenol with Codeine #4 Tablet] Ferrous Sulfate [Feosol] 325 mg PO DIRECTED 05/02/21 05/02/21 History Metoprolol Tartrate [Lopressor] 50 mg PO DIRECTED 05/02/21 05/02/21 History Allergies Allergy/AdvReac Type Severity Reaction Status Date / Time Iodine and Iodide Containing Allergy Swelling Verified 05/02/21 13:38 Produc of Tongue Penicillins Allergy Rash/Hives Verified 05/02/21 13:38 Physical Examination - Vital Signs Vital Signs: Vital Signs Temp Pulse Resp BP Pulse Ox 05/06/21 12:28 97.8 F 67 16 90/50 98 05/06/21 08:38 98.7 F 72 16 110/62 97 05/06/21 04:00 99.5 F 70 18 97/61 99 05/06/21 02:00 71 18 05/06/21 00:00 98.6 F 71 18 93/52 98 05/05/21 20:00 98.1 F 69 16 93/61 100 05/05/21 16:18 98.1 F 70 15 114/68 99 Intake and Output 05/06/21 05/06/21 05/06/21 06:59 14:59 22:59 Output Total 225 200 Balance -225 -200 Output: Urine 225 Stool 200 Other: Voiding Method Indwelling Catheter Indwelling Catheter Weight 83.5 kg 83.5 kg GENERAL: The patient is lying in bed and does not appear in acute distress. CHEST: The heart rate is regular rate rhythm. No murmurs to auscultation. No carotid bruit bilaterally.. LUNG: Clear to auscultation bilaterally no wheezing noted throughout. Not labored breathing. ABDOMEN/GI: Bowel sounds present in all 4 quadrants. No tenderness to palpation throughout. PSYCH: Flat affect. NEUROLOGICAL: Limited because of patient cooperation. Patient was not complying with examination and he kept on Matt to come back after he takes his nap but with further questioning he would answer some questions and not. Higher mental function: The patient is awake but would not respond to the name place or time. He was able to name objects correctly such as pen and watch and glasses.. Patient is following simple commands. Unable to assess the patient's language because his cooperation and the regarding neglect felt the patient was preferring the left side and when I was on his right side of the bed he told me that he prefers to be on the left not the right because of the cataract which s eemed unusual. Cranial nerves: The pupils are round, equal and reactive to light. Visual walter are full to confrontation throughout. Extraocular movement is hard to assess because of his cooperation. No facial weakness. Tongue is midline and moved [id number] without any difficulties. No dysarthria. Rest of the cranial nerves is are hard to assess. Motor: Patient is bedbound. The strength is able to lift bilateral upper extremity above gravity but it's hard to assess individual strength because his cooperation. Regarding lowers he is able to have antigravity of dorsiflexion plantar flexion of the lower extremities other than that he stated that he is unable to move. Cerebellum: Unable to assess Sensation: Unable to assess Reflexes (right/left): 1+ throughout. Plantars are mute bilaterally. Results - Laboratory Findings CBC and BMP: 05/06/21 09:00 05/06/21 09:00 Abnormal Lab Findings: Abnormal Labs 05/02/21 05/02/21 05/02/21 10:25 10:25 10:25 WBC 22.5 H RBC Hgb Hct RDW Plt Count Neutrophils # 19.8 H Lymphocytes # Monocytes # 1.2 H Sodium 112 L* Potassium 7.4 H* Chloride 85 L Carbon Dioxide 11 L BUN 38 H Creatinine Glucose 242 H POC Glucose (mg/dL) Hemoglobin A1c Plasma Lactic Acid Jem 3.6 H* Calcium ALT 73 H Total Protein Albumin Urine Ketones Urine Blood Urine RBC Calcium Oxalate Crystal Amorphous Sediment Urine Bacteria Urine Mucus 05/02/21 05/02/21 05/02/21 10:54 11:20 13:50 WBC RBC Hgb Hct RDW Plt Count Neutrophils # Lymphocytes # Monocytes # Sodium Potassium 6.5 H* Chloride Carbon Dioxide BUN Creatinine Glucose POC Glucose (mg/dL) Hemoglobin A1c Plasma Lactic Acid Jem 2.8 H* Calcium ALT Total Protein Albumin Urine Ketones 1+ H Urine Blood Small H Urine RBC 21 H Calcium Oxalate Crystal Rare H Amorphous Sediment Rare H Urine Bacteria Rare H Urine Mucus Rare H 05/02/21 05/02/21 05/02/21 13:50 15:39 15:39 WBC RBC Hgb Hct RDW Plt Count Neutrophils # Lymphocytes # Monocytes # Sodium 115 L* Potassium 5.4 H Chloride 91 L Carbon Dioxide 13 L BUN 34 H Creatinine Glucose 233 H POC Glucose (mg/dL) 342 H Hemoglobin A1c Plasma Lactic Acid Jem 2.8 H* Calcium ALT Total Protein Albumin Urine Ketones Urine Blood Urine RBC Calcium Oxalate Crystal Amorphous Sediment Urine Bacteria Urine Mucus 05/02/21 05/02/21 05/03/21 20:12 20:22 04:40 WBC RBC Hgb Hct RDW Plt Count Neutrophils # Lymphocytes # Monocytes # Sodium 116 L* Potassium 5.9 H Chloride 93 L Carbon Dioxide 11 L BUN Creatinine Glucose POC Glucose (mg/dL) 290 H Hemoglobin A1c 7.4 H Plasma Lactic Acid Jem Calcium ALT Total Protein Albumin Urine Ketones Urine Blood Urine RBC Calcium Oxalate Crystal Amorphous Sediment Urine Bacteria Urine Mucus 05/03/21 05/03/21 05/03/21 04:40 04:40 06:45 WBC 19.8 H RBC Hgb Hct RDW Plt Count 85 L D Neutrophils # 17.7 H Lymphocytes # 0.8 L Monocytes # Sodium 115 L* Potassium 5.6 H Chloride 94 L Carbon Dioxide 12 L BUN 33 H Creatinine Glucose 196 H POC Glucose (mg/dL) 191 H Hemoglobin A1c Plasma Lactic Acid Jem Calcium 8.3 L ALT 62 H Total Protein 5.3 L Albumin 2.9 L Urine Ketones Urine Blood Urine RBC Calcium Oxalate Crystal Amorphous Sediment Urine Bacteria Urine Mucus 05/03/21 05/03/21 05/03/21 12:32 17:19 17:21 WBC 16.6 H RBC 3.35 L Hgb 10.5 L D Hct 28.9 L RDW Plt Count 118 L Neutrophils # Lymphocytes # Monocytes # Sodium Potassium Chloride Carbon Dioxide BUN Creatinine Glucose POC Glucose (mg/dL) 367 H 283 H Hemoglobin A1c Plasma Lactic Acid Jem Calcium ALT Total Protein Albumin Urine Ketones Urine Blood Urine RBC Calcium Oxalate Crystal Amorphous Sediment Urine Bacteria Urine Mucus 05/03/21 05/04/21 05/04/21 20:37 04:51 04:51 WBC 16.2 H RBC 4.22 L Hgb Hct 36.7 L RDW Plt Count 111 L Neutrophils # Lymphocytes # Monocytes # Sodium 119 L* Potassium Chloride 91 L Carbon Dioxide BUN Creatinine 0.49 L Glucose 140 H POC Glucose (mg/dL) 263 H Hemoglobin A1c Plasma Lactic Acid Jem Calcium 8.0 L ALT Total Protein Albumin Urine Ketones Urine Blood Urine RBC Calcium Oxalate Crystal Amorphous Sediment Urine Bacteria Urine Mucus 05/04/21 05/04/21 05/04/21 06:22 11:35 17:50 WBC RBC Hgb Hct RDW Plt Count Neutrophils # Lymphocytes # Monocytes # Sodium Potassium Chloride Carbon Dioxide BUN Creatinine Glucose POC Glucose (mg/dL) 173 H 216 H 241 H Hemoglobin A1c Plasma Lactic Acid Jme Calcium ALT Total Protein Albumin Urine Ketones Urine Blood Urine RBC Calcium Oxalate Crystal Amorphous Sediment Urine Bacteria Urine Mucus 05/04/21 05/05/21 05/05/21 20:52 03:35 03:35 WBC 12.8 H RBC 3.80 L Hgb 12.2 L Hct 34.1 L RDW Plt Count 114 L Neutrophils # 10.8 H Lymphocytes # 0.8 L Monocytes # Sodium 121 L Potassium Chloride 88 L Carbon Dioxide BUN Creatinine 0.42 L Glucose 151 H POC Glucose (mg/dL) 218 H Hemoglobin A1c Plasma Lactic Acid Jem Calcium 7.8 L ALT 54 H Total Protein 4.8 L Albumin 2.5 L Urine Ketones Urine Blood Urine RBC Calcium Oxalate Crystal Amorphous Sediment Urine Bacteria Urine Mucus 05/05/21 05/05/21 05/05/21 12:33 16:09 16:33 WBC RBC Hgb Hct RDW Plt Count Neutrophils # Lymphocytes # Monocytes # Sodium 123 L Potassium Chloride Carbon Dioxide BUN Creatinine Glucose POC Glucose (mg/dL) 157 H 170 H Hemoglobin A1c Plasma Lactic Acid Jem Calcium ALT Total Protein Albumin Urine Ketones Urine Blood Urine RBC Calcium Oxalate Crystal Amorphous Sediment Urine Bacteria Urine Mucus 05/05/21 05/06/21 05/06/21 19:39 06:23 09:00 WBC RBC 3.70 L Hgb 11.7 L Hct 33.4 L RDW 15.7 H Plt Count 104 L Neutrophils # Lymphocytes # Monocytes # Sodium Potassium Chloride Carbon Dioxide BUN Creatinine Glucose POC Glucose (mg/dL) 179 H 162 H Hemoglobin A1c Plasma Lactic Acid Jem Calcium ALT Total Protein Albumin Urine Ketones Urine Blood Urine RBC Calcium Oxalate Crystal Amorphous Sediment Urine Bacteria Urine Mucus 05/06/21 05/06/21 09:00 12:02 WBC RBC Hgb Hct RDW Plt Count Neutrophils # Lymphocytes # Monocytes # Sodium 124 L Potassium Chloride 93 L Carbon Dioxide BUN Creatinine 0.45 L Glucose 193 H POC Glucose (mg/dL) 211 H Hemoglobin A1c Plasma Lactic Acid Jem Calcium 7.9 L ALT Total Protein Albumin Urine Ketones Urine Blood Urine RBC Calcium Oxalate Crystal Amorphous Sediment Urine Bacteria Urine Mucus Assessment and Plan Assessment: Altered mental status seems likely due to metabolic encephalopathy especially with presentation of significant hyponatremia (112-->124). Acute Severe hyponatremia of 112 and most current 124 Patient is bed bound since 2012 Flat affect History of Chronic neck and lower back pain History of neuropathy ulcerative colitis with previous total abdominal colectomy with end ileostomy, Atrial fibrillation on Digoxin Diabetes mellitus in the most recent hemoglobin A1c 7.4 History of DVT Hypertension History of chronic Kidney insufficiency currently--normal History of nonischemic cardiomyopathy History of bilateral cataracts History of bilateral tinnitus Plan: I ordered CT of the head as well lumbar region. The vitamin B12, folate level. If the patient continues to be altered by 2 more than with the pursue with a routine EEG. We'll defer the sodium correction to the nephrology and the primary team. Please avoid the overcorrection. Physical therapy and occupation therapy are consulted. General surgery team is on board Psychiatrist team is on board We'll defer the rest of the medical management to the primary team. The plan is discussed with the patient's nurse. Thank you for the consultation. Grady Hinds M.D. Neuro-hospitalist Time with Patient: Greater than 30
--- NOTE | 2021-05-06 15:46 | CT ---
EXAMINATION TYPE: CT brain wo con DATE OF EXAM: 05/06/2021 COMPARISON: None HISTORY: Decreased mental status CT DLP: 1173.[address] of the brain was performed. The ventricles, basal cisterns and sulci overlying the cerebral convexities demonstrate mild enlargem ent. There is no evidence for intracranial hemorrhage or sulcal effacement. There is decreased attenuation about the periventricular white matter and deep white matter of both c erebral hemispheres, compatible with chronic small vessel ischemia. Differential diagnosis does inclu de demyelination. No mass effects are seen.No midline shift. Osseous calvarium is intact. If symptoms persist consider MRI. IMPRESSION: 1. Age related atrophic and chronic small vessel ischemic change without acute intracranial process s een at this time.
--- NOTE | 2021-05-06 15:49 | CT ---
EXAMINATION TYPE: CT lumbar spine wo con DATE OF EXAM: 05/06/2021 COMPARISON: None HISTORY: increased weakness CT DLP: 1073.[address] of the lumbar spine was performed. Bone and soft tissue window settings are submitted as well as coronal and sagittal reconstructions. L1-L2: Normal disc space height. No disc herniation protrusion or central stenosis. No facet joint arthropathy. No evidence for foraminal encroachment. L2-L3: Mild degenerative disc space narrowing. Minimal posterior disc bulge. No evidence for herniati on protrusion or central stenosis. The foramina are patent bilaterally. Very mild facet joint arthrop athy. L3-L4: Mild degenerative disc space narrowing. Minimal posterior disc bulge. No evidence for herniati on protrusion or central stenosis. The foramina are patent bilaterally. Very mild facet joint arthrop athy. L4-L5: Mild degenerative disc space narrowing. Minimal posterior disc bulge. No evidence for herniati on protrusion or central stenosis. The foramina are patent bilaterally. Very mild facet joint arthrop athy. L5-S1: Mild degenerative disc space narrowing. Minimal posterior disc bulge. No evidence for herniati on protrusion or central stenosis. The foramina are patent bilaterally. Very mild facet joint arthrop athy. No paraspinal masses are identified. Lumbar segments are free if fracture. IMPRESSION: 1. Mild degenerative disc disease as discussed.
[2021-05-06] MEDS: SODIUM CHLORIDE 0.9% 1,000 ML IV SCH (16:15)
[2021-05-06 16:56] LABS: Glucose,Whole Blood 177 mg/dL (75-99)
[2021-05-06] MEDS: FLUoxetine HCL 20 MG CAP PO SCH (17:15)
[2021-05-06] MEDS: LEVOFLOXACIN 500MG-D5W PMX 500 MG in DEXTROSE/WATER 1 100ML.BAG IVPB SCH (18:22)
--- NOTE | 2021-05-06 19:35 | P.PN ---
Subjective Progress Note Date: 05/06/21 Principal diagnosis: Upper GI bleed Sepsis likely due to cellulitis around ileostomy, patient will be started on IV cefazolin gently being rehydrated Cellulitis around the tracheostomy anterior abdominal wall skin Severe and significant hyponatremia Intravascular volume depletion dehydration with prerenal acidemia Uncontrolled diabetes and hyperglycemia 05/06/2021, patient seen eval examined during rounds labs reviewed medications reviewed more alert and awake, patient is been evaluated by neurology, patient has significant stomal ulceration and bleeding which appeared as a GI bleeding stopped with local measures, general surgery is following, hemoglobin remained stable at 11.7, sodium is up to 124, renal functions normal, patient more awake and alert now 05/04/2021, patient seen eval examined during the rounds labs reviewed medications reviewed care plan discussed with the staff and patient at length, respiratory status due to is stable, sodium is improving sleep, patient is now on bicarb drip patient is awake and alert, patient noted to have a bloody fecal material in the ileum last me back, general surgery has been consulted, hemoglobin however remains stable, patient remains on Protonix, labs reviewed white cell count is stable 16,000 with hemoglobin and hematocrit is 13 and 36, platelet count is 111 stabilize, sodium is up to 08/27/2019 and 0.49 and same medication shins Lovenox has been on hold now getting IV Levaquin ALLERGIES penicillin, Patient seen eval examined in ICU currently awake but cannot give him detailed history, lives by himself at home however family members noted erythematous redness around ostomy site, patient was in very disheveled condition with the concern of bed bugs unable to obtain detailed history, however patient has a history of extensive multiple abdominal surgery with absence of colon and presence of ileostomy, labs are significant for leukocytosis with WBC count 22,000, sodium was only 112, potassium 7.4, repeat was 6.5, BUN is 38, coated was negative chest x-ray unremarkable urinalysis was negative as well computed tomography scan of the abdominal and pelvis no acute process seen, blood cultures are been obtained, nephrology consultation obtained due to significant hyponatremia, patient had a liter of normal saline and Decadron, repeat labs revealed sodium 115 potassium 5.4. Crit 34.81, lactic acid 2.8, Past medical history significant for dementia Alzheimer's disease, mood disorder depression, gout, hypertension hypertensive cardiovascular disease, insulin requiring diabetes mellitus, Objective - Vital Signs Vital signs: Vital Signs Temp 99.0 F 05/06/21 16:00 Pulse 62 05/06/21 16:00 Resp 16 05/06/21 16:00 BP 91/52 05/06/21 16:00 Pulse Ox 97 05/06/21 16:00 Intake & Output 05/06/21 05/06/21 05/07/21 06:59 18:59 06:59 Output Total 275 500 Balance -275 -500 Weight 83.5 kg 83.5 kg Output: Urine 225 300 Stool 50 200 Other: Voiding Method Indwelling Catheter Indwelling Catheter - Exam Alert and oriented x3, not in acute distress, malodorous, filthy HEENT: Normocephalic atraumatic, extra-ocular movements intact, pupils equal and reactive to light bilaterally, mucous membranes moist. Cardiovascular: Heart regular rate and rhythm Chest: Able to complete full sentences, no retractions, no tachypnea Abdomen: abdomen soft, non-tender, non-distended, no organomegaly, ostomy site to the left lower quadrant with surrounding erythema bloody stool in the bag no longer seen Musculoskeletal: Pulses present and equal in all extremities, no peripheral edema Motor: no focal deficits noted Neurological: CN II-XII grossly intact, no focal motor or sensory deficits noted Skin: Intact with no visualized rashes, no decubitus ulcers Psych: Normal affect and mood - Labs CBC & Chem 7: 05/06/21 09:00 05/06/21 16:31 Labs: Abnormal Lab Results - Last 24 Hours (Table) 05/05/21 05/06/21 05/06/21 Range/Units 19:39 06:23 09:00 RBC 3.70 L (4.30-5.90) m/uL Hgb 11.7 L (13.0-17.5) gm/dL Hct 33.4 L (39.0-53.0) % RDW 15.7 H (11.5-15.5) % Plt Count 104 L (150-450) k/uL Sodium (137-145) mmol/L Chloride (98-107) mmol/L Creatinine (0.66-1.25) mg/dL Glucose (74-99) mg/dL POC Glucose (mg/dL) 179 H 162 H (75-99) mg/dL Calcium (8.4-10.2) mg/dL 05/06/21 05/06/21 05/06/21 Range/Units 09:00 12:02 16:31 RBC (4.30-5.90) m/uL Hgb (13.0-17.5) gm/dL Hct (39.0-53.0) % RDW (11.5-15.5) % Plt Count (150-450) k/uL Sodium 124 L 125 L (137-145) mmol/L Chloride 93 L (98-107) mmol/L Creatinine 0.45 L (0.66-1.25) mg/dL Glucose 193 H (74-99) mg/dL POC Glucose (mg/dL) 211 H (75-99) mg/dL Calcium 7.9 L (8.4-10.2) mg/dL 05/06/21 Range/Units 16:54 RBC (4.30-5.90) m/uL Hgb (13.0-17.5) gm/dL Hct (39.0-53.0) % RDW (11.5-15.5) % Plt Count (150-450) k/uL Sodium (137-145) mmol/L Chloride (98-107) mmol/L Creatinine (0.66-1.25) mg/dL Glucose (74-99) mg/dL POC Glucose (mg/dL) 177 H (75-99) mg/dL Calcium (8.4-10.2) mg/dL Microbiology - Last 24 Hours (Table) 05/02/21 10:10 Blood Culture - Preliminary Blood No Growth after 96 hours Assessment and Plan Assessment: Stomal bleed/ulceration around ileostomy bleeding stopped with local measures Sepsis likely due to cellulitis around ileostomy, patient to be continued on IV Levaquin as history of ALLERGY to penicillin, gently being rehydrated Cellulitis around the ileostomy anterior abdominal wall skin Severe and significant hyponatremia, continued to improve Intravascular volume depletion dehydration with prerenal Uncontrolled diabetes and hyperglycemia Plan: Overall plan includes gently rehydrate rehydrate the patient with normal saline aim to increase sodium less than 12 mEq a day Monitor labs closely Nephrology on consult for hyponatremia which appears to be hypovolemic IV Levaquin Sliding scale insulin I highly scale DVT and peptic ulcer disease prophylaxis Further plan of care as per clinical response of patient Time with Patient: Greater than 30
[2021-05-06 20:12] LABS: Glucose,Whole Blood 210 mg/dL (75-99)
[2021-05-06] MEDS: MELATONIN 3 MG TABLET PO SCH (22:06)
[2021-05-06] MEDS: MIRTAZAPINE 15 MG TAB PO SCH (22:07)
--- NOTE | 2021-05-07 01:03 | PN ---
PROGRESS NOTE A 70-year-old white male who is more alert today, giving appropriate answers. Remains on broad-spectrum antibiotics. He had a lumbar spine CT for generalized weakness. He is more dehydrated today. Breathing better. Broad-spectrum antibiotics. Infectious Disease has seen him. He has mild degenerative disease of his lower back. No significant disk herniations seen. Brain CT shows age-related changes, chronic small- vessel ischemic changes. Cardiovascular S1-S2. Lungs clear. GI soft. Hematology negative Homans. Psych: Fair mood and affect. ASSESSMENT: 1. Sepsis secondary to cellulitis around the ileostomy. Started IV cefazolin. 2. Rehydrated, is much better. 3. Severe hyponatremia, improving. 4. Intravascular volume depletion. 5. Prerenal azotemia. 6. Uncontrolled diabetes mellitus. PROGNOSIS: Continued treatment. Follow up next 24 to 48 hours for possible discharge to [facility]. MMIGORL / DAVIDN: [id number] /
[2021-05-07 06:03] LABS: Glucose,Whole Blood 178 mg/dL (75-99)
[2021-05-07] MEDS: INSULIN ASPART (NovoLOG) 100 UNIT/ML VIAL SQ SCH ×4 (06:19→20:31)
[2021-05-07] MEDS: SODIUM CHLORIDE 0.9% 1,000 ML IV SCH ×2 (06:19→19:41)
[2021-05-07 08:09] LABS: Anisocytosis Slight; Basophils % (A) 0 %; Eosinophils % (A) 0 %; HCT 29.9 % (39.0-53.0); HGB 10.5 gm/dL (13.0-17.5); Hyperchromasia Slight; Lymphocytes # (A) 0.7 k/uL (1.0-4.8); Lymphocytes % (A) 9 %; MCH 31.1 pg (25.0-35.0); MCHC 34.9 g/dL (31.0-37.0); MCV 89.1 fL (80.0-100.0); Mean Platelet Volume 8.7; Monocytes # (A) 0.5 k/uL (0-1.0); Monocytes % (A) 6 %; Neutrophils # (A) 6.5 k/uL (1.3-7.7); Neutrophils % (A) 83 %; Platelet Count 111 k/uL (150-450); RBC 3.36 m/uL (4.30-5.90); RDW 16.4 % (11.5-15.5); WBC 7.9 k/uL (3.8-10.6)
[2021-05-07 08:12] LABS: ALT 34 U/L (4-49); AST 31 U/L (17-59); African American GFR (CKD) >90 (>60 ml/min/1.73 sqM); Alkaline Phosphatase 61 U/L (38-126); Anion Gap 2 mmol/L; Blood Urea Nitrogen 14 mg/dL (9-20); Calcium 7.7 mg/dL (8.4-10.2); Carbon Dioxide 28 mmol/L (22-30); Chloride 97 mmol/L (98-107); Glucose 154 mg/dL (74-99); Magnesium 1.6 mg/dL (1.6-2.3); Non-African American GFR(CKD) >90 (>60 ml/min/1.73 sqM); Potassium 3.7 mmol/L (3.5-5.1); Sodium 127 mmol/L (137-145); Total Bilirubin 0.4 mg/dL (0.2-1.3)
[2021-05-07] MEDS: FLUoxetine HCL 20 MG CAP PO SCH ×2 (08:57→09:19)
[2021-05-07] MEDS: DIGOXIN 125 MCG TAB PO SCH ×2 (08:57→09:19)
[2021-05-07] MEDS: METOPROLOL TARTRATE 25 MG TAB PO SCH ×3 (08:57→20:33)
[2021-05-07] MEDS: SODIUM CHLORIDE TAB 1 GM TAB PO SCH ×3 (08:57→20:30)
[2021-05-07] MEDS: PANTOPRAZOLE 40 MG/10 ML VIAL IV SCH (09:06)
[2021-05-07] MEDS: FERROUS SULFATE 325 MG TAB PO SCH ×2 (09:06→17:01)
[2021-05-07] MEDS: ENOXAPARIN 30 MG/0.3 ML SYRINGE SQ SCH (09:06)
[2021-05-07] MEDS: allopurinoL 300 MG TAB PO SCH (09:06)
--- NOTE | 2021-05-07 09:57 | P.PN ---
Subjective Progress Note Date: 05/07/21 Principal diagnosis: Upper GI bleed Sepsis likely due to cellulitis around ileostomy, patient will be started on IV cefazolin gently being rehydrated Cellulitis around the tracheostomy anterior abdominal wall skin Severe and significant hyponatremia Intravascular volume depletion dehydration with prerenal acidemia Uncontrolled diabetes and hyperglycemia 05/07/2021, patient seen eval examined during the rounds labs reviewed medications reviewed awake alert breathing comfortably, denies any chest pain, patient denies any cough or sputum production, his labs from today reviewed hemoglobin is 10.5 white cell count is 7900, sodium is up to 127, BUN/creatinine 14 and 0.43, blood sugar improved to 154, albumin remains low 2.0, patient remains on DVT prophylaxis with digoxin to control the heart rate, sliding scale insulin and Levaquin for cellulitis and IV Protonix, patient is status post a right-sided midline 05/06/2021, patient seen eval examined during rounds labs reviewed medications reviewed more alert and awake, patient is been evaluated by neurology, patient has significant stomal ulceration and bleeding which appeared as a GI bleeding stopped with local measures, general surgery is following, hemoglobin remained stable at 11.7, sodium is up to 124, renal functions normal, patient more awake and alert now 05/04/2021, patient seen eval examined during the rounds labs reviewed medications reviewed care plan discussed with the staff and patient at length, respiratory status due to is stable, sodium is improving sleep, patient is now on bicarb drip patient is awake and alert, patient noted to have a bloody fecal material in the ileum last me back, general surgery has been consulted, hemoglobin however remains stable, patient remains on Protonix, labs reviewed white cell count is stable 16,000 with hemoglobin and hematocrit is 13 and 36, platelet count is 111 stabilize, sodium is up to 08/27/2019 and 0.49 and same medication shins Lovenox has been on hold now getting IV Levaquin ALLERGIES penicillin, Patient seen eval examined in ICU currently awake but cannot give him detailed history, lives by himself at home however family members noted erythematous redness around ostomy site, patient was in very disheveled condition with the concern of bed bugs unable to obtain detailed history, however patient has a history of extensive multiple abdominal surgery with absence of colon and presence of ileostomy, labs are significant for anne kocytosis with WBC count 22,000, sodium was only 112, potassium 7.4, repeat was 6.5, BUN is 38, coated was negative chest x-ray unremarkable urinalysis was negative as well computed tomography scan of the abdominal and pelvis no acute process seen, blood cultures are been obtained, nephrology consultation obtained due to significant hyponatremia, patient had a liter of normal saline and Decadron, repeat labs revealed sodium 115 potassium 5.4. Crit 34.81, lactic acid 2.8, Past medical history significant for dementia Alzheimer's disease, mood disorder depression, gout, hypertension hypertensive cardiovascular disease, insulin requiring diabetes mellitus, Objective - Vital Signs Vital signs: Vital Signs Temp 98.2 F 05/07/21 07:50 Pulse 76 05/07/21 07:50 Resp 18 05/07/21 07:50 BP 126/72 05/07/21 07:50 Pulse Ox 97 05/07/21 07:50 Intake & Output 05/06/21 05/07/21 05/07/21 18:59 06:59 18:59 Intake Total 900 Output Total 500 350 Balance -500 550 Weight 83.5 kg Intake: IV 900 0.9 900 Output: Urine 300 350 Stool 200 Other: Voiding Method Indwelling Catheter Indwelling Catheter Indwelling Catheter - Exam Alert and oriented x3, not in acute distress, malodorous, filthy HEENT: Normocephalic atraumatic, extra-ocular movements intact, pupils equal and reactive to light bilaterally, mucous membranes moist. Cardiovascular: Heart regular rate and rhythm Chest: Able to complete full sentences, no retractions, no tachypnea Abdomen: abdomen soft, non-tender, non-distended, no organomegaly, ostomy site to the left lower quadrant with surrounding erythema bloody stool in the bag no longer seen Musculoskeletal: Pulses present and equal in all extremities, no peripheral edema Motor: no focal deficits noted Neurological: CN II-XII grossly intact, no focal motor or sensory deficits noted Skin: Intact with no visualized rashes, no decubitus ulcers Psych: Normal affect and mood - Labs CBC & Chem 7: 05/07/21 07:32 05/07/21 07:32 Labs: Abnormal Lab Results - Last 24 Hours (Table) 05/06/21 05/06/21 05/06/21 Range/Units 12:02 16:31 16:54 RBC (4.30-5.90) m/uL Hgb (13.0-17.5) gm/dL Hct (39.0-53.0) % RDW (11.5-15.5) % Plt Count (150-450) k/uL Lymphocytes # (1.0-4.8) k/uL Sodium 125 L (137-145) mmol/L Chloride (98-107) mmol/L Creatinine (0.66-1.25) mg/dL Glucose (74-99) mg/dL POC Glucose (mg/dL) 211 H 177 H (75-99) mg/dL Calcium (8.4-10.2) mg/dL Total Protein (6.3-8.2) g/dL Albumin (3.5-5.0) g/dL 05/06/21 05/07/21 05/07/21 Range/Units 20:10 06:02 07:32 RBC (4.30-5.90) m/uL Hgb (13.0-17.5) gm/dL Hct (39.0-53.0) % RDW (11.5-15.5) % Plt Count (150-450) k/uL Lymphocytes # (1.0-4.8) k/uL Sodium 127 L (137-145) mmol/L Chloride 97 L (98-107) mmol/L Creatinine 0.43 L (0.66-1.25) mg/dL Glucose 154 H (74-99) mg/dL POC Glucose (mg/dL) 210 H 178 H (75-99) mg/dL Calcium 7.7 L (8.4-10.2) mg/dL Total Protein 4.0 L (6.3-8.2) g/dL Albumin 2.0 L (3.5-5.0) g/dL 05/07/21 Range/Units 07:32 RBC 3.36 L (4.30-5.90) m/uL Hgb 10.5 L (13.0-17.5) gm/dL Hct 29.9 L (39.0-53.0) % RDW 16.4 H (11.5-15.5) % Plt Count 111 L (150-450) k/uL Lymphocytes # 0.7 L (1.0-4.8) k/uL Sodium (137-145) mmol/L Chloride (98-107) mmol/L Creatinine (0.66-1.25) mg/dL Glucose (74-99) mg/dL POC Glucose (mg/dL) (75-99) mg/dL Calcium (8.4-10.2) mg/dL Total Protein (6.3-8.2) g/dL Albumin (3.5-5.0) g/dL Microbiology - Last 24 Hours (Table) 05/02/21 10:10 Blood Culture - Preliminary Blood No Growth after 96 hours Assessment and Plan Assessment: Stomal bleed/ulceration around ileostomy bleeding stopped with local measures Sepsis likely due to cellulitis around ileostomy, patient to be continued on IV Levaquin as history of ALLERGY to penicillin, gently being rehydrated Cellulitis around the ileostomy anterior abdominal wall skin Severe and significant hyponatremia, continued to improve Intravascular volume depletion dehydration with prerenal Uncontrolled diabetes and hyperglycemia Plan: Overall plan includes continued to gently rehydrate the patient with normal saline Monitor labs closely IV Levaquin Sliding scale insulin I highly scale DVT and peptic ulcer disease prophylaxis Further plan of care as per clinical response of patient Time with Patient: Greater than 30
--- NOTE | 2021-05-07 10:21 | P.PN ---
Subjective Progress Note Date: 05/07/21 The patient is seen at bedside and per the patient's nurse he would respond to her and is oriented to self, place and time on and off but had to repeatedly ask him questions. Per the nurse his son notified her late in the afternoon yesterday that patient had a Fall in 09/2020 and result he was kept bed-bound to keep him safe. Per nurse patient notified her that he committed to a ?crime. Upon seeing him he repeatedly asked me to leave the room since he wants to sleep. Objective - Vital Signs Vital signs: Vital Signs Temp 98.2 F 05/07/21 07:50 Pulse 76 05/07/21 07:50 Resp 18 05/07/21 07:50 BP 126/72 05/07/21 07:50 Pulse Ox 97 05/07/21 07:50 Intake & Output 05/06/21 05/07/21 05/07/21 18:59 06:59 18:59 Intake Total 900 Output Total 500 350 Balance -500 550 Weight 83.5 kg Intake: IV 900 0.9 900 Output: Urine 300 350 Stool 200 Other: Voiding Method Indwelling Catheter Indwelling Catheter - Exam GENERAL: The patient is lying in bed and does not appear in acute distress. PSYCH: Flat affect. NEUROLOGICAL: Limited because of patient cooperation. Patient was not complying with examination and he kept on telling to come back after he takes his nap but with further questioning he would answer some questions and not. Higher mental function: The patient is awake but would not respond to the name place or time. But later he stated he was in the hospital but would not respond to his name or time. He was able to name objects correctly such as pen and watch and glasses.. Patient is following simple commands (thumbs up and sticking his tongues out). Unable to assess the patient's language because his cooperation. Regarding neglect felt the patient was preferring the left side an d when I was on his right side of the bed he told me that he prefers to be on the left not the right because of the cataract. Cranial nerves: The pupils are round, equal and reactive to light. Visual walter are full to confrontation throughout. Extraocular movement is hard to assess because of his cooperation. No facial weakness. Tongue is midline and moved [id number] without any difficulties. No dysarthria. Rest of the cranial nerves is are hard to assess. Motor: Patient is bedbound. The strength is able to lift bilateral upper extremity above gravity but it's hard to assess individual strength because his cooperation. Regarding lowers he is able to have antigravity of dorsiflexion plantar flexion of ankles while proximally no movement note and was in pain when tried to move it. It seems he has decrease bulk over the lowers bilaterally and slightly increase tone. Cerebellum: Unable to assess Sensation: Unable to assess Reflexes (right/left): 1+ throughout uppers and lowers are 0-1+ bilaterally. Plantars are mute bilaterally. WORK-UP: AST of 40 and ALT of 54, ammonia level is a 13, TSH is 0.699, magnesium is 1.6, hemoglobin A1c is 7.4 CT of the head is reported as age-related atrophic and chronic small vessel ischemic change without acute intracranial process seen at this time. CT of the lumbar is reported as mild degenerative disc disease as discussed. And her body reported it is mild degenerative disc disease in L2-L3, L3-L4, L4 5 and L5-S1. - Labs CBC & Chem 7: 05/07/21 07:32 05/07/21 07:32 Labs: Abnormal Lab Results - Last 24 Hours (Table) 05/06/21 05/06/21 05/06/21 Range/Units 09:00 09:00 12:02 RBC 3.70 L (4.30-5.90) m/uL Hgb 11.7 L (13.0-17.5) gm/dL Hct 33.4 L (39.0-53.0) % RDW 15.7 H (11.5-15.5) % Plt Count 104 L (150-450) k/uL Lymphocytes # (1.0-4.8) k/uL Sodium 124 L (137-145) mmol/L Chloride 93 L (98-107) mmol/L Creatinine 0.45 L (0.66-1.25) mg/dL Glucose 193 H (74-99) mg/dL POC Glucose (mg/dL) 211 H (75-99) mg/dL Calcium 7.9 L (8.4-10.2) mg/dL Total Protein (6.3-8.2) g/dL Albumin (3.5-5.0) g/dL 05/06/21 05/06/21 05/06/21 Range/Units 16:31 16:54 20:10 RBC (4.30-5.90) m/uL Hgb (13.0-17.5) gm/dL Hct (39.0-53.0) % RDW (11.5-15.5) % Plt Count (150-450) k/uL Lymphocytes # (1.0-4.8) k/uL Sodium 125 L (137-145) mmol/L Chloride (98-107) mmol/L Creatinine (0.66-1.25) mg/dL Glucose (74-99) mg/dL POC Glucose (mg/dL) 177 H 210 H (75-99) mg/dL Calcium (8.4-10.2) mg/dL Total Protein (6.3-8.2) g/dL Albumin (3.5-5.0) g/dL 05/07/21 05/07/21 05/07/21 Range/Units 06:02 07:32 07:32 RBC 3.36 L (4.30-5.90) m/uL Hgb 10.5 L (13.0-17.5) gm/dL Hct 29.9 L (39.0-53.0) % RDW 16.4 H (11.5-15.5) % Plt Count 111 L (150-450) k/uL Lymphocytes # 0.7 L (1.0-4.8) k/uL Sodium 127 L (137-145) mmol/L Chloride 97 L (98-107) mmol/L Creatinine 0.43 L (0.66-1.25) mg/dL Glucose 154 H (74-99) mg/dL POC Glucose (mg/dL) 178 H (75-99) mg/dL Calcium 7.7 L (8.4-10.2) mg/dL Total Protein 4.0 L (6.3-8.2) g/dL Albumin 2.0 L (3.5-5.0) g/dL Microbiology - Last 24 Hours (Table) 05/02/21 10:10 Blood Culture - Preliminary Blood No Growth after 96 hours Assessment and Plan Assessment: * Altered mental status seems likely due to metabolic encephalopathy especially with presentation of significant hyponatremia (112-->127). Per the nurse he is oriented to self, place and time but to me on examining him twice he does not appear that way and seems neglecting the right side (when I am on his right side of bed). * Acute Severe hyponatremia of 112 and most current 127--improving. * Patient is bed bound since 09/2020 after a fall (he was notified to stay bed-b ound by son to prevent future falls). I feels he has deconditioning. * Flat affect * ?He notified a nurse a crime he committed and not sure how accurate that this especially with encephalopathy * History of Chronic neck and lower back pain * Diabetes Mellitus (most current HbA1c is 7.4 and prior was 8.4) * History of neuropathy * History of bilateral tinnitus * ulcerative colitis with previous total abdominal colectomy with end ileostomy, * Atrial fibrillation on Digoxin * History of DVT * Hypertension * History of chronic Kidney insufficiency currently--currently normal * History of nonischemic cardiomyopathy * History of bilateral cataracts Plan: vitamin B12, folate level are pending. Ordered CK level. Will get a routine EEG. I will not start the patient on antiepileptic unless there is epileptiform discharges or seizure on the EEG. Will consider getting MRI Brain. Recommend patient to get EMG with NCS of lowers predominately. Please avoid rapid correction to avoid osmotic demyelination. We'll defer the sodium correction to the nephrology and the primary team. Physical therapy and occupation therapy are consulted. General surgery team is on board Psychiatrist team is on board. We'll defer the rest of the medical management to the primary team. Upon discharge, the patient needs to follow-up with a neurologist within 1-2 weeks as outpatient. The plan is discussed with the patient's nurse. I spoke with the patient's son (Leonardo via phone) in length and he stated that his father He had surgeries in the neck and back in the past. He said his father had a fall around 09/2020 when he stood up and he refused to seek any medical help and refused to go to [facility] in [place] so the son was afraid he was going to fall again and made him bed bound. The son stated he was getting Tylenol #4 for his generalized pain and once that was stopped his behavior was not same. The patient lives with the son and he takes care of him. I feel the patient's son was no a great historian. I updated the nurse and notified that patient will benefit from therapy upon discharge. Grady Hinds M.D. Neuro-hospitalist Time with Patient: Less than 30
--- NOTE | 2021-05-07 11:03 | P.PN ---
<PhillipCrystal patel - Last Filed: 05/07/21 10:57> Subjective Progress Note Date: 05/07/21 CHIEF COMPLAINT: GI bleed HISTORY OF PRESENT ILLNESS: This a patient with a history of ulcerative colitis and previous total abdominal colectomy with end ileostomy. He was initially hospitalized in the ICU for hyponatremia and was transferred to selective unit yesterday. Surgery was consulted because he had some blood ported and his ostomy bag. He is seen and evaluated today with brown stool noted in his o stomy. There is no reported blood through the night. Patient was seen by the ostomy nurse yesterday, when removing the ostomy bag there was noted to be some bleeding at the stoma which they had to hold pressure. Patient was treated with silver nitrate in one small area to control further bleeding. He has had no further bleeding, stool brown with no blood in ostomy bag. He denies any abdominal pain, nausea, or vomiting. He remains afebrile. Hemoglobin is stable at 10.5. Nephrology is following patient closely for hyponatremia PHYSICAL EXAM: VITAL SIGNS: Reviewed. GENERAL: Well-developed in no acute distress. HEENT: No sclera icterus. Extraocular movements grossly intact. Moist buccal mucosa. Head is atraumatic, normocephalic. ABDOMEN: Soft. Nondistended. Nontender. Ostomy with brown stool. No evidence of bleeding. Mild erythema and dry skin surrounding ostomy. NEUROLOGIC: Alert and oriented. Cranial nerves II through XII grossly intact. ASSESSMENT: 1. GI bleed likely secondary to irritation at the stoma site PLAN: -Consult to ostomy nurse -Continue to monitor for any signs of GI bleed -No indication or plans for any surgical intervention The impression and plan of care has been dictated as directed. I performed a history and examination of this patient, discussed the same with the dictator. I agree with the dictator's note ,documented as a scribe. Any additional findings or plans will be noted. Objective - Vital Signs Vital signs: Vital Signs Temp 98.2 F 05/07/21 07:50 Pulse 76 05/07/21 07:50 Resp 18 05/07/21 07:50 BP 126/72 05/07/21 07:50 Pulse Ox 97 05/07/21 07:50 Intake & Output 05/06/21 05/07/2105/07/21 18:59 06:59 18:59 Intake Total 900 Output Total 500 350 Balance -500 550 Weight 83.5 kg Intake: IV 900 0.9 900 Output: Urine 300 350 Stool 200 Other: Voiding Method Indwelling Catheter Indwelling Catheter - Labs CBC & Chem 7: 05/07/21 07:32 05/07/21 07:32 Labs: Abnormal Lab Results - Last 24 Hours (Table) 05/06/21 05/06/21 05/06/21 Range/Units 09:00 09:00 12:02 RBC 3.70 L (4.30-5.90) m/uL Hgb 11.7 L (13.0-17.5) gm/dL Hct 33.4 L (39.0-53.0) % RDW 15.7 H (11.5-15.5) % Plt Count 104 L (150-450) k/uL Lymphocytes # (1.0-4.8) k/uL Sodium 124 L (137-145) mmol/L Chloride 93 L (98-107) mmol/L Creatinine 0.45 L (0.66-1.25) mg/dL Glucose 193 H (74-99) mg/dL POC Glucose (mg/dL) 211 H (75-99) mg/dL Calcium 7.9 L (8.4-10.2) mg/dL Total Protein (6.3-8.2) g/dL Albumin (3.5-5.0) g/dL 05/06/21 05/06/21 05/06/21 Range/Units 16:31 16:54 20:10 RBC (4.30-5.90) m/uL Hgb (13.0-17.5) gm/dL Hct (39.0-53.0) % RDW (11.5-15.5) % Plt Count (150-450) k/uL Lymphocytes # (1.0-4.8) k/uL Sodium 125 L (137-145) mmol/L Chloride (98-107) mmol/L Creatinine (0.66-1.25) mg/dL Glucose (74-99) mg/dL POC Glucose (mg/dL) 177 H 210 H (75-99) mg/dL Calcium (8.4-10.2) mg/dL Total Protein (6.3-8.2) g/dL Albumin (3.5-5.0) g/dL 05/07/21 05/07/21 05/07/21 Range/Units 06:02 07:32 07:32 RBC 3.36 L (4.30-5.90) m/uL Hgb 10.5 L (13.0-17.5) gm/dL Hct 29.9 L (39.0-53.0) % RDW 16.4 H (11.5-15.5) % Plt Count 111 L (150-450) k/uL Lymphocytes # 0.7 L (1.0-4.8) k/uL Sodium 127 L (137-145) mmol/L Chloride 97 L (98-107) mmol/L Creatinine 0.43 L (0.66-1.25) mg/dL Glucose 154 H (74-99) mg/dL POC Glucose (mg/dL) 178 H (75-99) mg/dL Calcium 7.7 L (8.4-10.2) mg/dL Total Protein 4.0 L (6.3-8.2) g/dL Albumin 2.0 L (3.5-5.0) g/dL Microbiology - Last 24 Hours (Table) 05/02/21 10:10 Blood Culture - Preliminary Blood No Growth after 96 hours <David Ojeda - Last Filed: 05/07/21 14:41> Subjective As above. Patient is depressed. No further bleeding. Area controlled yesterday with silver nitrate. We'll sign off. Please call for recurrent bleeding issues. Objective - Vital Signs Vital signs: Vital Signs Temp 98.2 F 05/07/21 07:50 Pulse 76 05/07/21 07:50 Resp 18 05/07/21 07:50 BP 126/72 05/07/21 07:50 Pulse Ox 97 05/07/21 07:50 Intake & Output 05/06/21 05/07/21 05/07/21 18:59 06:59 18:59 Intake Total 900 Output Total 500 350 Balance -500 550 Weight 83.5 kg Intake: IV 900 0.9 900 Output: Urine 300 350 Stool 200 Other: Voiding Method Indwelling Catheter Indwelling Catheter Indwelling Catheter - Labs CBC & Chem 7: 05/07/21 07:32 05/07/21 07:32 Labs: Abnormal Lab Results - Last 24 Hours (Table) 05/06/21 05/06/21 05/06/21 Range/Units 16:31 16:54 20:10 RBC (4.30-5.90) m/uL Hgb (13.0-17.5) gm/dL Hct (39.0-53.0) % RDW (11.5-15.5) % Plt Count (150-450) k/uL Lymphocytes # (1.0-4.8) k/uL Sodium 125 L (137-145) mmol/L Chloride (98-107) mmol/L Creatinine (0.66-1.25) mg/dL Glucose (74-99) mg/dL POC Glucose (mg/dL) 177 H 210 H (75-99) mg/dL Calcium (8.4-10.2) mg/dL Total Protein (6.3-8.2) g/dL Albumin (3.5-5.0) g/dL 05/07/21 05/07/21 05/07/21 Range/Units 06:02 07:32 07:32 RBC 3.36 L (4.30-5.90) m/uL Hgb 10.5 L (13.0-17.5) gm/dL Hct 29.9 L (39.0-53.0) % RDW 16.4 H (11.5-15.5) % Plt Count 111 L (150-450) k/uL Lymphocytes # 0.7 L (1.0-4.8) k/uL Sodium 127 L (137-145) mmol/L Chloride 97 L (98-107) mmol/L Creatinine 0.43 L (0.66-1.25) mg/dL Glucose 154 H (74-99) mg/dL POC Glucose (mg/dL) 178 H (75-99) mg/dL Calcium 7.7 L (8.4-10.2) mg/dL Total Protein 4.0 L (6.3-8.2) g/dL Albumin 2.0 L (3.5-5.0) g/dL 05/07/21 Range/Units 11:32 RBC (4.30-5.90) m/uL Hgb (13.0-17.5) gm/dL Hct (39.0-53.0) % RDW (11.5-15.5) % Plt Count (150-450) k/uL Lymphocytes # (1.0-4.8) k/uL Sodium (137-145) mmol/L Chloride (98-107) mmol/L Creatinine (0.66-1.25) mg/dL Glucose (74-99) mg/dL POC Glucose (mg/dL) 166 H (75-99) mg/dL Calcium (8.4-10.2) mg/dL Total Protein (6.3-8.2) g/dL Albumin (3.5-5.0) g/dL Microbiology - Last 24 Hours (Table) 05/02/21 10:10 Blood Culture - Preliminary Blood No Growth after 120 hours Assessment and Plan (1) GI bleed Current Visit: Yes Status: Acute Code(s): K92.2 - GASTROINTESTINAL HEMORRHAGE, UNSPECIFIED SNOMED Code(s): 39998519
--- NOTE | 2021-05-07 11:14 | P.PN ---
Subjective A shunt is seen in follow-up for hyponatremia. Sodium level 127. Oral intake remains poor. Also refuses oral medications. Not a reliable historian. Vital signs are stable. General: The patient appeared well nourished and normally developed. HEENT: Head exam is unremarkable. LUNGS: Breath sounds decreased. HEART: Rate and Rhythm are regular. ABDOMEN: Soft, no distention. EXTREMITITES: No edema. Objective - Vital Signs Vital signs: Vital Signs Temp 98.2 F 05/07/21 07:50 Pulse 76 05/07/21 07:50 Resp 18 05/07/21 07:50 BP 126/72 05/07/21 07:50 Pulse Ox 97 05/07/21 07:50 Intake & Output 05/06/21 05/07/21 05/07/21 18:59 06:59 18:59 Intake Total 900 Output Total 500 350 Balance -500 550 Weight 83.5 kg Intake: IV 900 0.9 900 Output: Urine 300 350 Stool 200 Other: Voiding Method Indwelling Catheter Indwelling Catheter Indwelling Catheter - Labs CBC & Chem 7: 05/07/21 07:32 05/07/21 07:32 Labs: Abnormal Lab Results - Last 24 Hours (Table) 05/06/21 05/06/21 05/06/21 Range/Units 12:02 16:31 16:54 RBC (4.30-5.90) m/uL Hgb (13.0-17.5) gm/dL Hct (39.0-53.0) % RDW (11.5-15.5) % Plt Count (150-450) k/uL Lymphocytes # (1.0-4.8) k/uL Sodium 125 L (137-145) mmol/L Chloride (98-107) mmol/L Creatinine (0.66-1.25) mg/dL Glucose (74-99) mg/dL POC Glucose (mg/dL) 211 H 177 H (75-99) mg/dL Calcium (8.4-10.2) mg/dL Total Protein (6.3-8.2) g/dL Albumin (3.5-5.0) g/dL 05/06/21 05/07/21 05/07/21 Range/Units 20:10 06:02 07:32 RBC (4.30-5.90) m/uL Hgb (13.0-17.5) gm/dL Hct (39.0-53.0) % RDW (11.5-15.5) % Plt Count (150-450) k/uL Lymphocytes # (1.0-4.8) k/uL Sodium 127 L (137-145) mmol/L Chloride 97 L (98-107) mmol/L Creatinine 0.43 L (0.66-1.25) mg/dL Glucose 154 H (74-99) mg/dL POC Glucose (mg/dL) 210 H 178 H (75-99) mg/dL Calcium 7.7 L (8.4-10.2) mg/dL Total Protein 4.0 L (6.3-8.2) g/dL Albumin 2.0 L (3.5-5.0) g/dL 05/07/21 Range/Units 07:32 RBC 3.36 L (4.30-5.90) m/uL Hgb 10.5 L (13.0-17.5) gm/dL Hct 29.9 L (39.0-53.0) % RDW 16.4 H (11.5-15.5) % Plt Count 111 L (150-450) k/uL Lymphocytes # 0.7 L (1.0-4.8) k/uL Sodium (137-145) mmol/L Chloride (98-107) mmol/L Creatinine (0.66-1.25) mg/dL Glucose (74-99) mg/dL POC Glucose (mg/dL) (75-99) mg/dL Calcium (8.4-10.2) mg/dL Total Protein (6.3-8.2) g/dL Albumin (3.5-5.0) g/dL Microbiology - Last 24 Hours (Table) 05/02/21 10:10 Blood Culture - Preliminary Blood No Growth after 96 hours Assessment and Plan Plan: Assessment: 1. Hypovolemic hyponatremia improving with IV hydration. Also component of poor solute intake. Sodium level 123 yesterday afternoon. Urine osmolality 401 and on repeat 529. Urine sodium less than 10. TSH and serum cortisol normal. 2. Hyperkalemia on admission. Now resolved. 3. Metabolic acidosis secondary to GI losses. Resolved. 4. History of ulcerative colitis. Has a colostomy. Plan: 1200 mL free water restriction. Encouraged oral intake. Added ensure. Maintain normal saline. Maintain sodium chloride tabs - has been refusing oral meds. Continue to monitor.
[2021-05-07 11:34] LABS: Glucose,Whole Blood 166 mg/dL (75-99)
--- NOTE | 2021-05-07 13:46 | P.PN ---
Progress Note - Text Progress Note Date: 05/07/21 Interval History: Patient was seen today for psychiatric follow-up regarding his depression. Dion leroy's nurse states that patient has been refusing medications and treatment along with assessments. Nurse also claims that patient wanted to be left alone and was making passive suicidal thoughts. Patient was seen at the bedside and appears to be fairly lethargic and when play writer attempted to speak with patient patient was not able to look up at play writer and acknowledge him. Patient did not respond to play writer and simply was staring blankly. He did not answer any questions. Mental Status Exam: General Appearance: Patient appears to be older than stated age is alert, attempts to cooperate. Patient appears to have poor/troubled hygiene and grooming wearing hospital gown with poor eye contact. Behavior: Patient is calmly lying in bed without any agitated behavior. Staring blankly. Speech: Unable to assess Mood/Affect: Unable to assess Suicidality/Homicidality: Unable to assess Perceptions: Unable to assess Though content/process: unable to assess Memory and concentration: Unable to assess Judgment and insight: poor Assessment Delirium likely etiology toxic-metabolic Depressive disorder unspecified Failure to thrive Plan: -At this time patient DOES NOT meet criteria for inpatient psychiatric admission. -Patient DOES NOT have decision making capacity at this time and is unable to reason through and communicate/appreciate the risks, benefits and alternatives to treatment. -Delirium precautions recommended with patient including - avoiding use of narcotics and CLOTH BLEACHING RANGE OPERATOR CHIEF sedatives, limit anticholinergic medications when possible, frequent re-orientation, minimize use of restraints, open window shades during the day and close them at night -Would recommend the following medication changes/additions: Continue Remeron 45 mg daily at bedtime for mood/insomnia/appetite. Prozac 20 mg daily for mood/anxiety. melatonin 3 mg daily at bedtime for sleep. Please avoid any benzodiazepines or opiates at this time because that will further medication more confused or delirious. -Continue with slow correction of patient's sodium and other electrolytes. Tenuous treatment of underlying infection. -social worker school to provide patient with outpatient mental health/psychiatry resources for appropriate follow up upon discharge -social worker school to work with patient's family and patient on placement as he cannot care for himself. -Communicated plan to patient's nurse -Will continue to follow along -Please contact with any questions.
--- NOTE | 2021-05-07 15:20 | EEG ---
ELECTROENCEPHALOGRAM REPORT DATE OF SERVICE: 05/07/2021. CLINICAL HISTORY: This is a 70-year-old gentleman with altered mental status. The video EEG is obtained to evaluate for seizure and epileptiform activity. RELEVANT MEDICATION: The patient is not on any antiepileptic drugs. EEG TYPE: A routine 21-channel EEG is performed with video using the 10/20 electrode system. DESCRIPTION: Wakefulness, drowsiness and stage 2 sleep are obtained. During wakefulness, there is a posterior-dominant rhythm of low to moderate voltage of 9-10 hertz activity. During drowsiness there is slowing and attenuation of background activity. During stage 2 sleep there are sleep spindles and K complexes. There is no focal slowing. Interictal and ictal is none. ACTIVATION PROCEDURE: Photic stimulation and hyperventilation are not performed. CLINICAL INTERPRETATION: This is a normal routine EEG. There are no focal slowing, epileptiform discharges or seizure on the EEG. Clinical correlation is recommended. PETER / MAREK: [id number] / [email or web address]
[2021-05-07 16:20] LABS: Glucose,Whole Blood 157 mg/dL (75-99)
--- NOTE | 2021-05-07 16:27 | CT ---
EXAMINATION TYPE: CT brain wo con DATE OF EXAM: 05/07/2021 COMPARISON: 05/06/2021 INDICATION: Decreased mental status. DLP: 1247.4 mGycm, Automated exposure control for dose reduction was used. CONTRAST: None CT of the brain is performed utilizing 3 mm thick sections through the posterior fossa and 3 mm thick sections through the remaining calvarium. Study is performed within 24 hours of arrival to the hosp [facility]. No abnormal hyperdensity is present to suggest an acute intracranial hemorrhage. No mass lesion is evident. No acute infarcts are evident. Ventricles and sulci are appropriate for the patient age. Hyperostosis frontalis internus, normal variant, is present. Mucosal thickenings within posterior ethmoid air cells bilaterally. Sphenoid sinuses frontal sinuses and maxillary sinuses are clear. Mastoid air cells appear clear. IMPRESSIONS: 1. No acute intracranial process.
[2021-05-07] MEDS: LEVOFLOXACIN 500MG-D5W PMX 500 MG in DEXTROSE/WATER 1 100ML.BAG IVPB SCH (16:59)
[2021-05-07 19:48] LABS: Glucose,Whole Blood 194 mg/dL (75-99)
[2021-05-07] MEDS: MIRTAZAPINE 15 MG TAB PO SCH (20:32)
[2021-05-07] MEDS: MELATONIN 3 MG TABLET PO SCH (20:32)
--- NOTE | 2021-05-07 20:33 | CDI ---
Documentation Clarification Form Date: 05/07/2021 08:02:35 PM From: Melissa Murphy RN, CCDS Admit Date: 05/02/2021 12:25:00 PM Patient Name: Terrence Coronel Visit Number: [id number] ATTENTION: The Clinical Documentation Specialists (CDI) and [facility] Coding Staff appreciate your assistance in clarifying documentation. Please respond to the clarification below the line at the bottom and electronically sign. The CDI & [facility] Coding staff will review the response and follow-up if needed. Please note: Queries are made part of the Legal Health Record. If you have any questions, please contact the author of this message via ITS. Dr. Micah Moy History of Atrial Fibrillation is documented in all of the MD consultations. [Additional clarification regarding the type of atrial fibrillation is requested. History/Risk Factors: Atrial Fibrillation, Chest Pain / Angina, Heart Failure, Diabetes Mellitus, Deep Vein Thrombosis (DVT), Hypertension, Renal Disease, CHF, NSVT, IDDM2, Ileostomy, AICD, PTCA Clinical Indicators: 05/03 Nephrology Consult: "Atrial fibrillation with paced rhythm." 05/06 Neurology consult: "ulcerative colitis with previous total abdominal colectomy with end ileostomy, Atrial fibrillation on Digoxin." EKG/telemetry: BI-V paced rhythm Treatment: Digoxin 62.5 mcg Po QD Lovenox 30 mg Sq Daily Lopressor 25 mg PO BID Consults: Please clarify the type of atrial fibrillation, if known: [ ] Chronic [ ] Permanent [ ] Paroxysmal [ ] Persistent [ ] Other, please specify [ ] Unable to determine (Template Last Revised: December 2020) MTDD
[2021-05-08 01:57] LABS: Folate, Serum 8.7 ng/mL (4.40-31.00)
[2021-05-08] MEDS: SODIUM CHLORIDE 0.9% 1,000 ML IV SCH ×2 (03:05→19:51)
[2021-05-08 06:10] LABS: Glucose,Whole Blood 145 mg/dL (75-99)
[2021-05-08] MEDS: INSULIN ASPART (NovoLOG) 100 UNIT/ML VIAL SQ SCH ×4 (06:14→19:50)
[2021-05-08] MEDS: FERROUS SULFATE 325 MG TAB PO SCH ×2 (06:15→17:52)
[2021-05-08 08:58] LABS: African American GFR (CKD) >90 (>60 ml/min/1.73 sqM); Anion Gap 3 mmol/L; Blood Urea Nitrogen 15 mg/dL (9-20); Calcium 7.8 mg/dL (8.4-10.2); Carbon Dioxide 27 mmol/L (22-30); Chloride 100 mmol/L (98-107); Glucose 129 mg/dL (74-99); Magnesium 1.6 mg/dL (1.6-2.3); Non-African American GFR(CKD) >90 (>60 ml/min/1.73 sqM); Potassium 3.5 mmol/L (3.5-5.1); Sodium 130 mmol/L (137-145)
[2021-05-08] MEDS ORDERED: Magnesium Replacement Protocol 1 EACH MISC MISCELLANE PRN (09:03)
[2021-05-08] MEDS ORDERED: POTASSIUM CHLORIDE ER 20 MEQ TAB.ER PO STA (09:04)
--- NOTE | 2021-05-08 09:29 | PN ---
PROGRESS NOTE 70-year-old white male, appears to be more obtunded today. He remains on Lovenox anticoagulation. Lanoxin level is normal. He is nodding but he looks like he has some tongue deviation to the left and some facial drooping on the left tonight. He does not really respond, just shakes his head a little bit. He is on NSAID prophylaxis, Levaquin for UTI. Psychiatry saw him. Neurology saw him. White count normal at 7.9, down from 22,000, hemoglobin 7.5. His sodium was 127, potassium 5.7, BUN is 14, creatinine 0.43. Sugars in the mid 100s. Cardiovascular S1-S2. Lungs clear. GI is soft. Repeat of a brain CT due to possible stroke was done tonight. They can not do an MRI due to pacemaker. No intracranial hemorrhages. No mass. No acute infarcts. Wait for neurology recommendations. Continue current treatment for infections. Rehydrate. Blood cultures are negative. Await for recommendations from Neurology and Psychiatry as mental status confusion due to UTI does not make sense. His white count is now normal. He may be having a TIA versus stroke. Await for Neurology recommendation. MMODL / IJN: [id number] /
[2021-05-08] MEDS: SODIUM CHLORIDE TAB 1 GM TAB PO SCH ×2 (10:01→19:50)
[2021-05-08] MEDS: FLUoxetine HCL 20 MG CAP PO SCH ×2 (10:01→12:26)
[2021-05-08] MEDS: METOPROLOL TARTRATE 25 MG TAB PO SCH ×2 (10:01→19:41)
[2021-05-08] MEDS: allopurinoL 300 MG TAB PO SCH (10:01)
[2021-05-08] MEDS: DIGOXIN 125 MCG TAB PO SCH (10:01)
[2021-05-08] MEDS: ENOXAPARIN 30 MG/0.3 ML SYRINGE SQ SCH (10:03)
[2021-05-08] MEDS: MAGNESIUM SULFATE-D5W PMX 1 GM in DEXTROSE/WATER 1 100ML.BAG IVPB SCH ×2 (10:04→12:20)
[2021-05-08] MEDS: PANTOPRAZOLE 40 MG/10 ML VIAL IV SCH (10:04)
--- NOTE | 2021-05-08 10:54 | P.PN ---
Subjective A shunt is seen in follow-up for hyponatremia. Sodium level 130. Oral intake remains poor. Remains quite weak. Not a reliable historian. Vital signs are stable. General: The patient appeared well nourished and normally developed. HEENT: Head exam is unremarkable. LUNGS: Breath sounds decreased. HEART: Rate and Rhythm are regular. ABDOMEN: Soft, no distention. EXTREMITITES: No edema. Objective - Vital Signs Vital signs: Vital Signs Temp 98.0 F 05/08/21 08:00 Pulse 73 05/08/21 08:00 Resp 18 05/08/21 08:00 BP 115/70 05/08/21 08:00 Pulse Ox 97 05/08/21 08:00 Intake & Output 05/07/21 05/08/21 05/08/21 18:59 06:59 18:59 Intake Total 120 Output Total 175 275 Balance -175 -155 Weight 101 kg 101 kg Intake: Oral 120 Output: Urine 175 275 Other: Voiding Method Indwelling Catheter Indwelling Catheter Indwelling Catheter # Bowel Movements 1 1 - Labs CBC & Chem 7: 05/07/21 07:32 05/08/21 08:09 Labs: Abnormal Lab Results - Last 24 Hours (Table) 05/06/21 05/07/21 05/07/21 Range/Units 16:31 11:32 16:18 Sodium (137-145) mmol/L Creatinine (0.66-1.25) mg/dL Glucose (74-99) mg/dL POC Glucose (mg/dL) 166 H 157 H (75-99) mg/dL Calcium (8.4-10.2) mg/dL Vitamin B12 970.0 H (200.0-944.0) pg/mL 05/07/21 05/08/21 05/08/21 Range/Units 19:46 06:08 08:09 Sodium 130 L (137-145) mmol/L Creatinine 0.42 L (0.66-1.25) mg/dL Glucose 129 H (74-99) mg/dL POC Glucose (mg/dL) 194 H 145 H (75-99) mg/dL Calcium 7.8 L (8.4-10.2) mg/dL Vitamin B12 (200.0-944.0) pg/mL Microbiology - Last 24 Hours (Table) 05/02/21 10:10 Blood Culture - Preliminary Blood No Growth after 120 hours Assessment and Plan Plan: Assessment: 1. Hypovolemic hyponatremia improving with IV hydration. Also component of poor solute intake. Sodium level 130 today. Urine osmolality 401 and on repeat 529. Urine sodium less than 10. TSH and serum cortisol normal. 2. Hyperkalemia on admission. Resolved. No potassium slightly on the lower side. 3. Metabolic acidosis secondary to GI losses. Resolved. 4. History of ulcerative colitis. Has a colostomy. Plan: 1200 mL free water restriction. Encouraged oral intake. Added ensure. Maintain normal saline. Maintain sodium chloride tabs. Continue to monitor. Replace potassium and magnesium.
[2021-05-08 12:01] LABS: Glucose,Whole Blood 182 mg/dL (75-99)
[2021-05-08] MEDS: POTASSIUM CHLORIDE 10 MEQ in WATER FOR INJECTION 1 100ML.BAG IVPB SCH ×4 (13:30→18:53)
--- NOTE | 2021-05-08 13:31 | P.PN ---
Progress Note - Text Progress Note Date: 05/08/21 Interval History: Patient was seen today for psychiatric follow-up regarding his depression. Dion leroy's nurse states that patient continues to be refusing medications and treatment along with assessments. Nurse also claimed that patient mentioned that he wants to "just go to sleep". Patient was seen sitting on his chair beside his bed today and had his eyes partially open. Coating Engineer attempted to speak with patient multiple times and called his name however patient was not following any commands and did not speak to senior underwriter. He did not not reply to any questions. She does appear to have a flat affect and appears to be depressed. Mental Status Exam: General Appearance: Patient appears to be older than stated age is alert, non- cooperative. Patient appears to have poor/troubled hygiene and grooming wearing hospital gown with poor eye contact. Behavior: Patient is being in his chairwithout any agitated behavior. Staring blankly. Speech: Unable to assess, non verbal today Mood/Affect: Unable to assess Suicidality/Homicidality: Unable to assess Perceptions: Unable to assess Though content/process: unable to assess Memory and concentration: Unable to assess Judgment and insight: poor Assessment Depressive disorder unspecified Failure to thrive Plan: -Due to patient's depressed affect unwillingness to cooperate or take medications and mentioning to the nurses/staff passive suicidal thoughts, patient should be transferred to a medical psychiatric bed when possible. -Patient DOES NOT have decision making capacity at this time and is unable to reason through and communicate/appreciate the risks, benefits and alternatives to treatment. -Delirium precautions recommended with patient including - avoiding use of narcotics and ENTERPRISE RECORDS ANALYST sedatives, limit anticholinergic medications when possible, frequent re-orientation, minimize use of restraints, open window shades during the day and close them at night -Would recommend the following medication changes/additions: Continue Remeron 45 mg daily at bedtime for mood/insomnia/appetite. Prozac 20 mg daily for mood/anxiety. melatonin 3 mg daily at bedtime for sleep. -Continue with slow correction of patient's sodium and other electrolytes, gradually improving. WBCs wnl today. -telephone worker to fax packets for med psych bed and transfer. -Communicated plan to patient's nurse -Will continue to follow along as needed. -Please contact with any questions.
[2021-05-08 16:50] LABS: Glucose,Whole Blood 182 mg/dL (75-99)
[2021-05-08] MEDS: LEVOFLOXACIN 500MG-D5W PMX 500 MG in DEXTROSE/WATER 1 100ML.BAG IVPB SCH (18:38)
[2021-05-08] MEDS: MELATONIN 3 MG TABLET PO SCH (19:41)
[2021-05-08 19:47] LABS: Glucose,Whole Blood 250 mg/dL (75-99)
[2021-05-08] MEDS: MIRTAZAPINE 15 MG TAB PO SCH (19:50)
--- NOTE | 2021-05-09 00:06 | PN ---
PROGRESS NOTE 70-year-old white male who is more alert today. Giving appropriate answers. Sugars in the mid 100s to 200. Sodium 130, potassium 3.5, creatinine 0.42, going to get someone to help him eat. He is improving from a mental standpoint. Temperature 97 to 98, respiratory 18-20, pulse 60 to 70, blood pressure 104 to 118 over 50s to 60s, O2 is 97-100 percent on room air. Psychiatry and Neurology has seen him as well as renal physician. IMPRESSION: 1. Sepsis. 2. Depression. 3. Failure to thrive. 4. Delirium. 5. Hyponatremia. 6. Generalized debility, unable to walk. Continue current treatments, possible send to rehab in the next 2-4 days. PROGNOSIS: Guarded. MMIGORL / IJN: [id number] /
[2021-05-09 06:06] LABS: Glucose,Whole Blood 120 mg/dL (75-99)
[2021-05-09] MEDS: INSULIN ASPART (NovoLOG) 100 UNIT/ML VIAL SQ SCH ×4 (06:06→21:01)
[2021-05-09] MEDS: FERROUS SULFATE 325 MG TAB PO SCH ×2 (06:26→17:22)
[2021-05-09 07:59] LABS: Anisocytosis Slight; Basophils % (A) 0 %; Eosinophils # (A) 0.1 k/uL (0-0.7); Eosinophils % (A) 1 %; HCT 31.5 % (39.0-53.0); HGB 10.6 gm/dL (13.0-17.5); Lymphocytes # (A) 0.9 k/uL (1.0-4.8); Lymphocytes % (A) 12 %; MCH 31.4 pg (25.0-35.0); MCHC 33.6 g/dL (31.0-37.0); MCV 93.4 fL (80.0-100.0); Monocytes # (A) 0.5 k/uL (0-1.0); Monocytes % (A) 7 %; Neutrophils # (A) 5.7 k/uL (1.3-7.7); Neutrophils % (A) 78 %; RBC 3.38 m/uL (4.30-5.90); RDW 16.3 % (11.5-15.5); WBC 7.3 k/uL (3.8-10.6)
[2021-05-09 08:15] LABS: ALT 27 U/L (4-49); AST 27 U/L (17-59); African American GFR (CKD) >90 (>60 ml/min/1.73 sqM); Alkaline Phosphatase 58 U/L (38-126); Anion Gap 0 mmol/L; Blood Urea Nitrogen 13 mg/dL (9-20); Calcium 7.7 mg/dL (8.4-10.2); Carbon Dioxide 26 mmol/L (22-30); Chloride 100 mmol/L (98-107); Glucose 128 mg/dL (74-99); Magnesium 1.6 mg/dL (1.6-2.3); Non-African American GFR(CKD) >90 (>60 ml/min/1.73 sqM); Potassium 3.9 mmol/L (3.5-5.1); Sodium 126 mmol/L (137-145); Total Bilirubin 0.3 mg/dL (0.2-1.3); Total Protein 3.9 g/dL (6.3-8.2)
[2021-05-09 09:02] LABS: Platelet Count 99 k/uL (150-450)
--- NOTE | 2021-05-09 09:59 | P.PN ---
Subjective Progress Note Date: 05/09/21 Principal diagnosis: Upper GI bleed Sepsis likely due to cellulitis around ileostomy, patient will be started on IV cefazolin gently being rehydrated Cellulitis around the tracheostomy anterior abdominal wall skin Severe and significant hyponatremia Intravascular volume depletion dehydration with prerenal acidemia Uncontrolled diabetes and hyperglycemia 05/09/2021, patient seen eval examined during the rounds labs reviewed medications reviewed Discussed, Respiratory Status Remains Stable Denies Any Chest Pain Mild Shortness of Breath Is Present, Recommend to Obtain PT OT Evaluation, Increase Activity As Tolerated, Patient Has Been Placed on Regular Diet, labs from today reviewed hemoglobin and hematocrit remain stable 06/08, sodium is up to 126, BUN/creatinine remains stable, 05/07/2021, patient seen eval examined during the rounds labs reviewed medications reviewed awake alert breathing comfortably, denies any chest pain, patient denies any cough or sputum production, his labs from today reviewed hemoglobin is 10.5 white cell count is 7900, sodium is up to 127, BUN/creatinine 14 and 0.43, blood sugar improved to 154, albumin remains low 2.0, patient remains on DVT prophylaxis with digoxin to control the heart rate, sliding scale insulin and Levaquin for cellulitis and IV Protonix, patient is status post a right-sided midline 05/06/2021, patient seen eval examined during rounds labs reviewed medications reviewed more alert and awake, patient is been evaluated by neurology, patient has significant stomal ulceration and bleeding which appeared as a GI bleeding stopped with local measures, general surgery is following, hemoglobin remained stable at 11.7, sodium is up to 124, renal functions normal, patient more awake and alert now 05/04/2021, patient seen eval examined during the rounds labs reviewed medications reviewed care plan discussed with the staff and patient at length, respiratory status due to is stable, sodium is improving sleep, patient is now on bicarb drip patient is awake and alert, patient noted to have a bloody fecal material in the ileum last me back, general surgery has been consulted, hemoglobin however remains stable, patient remains on Protonix, labs reviewed white cell count is stable 16,000 with hemoglobin and hematocrit is 13 and 36, platelet count is 111 stabilize, sodium is up to 08/27/2019 and 0.49 and same medication shins Lovenox has been on hold now getting IV Levaquin ALLERGIES penicillin, Patient seen eval examined in ICU currently awake but cannot give him detailed history, lives by himself at home however family members noted erythematous redness around ostomy site, patient was in very disheveled condition with the concern of bed bugs unable to obtain detailed history, however patient has a history of extensive multiple abdominal surgery with absence of colon and presence of ileostomy, labs are significant for leukocytosis with WBC count 22,000, sodium was only 112, potassium 7.4, repeat was 6.5, BUN is 38, coated was negative chest x-ray unremarkable urinalysis was negative as well computed tomography scan of the abdominal and pelvis no acute process seen, blood cultures are been obtained, nephrology consultation obtained due to significant hyponatremia, patient had a liter of normal saline and Decadron, repeat labs revealed sodium 115 potassium 5.4. Crit 34.81, lactic a aaron 2.8, Past medical history significant for dementia Alzheimer's disease, mood disorder depression, gout, hypertension hypertensive cardiovascular disease, insulin requiring diabetes mellitus, Objective - Vital Signs Vital signs: Vital Signs Temp 97.7 F 05/09/21 08:00 Pulse 70 05/09/21 08:00 Resp 16 05/09/21 08:00 BP 116/71 05/09/21 08:00 Pulse Ox 98 05/09/21 08:00 Intake & Output 05/08/21 05/09/21 05/09/21 18:59 06:59 18:59 Intake Total 360 Output Total 800 450 Balance -800 -90 Weight 101 kg 106 kg Intake: Oral 360 Output: Urine 350 300 Stool 450 150 Other: Voiding Method Indwelling Catheter Indwelling Catheter - Exam Alert and oriented x3, not in acute distress, malodorous, filthy HEENT: Normocephalic atraumatic, extra-ocular movements intact, pupils equal and reactive to light bilaterally, mucous membranes moist. Cardiovascular: Heart regular rate and rhythm Chest: Able to complete full sentences, no retractions, no tachypnea Abdomen: abdomen soft, non-tender, non-distended, no organomegaly, ostomy site to the left lower quadrant with surrounding erythema bloody stool in the bag no longer seen Musculoskeletal: Pulses present and equal in all extremities, no peripheral edema Motor: no focal deficits noted Neurological: CN II-XII grossly intact, no focal motor or sensory deficits noted Skin: Intact with no visualized rashes, no decubitus ulcers Psych: Normal affect and mood - Labs CBC & Chem 7: 05/09/21 07:14 05/09/21 07:14 Labs: Abnormal Lab Results - Last 24 Hours (Table) 05/06/21 05/08/21 05/08/21 Range/Units 16:31 11:53 16:48 RBC (4.30-5.90) m/uL Hgb (13.0-17.5) gm/dL Hct (39.0-53.0) % RDW (11.5-15.5) % Plt Count (150-450) k/uL Lymphocytes # (1.0-4.8) k/uL Sodium (137-145) mmol/L Creatinine (0.66-1.25) mg/dL Glucose (74-99) mg/dL POC Glucose (mg/dL) 182 H 182 H (75-99) mg/dL Calcium (8.4-10.2) mg/dL Total Protein (6.3-8.2) g/dL Albumin (3.5-5.0) g/dL RBC Folate 973 H (280 - 791) ng/mL 05/08/21 05/09/21 05/09/21 Range/Units 19:45 06:04 07:14 RBC 3.38 L (4.30-5.90) m/uL Hgb 10.6 L (13.0-17.5) gm/dL Hct 31.5 L (39.0-53.0) % RDW 16.3 H (11.5-15.5) % Plt Count 99 L (150-450) k/uL Lymphocytes # 0.9 L (1.0-4.8) k/uL Sodium (137-145) mmol/L Creatinine (0.66-1.25) mg/dL Glucose (74-99) mg/dL POC Glucose (mg/dL) 250 H 120 H (75-99) mg/dL Calcium (8.4-10.2) mg/dL Total Protein (6.3-8.2) g/dL Albumin (3.5-5.0) g/dL RBC Folate (280 - 791) ng/mL 05/09/21 Range/Units 07:14 RBC (4.30-5.90) m/uL Hgb (13.0-17.5) gm/dL Hct (39.0-53.0) % RDW (11.5-15.5) % Plt Count (150-450) k/uL Lymphocytes # (1.0-4.8) k/uL Sodium 126 L (137-145) mmol/L Creatinine 0.37 L (0.66-1.25) mg/dL Glucose 128 H (74-99) mg/dL POC Glucose (mg/dL) (75-99) mg/dL Calcium 7.7 L (8.4-10.2) mg/dL Total Protein 3.9 L (6.3-8.2) g/dL Albumin 2.0 L (3.5-5.0) g/dL RBC Folate (280 - 791) ng/mL Microbiology - Last 24 Hours (Table) 05/02/21 10:10 Blood Culture - Final Blood No Growth after 144 hours Assessment and Plan Assessment: Stomal bleed/ulceration around ileostomy bleeding stopped with local measures Sepsis likely due to cellulitis around ileostomy, patient to be continued on IV Levaquin as history of ALLERGY to penicillin, gently being rehydrated Cellulitis around the ileostomy anterior abdominal wall skin Severe and significant hyponatremia, continued to improve Intravascular volume depletion dehydration with prerenal Uncontrolled diabetes and hyperglycemia Plan: Overall plan includes continued to gently rehydrate the patient with normal saline Monitor labs closely IV Levaquin Sliding scale insulin I highly scale DVT and peptic ulcer disease prophylaxis Further plan of care as per clinical response of patient Time with Patient: Greater than 30
[2021-05-09] MEDS: allopurinoL 300 MG TAB PO SCH (10:21)
[2021-05-09] MEDS: FLUoxetine HCL 20 MG CAP PO SCH (10:21)
[2021-05-09] MEDS: ENOXAPARIN 30 MG/0.3 ML SYRINGE SQ SCH (10:21)
[2021-05-09] MEDS: DIGOXIN 125 MCG TAB PO SCH (10:21)
[2021-05-09] MEDS: PANTOPRAZOLE 40 MG/10 ML VIAL IV SCH (10:22)
[2021-05-09] MEDS: METOPROLOL TARTRATE 25 MG TAB PO SCH ×2 (10:22→21:00)
[2021-05-09] MEDS: SODIUM CHLORIDE TAB 1 GM TAB PO SCH ×2 (10:22→21:00)
--- NOTE | 2021-05-09 11:30 | P.PN ---
Subjective A shunt is seen in follow-up for hyponatremia. Sodium level 126. Oral intake better. Per nurse he did eat his breakfast this morning. Remains quite weak. Not a reliable historian. Vital signs are stable. General: The patient appeared well nourished and normally developed. HEENT: Head exam is unremarkable. LUNGS: Breath sounds decreased. HEART: Rate and Rhythm are regular. ABDOMEN: Soft, no distention. EXTREMITITES: No edema. Objective - Vital Signs Vital signs: Vital Signs Temp 97.7 F 05/09/21 08:00 Pulse 70 05/09/21 08:00 Resp 16 05/09/21 08:00 BP 116/71 05/09/21 08:00 Pulse Ox 98 05/09/21 08:00 Intake & Output 05/08/21 05/09/21 05/09/21 18:59 06:59 18:59 Intake Total 360 780 Output Total 800 450 Balance -800 -90 780 Weight 101 kg 106 kg Intake: Oral 360 780 Output: Urine 350 300 Stool 450 150 Other: Voiding Method Indwelling Catheter Indwelling Catheter Indwelling Catheter - Labs CBC & Chem 7: 05/09/21 07:14 05/09/21 07:14 Labs: Abnormal Lab Results - Last 24 Hours (Table) 05/06/21 05/08/21 05/08/21 Range/Units 16:31 11:53 16:48 RBC (4.30-5.90) m/uL Hgb (13.0-17.5) gm/dL Hct (39.0-53.0) % RDW (11.5-15.5) % Plt Count (150-450) k/uL Lymphocytes # (1.0-4.8) k/uL Sodium (137-145) mmol/L Creatinine (0.66-1.25) mg/dL Glucose (74-99) mg/dL POC Glucose (mg/dL) 182 H 182 H (75-99) mg/dL Calcium (8.4-10.2) mg/dL Total Protein (6.3-8.2) g/dL Albumin (3.5-5.0) g/dL RBC Folate 973 H (280 - 791) ng/mL 05/08/21 05/09/21 05/09/21 Range/Units 19:45 06:04 07:14 RBC 3.38 L (4.30-5.90) m/uL Hgb 10.6 L (13.0-17.5) gm/dL Hct 31.5 L (39.0-53.0) % RDW 16.3 H (11.5-15.5) % Plt Count 99 L (150-450) k/uL Lymphocytes # 0.9 L (1.0-4.8) k/uL Sodium (137-145) mmol/L Creatinine (0.66-1.25) mg/dL Glucose (74-99) mg/dL POC Glucose (mg/dL) 250 H 120 H (75-99) mg/dL Calcium (8.4-10.2) mg/dL Total Protein (6.3-8.2) g/dL Albumin (3.5-5.0) g/dL RBC Folate (280 - 791) ng/mL 05/09/21 Range/Units 07:14 RBC (4.30-5.90) m/uL Hgb (13.0-17.5) gm/dL Hct (39.0-53.0) % RDW (11.5-15.5) % Plt Count (150-450) k/uL Lymphocytes # (1.0-4.8) k/uL Sodium 126 L (137-145) mmol/L Creatinine 0.37 L (0.66-1.25) mg/dL Glucose 128 H (74-99) mg/dL POC Glucose (mg/dL) (75-99) mg/dL Calcium 7.7 L (8.4-10.2) mg/dL Total Protein 3.9 L (6.3-8.2) g/dL Albumin 2.0 L (3.5-5.0) g/dL RBC Folate (280 - 791) ng/mL Microbiology - Last 24 Hours (Table) 05/02/21 10:10 Blood Culture - Final Blood No Growth after 144 hours Assessment and Plan Plan: Assessment: 1. Hyponatremia due to poor solute intake. Sodium level 126 today. Urine osmolality 401 and on repeat 529. Urine sodium less than 10. TSH and serum cortisol normal. 2. Hyperkalemia on admission. Resolved. 3. Metabolic acidosis secondary to GI losses. Resolved. 4. History of ulcerative colitis. Has a colostomy. Plan: 1200 mL free water restriction. Encouraged oral intake. Added ensure. Stop normal saline. Maintain sodium chloride tabs. Continue to monitor. Samsca 15 mg once today. Check chest x-ray.
[2021-05-09 11:53] LABS: Glucose,Whole Blood 211 mg/dL (75-99)
[2021-05-09] MEDS ORDERED: TOLVAPTAN 15 MG 1/2 TABLET PO ONE (13:00)
--- NOTE | 2021-05-09 13:39 | P.PN ---
Progress Note - Text Progress Note Date: 05/09/21 Interval History: Patient was seen today for psychiatric follow-up regarding his depression. Dion leroy's nurse states that patient appears to be improving today and better overall. She states that he has not been a problem behaviorally and has been sleeping at nighttime. He is less sedated today. Patient was seen lying in his bed and acknowledged writer editor. She spoke very minimally however did follow some commands. He claims that his mood has been getting better and states that he feels "all right". He was noted to be taking his medications today and last night. He did not offer any complaints about his medications. Patient stopped responding to questions and was staring blankly. He denies any suicidal thoughts today. Mental Status Exam: General Appearance: Patient appears to be older than stated age is alert, mildly more. Patient appears to have poor hygiene and grooming wearing hospital gown with poor eye contact. Stares blankly at times Behavior: Patient is being in his chairwithout any agitated behavior. Staring blankly. Speech: [place], soft spoken. Mood/Affect: "A bit better" and affect is constricted. Suicidality/Homicidality: Denies Perceptions: Unable to assess Though content/process: [place], poverty of content. Memory and concentration: Unable to assess Judgment and insight: poor Assessment Depressive disorder unspecified Failure to thrive Plan: -At this time patient is not endorsing any more suicidal thoughts and is showing very mild improvement in his mood/symptoms. We'll continue with psychiatric treatment while on the medical floors however at this time primary team to look at rehab and placement instead of medical psychiatric inpatient bed. -Patient DOES NOT have decision making capacity at this time and is unable to reason through and communicate/appreciate the risks, benefits and alternatives to treatment. -Delirium precautions recommended with patient including - avoiding use of narcotics and DAYCARE MANAGER sedatives, limit anticholinergic medications when possible, frequent re-orientation, minimize use of restraints, open window shades during the day and close them at night -Would recommend the following medication changes/additions: Continue Remeron 45 mg daily at bedtime for mood/insomnia/appetite. We'll increase Prozac to 30 mg daily for mood/anxiety over the weekend. melatonin 3 mg daily at bedtime for sleep. -Continue with slow correction of patient's sodium and other electrolytes. Sodium was noted to be 126 today which was lower than yesterday. -fancy needleworker to look at placement in rehab at this time. -Communicated plan to patient's nurse -Will continue to follow only if requested over the weekend. -Please contact with any questions.
--- NOTE | 2021-05-09 15:18 | XR ---
EXAMINATION TYPE: XR chest 1V DATE OF EXAM: 05/09/2021 COMPARISON: 05/03/2021 INDICATION: Short of breath TECHNIQUE: Single frontal view of the chest is obtained. FINDINGS: The heart size is normal. The pulmonary vasculature is normal. Left diaphragm is not identified. Small left pleural effusion may be present. Lungs otherwise appear clear. Pacemaker overlies left chest. IMPRESSION: 1. Suggestion of small left pleural effusion
[2021-05-09 16:37] LABS: Glucose,Whole Blood 222 mg/dL (75-99)
[2021-05-09] MEDS: LEVOFLOXACIN 500MG-D5W PMX 500 MG in DEXTROSE/WATER 1 100ML.BAG IVPB SCH (17:22)
[2021-05-09 20:38] LABS: Glucose,Whole Blood 273 mg/dL (75-99)
[2021-05-09] MEDS: MIRTAZAPINE 15 MG TAB PO SCH (21:00)
[2021-05-09] MEDS: MELATONIN 3 MG TABLET PO SCH (21:00)
--- NOTE | 2021-05-10 01:15 | PN ---
PROGRESS NOTE This 70-year-old white male is more alert, giving appropriate answers, eating more food. Chest x-ray shows small left pleural effusion. He was seen by renal doctor and psychiatrist today. He did take his medicines last night and today, did not have any complaints. He is staring blankly but did respond to some questions. ASSESSMENT: 1. Depression. 2. Failure to thrive. 3. Cellulitis. 4. Wound infection, abdomen. 5. Hyponatremia at 126 is improved. His blood pressure 116/71, O2 98, temperature 97.7, pulse 70, respiratory rate 16-18. Hemoglobin is 10.5. 1. Hyperkalemia. 2. Metabolic acidosis. 3. Ulcerative colitis. 4. Colostomy, ileostomy. 5. Multiple skin purpura from lying . 6. 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 Continue with infectious disease recommendations prior to discharge to a senior living. MMODL / IJN: [id number] /
[2021-05-10 06:12] LABS: Glucose,Whole Blood 159 mg/dL (75-99)
[2021-05-10] MEDS: INSULIN ASPART (NovoLOG) 100 UNIT/ML VIAL SQ SCH ×4 (06:16→20:48)
[2021-05-10] MEDS: FERROUS SULFATE 325 MG TAB PO SCH ×2 (06:17→16:58)
[2021-05-10] MEDS: PANTOPRAZOLE 40 MG TABLET PO SCH (06:17)
[2021-05-10] MEDS: SODIUM CHLORIDE TAB 1 GM TAB PO SCH ×2 (07:41→20:41)
[2021-05-10] MEDS: DIGOXIN 125 MCG TAB PO SCH (07:41)
[2021-05-10] MEDS: ENOXAPARIN 30 MG/0.3 ML SYRINGE SQ SCH (07:42)
[2021-05-10] MEDS: allopurinoL 300 MG TAB PO SCH (07:42)
[2021-05-10] MEDS: METOPROLOL TARTRATE 25 MG TAB PO SCH ×2 (07:42→20:41)
[2021-05-10] MEDS ORDERED: FLUoxetine HCL 20 MG CAP PO ONE (09:00)
[2021-05-10 09:01] LABS: Anisocytosis Slight; Basophils % (A) 0 %; Eosinophils # (A) 0.1 k/uL (0-0.7); Eosinophils % (A) 1 %; HCT 35.1 % (39.0-53.0); HGB 11.8 gm/dL (13.0-17.5); Lymphocytes # (A) 0.8 k/uL (1.0-4.8); Lymphocytes % (A) 8 %; MCH 31.2 pg (25.0-35.0); MCHC 33.7 g/dL (31.0-37.0); MCV 92.4 fL (80.0-100.0); Mean Platelet Volume 8.2; Monocytes # (A) 0.6 k/uL (0-1.0); Monocytes % (A) 6 %; Neutrophils % (A) 83 %; Platelet Count 124 k/uL (150-450); Poikilocytosis Slight; RBC 3.79 m/uL (4.30-5.90); RDW 16.7 % (11.5-15.5); WBC 9.6 k/uL (3.8-10.6)
--- NOTE | 2021-05-10 09:12 | P.PN ---
Subjective A shunt is seen in follow-up for hyponatremia. Sodium level 126 yesterday. Oral intake improving. Remains quite weak. Denies chest pain or shortness of breath. Blood pressure stable. Vital signs are stable. General: The patient appeared well nourished and normally developed. HEENT: Head exam is unremarkable. LUNGS: Breath sounds decreased. HEART: Rate and Rhythm are regular. ABDOMEN: Soft, no distention. EXTREMITITES: No edema. Objective - Vital Signs Vital signs: Vital Signs Temp 98.1 F 05/10/21 07:45 Pulse 70 05/10/21 07:45 Resp 19 05/10/21 07:45 BP 116/56 05/10/21 07:45 Pulse Ox 94 L 05/10/21 07:45 Intake & Output 05/09/21 05/10/21 05/10/21 18:59 06:59 18:59 Intake Total 1800 Output Total 270 2200 Balance 1530 -2200 Weight 152 kg Intake: Oral 1800 Output: Urine 2000 Stool 270 200 Other: Voiding Method Indwelling Catheter Indwelling Catheter - Labs CBC & Chem 7: 05/10/21 08:17 05/09/21 07:14 Labs: Abnormal Lab Results - Last 24 Hours (Table) 05/09/21 05/09/21 05/09/21 Range/Units 11:51 16:36 20:34 RBC (4.30-5.90) m/uL Hgb (13.0-17.5) gm/dL Hct (39.0-53.0) % RDW (11.5-15.5) % Plt Count (150-450) k/uL Neutrophils # (1.3-7.7) k/uL Lymphocytes # (1.0-4.8) k/uL POC Glucose (mg/dL) 211 H 222 H 273 H (75-99) mg/dL 05/10/21 05/10/21 Range/Units 06:02 08:17 RBC 3.79 L (4.30-5.90) m/uL Hgb 11.8 L (13.0-17.5) gm/dL Hct 35.1 L (39.0-53.0) % RDW 16.7 H (11.5-15.5) % Plt Count 124 L (150-450) k/uL Neutrophils # 8.0 H (1.3-7.7) k/uL Lymphocytes # 0.8 L (1.0-4.8) k/uL POC Glucose (mg/dL) 159 H (75-99) mg/dL Assessment and Plan Plan: Assessment: 1. Hyponatremia due to poor solute intake. Sodium level 126 yesterday. Urine osmolality 401 and on repeat 529. Urine sodium less than 10. TSH and serum cortisol normal. 2. Hyperkalemia on admission. Resolved. 3. Metabolic acidosis secondary to GI losses. Resolved. 4. History of ulcerative colitis. Has a colostomy. Plan: 1200 mL free water restriction. Encouraged oral intake. Added ensure. Off IV fluids. Maintain sodium chloride tabs. Continue to monitor. Status post [facility] May 09.
[2021-05-10 09:27] LABS: ALT 26 U/L (4-49); AST 28 U/L (17-59); African American GFR (CKD) >90 (>60 ml/min/1.73 sqM); Albumin 2.2 g/dL (3.5-5.0); Alkaline Phosphatase 69 U/L (38-126); Anion Gap 3 mmol/L; Blood Urea Nitrogen 13 mg/dL (9-20); Calcium 8.3 mg/dL (8.4-10.2); Carbon Dioxide 25 mmol/L (22-30); Chloride 102 mmol/L (98-107); Glucose 178 mg/dL (74-99); Magnesium 1.6 mg/dL (1.6-2.3); Non-African American GFR(CKD) >90 (>60 ml/min/1.73 sqM); Potassium 4.5 mmol/L (3.5-5.1); Sodium 130 mmol/L (137-145); Total Bilirubin 0.5 mg/dL (0.2-1.3); Total Protein 4.2 g/dL (6.3-8.2)
[2021-05-10 11:46] LABS: Glucose,Whole Blood 185 mg/dL (75-99)
[2021-05-10] MEDS: Acetaminophen-Codeine 300-30mg TAB PO PRN ×2 (11:51→22:38)
--- NOTE | 2021-05-10 14:17 | PN ---
PROGRESS NOTE ADDENDUM: Paroxysmal atrial fibrillation. MMODL / IJN: [id number] /
[2021-05-10 17:02] LABS: Glucose,Whole Blood 243 mg/dL (75-99)
[2021-05-10] MEDS: MELATONIN 3 MG TABLET PO SCH (20:41)
[2021-05-10] MEDS: MIRTAZAPINE 15 MG TAB PO SCH (20:41)
[2021-05-10 20:48] LABS: Glucose,Whole Blood 209 mg/dL (75-99)
--- NOTE | 2021-05-11 00:56 | PN ---
PROGRESS NOTE 70-year-old white male who is more alert today. He is eating a bit better with help. He will get PT/OT. Blood pressure has been controlled. Started on diabetes mellitus medications, cardiac medicines. Physical therapy is going to start working with him. Hemoglobin 11.8, white count 9.6, sodium 130, potassium 4.5, sugars in the high 100 to low 200s, albumin is 2.2. Prognosis guarded. Continue current treatments. Possible discharge to rehab center soon pending treatment. MMODL / IJN: [id number] /
--- NOTE | 2021-05-11 01:09 | P.CONS ---
History of Present Illness - Reason for Consult Consult date: 05/10/21 multiple pressure ulcers Requesting physician: Micah Moy - Chief Complaint weakness x few days - History of Present Illness History of present illness : Patient is 70-year male presenting to the hospital more than a week ago on 05/02/2021 with concern for some redness around his colostomy site EMS reported the patient was very filthy and disheveled concern for bedbugs with the symptom patient was evaluated by ER physician on presentation to the hospital patient was afebrile and no fever has been for the last 9 days patient did have initially elevated white count however the white count subsequently normalized patient was noticed to have electrolyte abn ormalities for the patient being monitored by nephrology UA was negative river PCR was negative blood culture has been negative infectious disease was consulted last evening multiple wounds with the skin breakdown apparently the patient did have a pressure ulcer to the sacral area that has been present on admission currently being treated with a local protective dressing patient also have a petechial rash to mostly left side of his body patient himself evaluated good historian however not specifically denies any significant pain to his sacral on left side of the body patient currently denies any chest pain shortness breath or cough no abdominal pain no diarrhea no nausea no vomiting Review of system: Positive point has been mentioned in HPI complete review could not be obtained because of underlying mental status Past medical history : Reviewed, documented below Past surgical history : Reviewed, documented below Social history: Reviewed, documented below Medications: Reviewed, as documented below EXAMINATION: Vital sigans= Reviewed and documented below GENERAL DESCRIPTION: Elderly male lying in bed, no distress. No tachypnea or accessory muscle of respiration use. HEENT: Shows Pallor , no scleral icterus. Oral mucous membrane is dry. NECK: Trachea central, no thyromegaly. LUNGS: Unlabored breathing. Decreased breath sound at the base. No wheeze or crackle. HEART: S1, S2, regular rate and rhythm. ABDOMEN: Soft, no tenderness , guarding or rigidity EXTREMITIES: No edema of feet. SKIN: No rash, no masses palpable. Patient with deep tissue injury to the sacral area with no evidence of any secondary cellulitis and did have a stage II ulcer to the left gluteal area with no cellulitis NEUROLOGICAL: The patient is awake, alert, oriented x1, mood and affect normal. LABS AND RADIOLOGY: Reviewed results see below Assessment : 1-patient with a deep tissue injury to the sacral area with evidence of any second cellulitis treated with a local treatment 2-left gluteal stage II pressure ulcer with no cellulitis 3-petechial rash to the left side of body more likely pressure related Plan: 1-skin protective cream to the sacral pressure ulcer and keep the area of the pressure 2-Aquacel silver dressing to the left gluteal area change every 48 hour 3-no need for systemic antibiotic therapy We will follow on clinical condition and cultures to further adjust medication if needed Thank you for this consultation we will follow the patient along with you Past Medical History Past Medical History: Atrial Fibrillation, Chest Pain / Angina, Heart Failure, Diabetes Mellitus, Deep Vein Thrombosis (DVT), Hypertension, Renal Disease Additional Past Medical History / Comment(s): Nonischemic cardiomyopathy, nonsustained vtach, IDDM type II, 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 History of Any Multi-Drug Resistant Organisms: None Reported Past Surgical History: AICD, Appendectomy, Back Surgery, Cholecystectomy, Heart Catheterization, Hernia Repair, Tonsillectomy Additional Past Surgical History / Comment(s): Ileostomy and a revision, BiV-ICD implanted in 2006 with gen change 2011, cardiac cath-normal, EGD/colonoscopies, cystoscopy, lithotripsies, bilateral ureteral stents, cervical fusion with plate, R inguinal hernia repair. Past Anesthesia/Blood Transfusion Reactions: No Reported Reaction Additional Past Anesthesia/Blood Transfusion Reaction / Comm: Limited ROM with neck. Type of Cardiac Device: AICD Device Placement Date:: 2006 Smoking Status: Never smoker - Past Family History Father Additional Family Medical History / Comment(s): Father of alcoholism. Mother Family Medical History: Hypertension Additional Family Medical History / Comment(s): Diverticular disease. Mother in her 80's. Medications and Allergies Home Medications Medication Instructions Recorded Confirmed Type Mirtazapine [Remeron] 45 mg PO DIRECTED 08/06/16 05/02/21 History allopurinoL [Zyloprim] 300 mg PO DIRECTED 08/06/16 05/02/21 History diazePAM [Valium] 5 mg PO DIRECTED 08/06/16 05/02/21 History Insuln Asp Prt/Insulin Aspart 1 dose SQ DIRECTED 02/21/18 05/02/21 History [NovoLOG MIX 70-30 VIAL] Digoxin [Lanoxin] 62.5 mcg PO DIRECTED 04/23/19 05/02/21 History Acetaminophen with Codeine 1 tab PO DIRECTED 05/02/21 05/02/21 History [Tylenol with Codeine #4 Tablet] Ferrous Sulfate [Feosol] 325 mg PO DIRECTED 05/02/21 05/02/21 History Metoprolol Tartrate [Lopressor] 50 mg PO DIRECTED 05/02/21 05/02/21 History Allergies Allergy/AdvReac Type Severity Reaction Status Date / Time Iodine and Iodide Containing Allergy Swelling Verified 05/02/21 13:38 Produc of Tongue Penicillins Allergy Rash/Hives Verified 05/02/21 13:38 Physical Exam Vitals: Vital Signs Temp Pulse Resp BP Pulse Ox 05/10/21 20:40 97.9 F 70 18 130/71 96 05/10/21 16:00 98.1 F 77 16 135/62 94 L 05/10/21 14:00 73 18 05/10/21 11:56 98.5 F 73 18 103/51 95 05/10/21 08:00 70 19 05/10/21 07:45 98.1 F 70 19 116/56 94 L 05/10/21 03:45 99.1 F 70 16 101/63 94 L Intake and Output 05/10/21 05/10/21 05/11/21 14:59 22:59 06:59 Intake Total 0 Output Total 50 475 Balance -50 -475 Intake: Oral 0 Output: Urine 200 Stool 50 275 Other: Voiding Method Indwelling Catheter Indwelling Catheter Results CBC & Chem 7: 05/10/21 08:17 05/10/21 08:17 Labs: Abnormal Lab Results - Last 24 Hours (Table) 05/10/21 05/10/21 05/10/21 Range/Units 06:02 08:17 08:17 RBC 3.79 L (4.30-5.90) m/uL Hgb 11.8 L (13.0-17.5) gm/dL Hct 35.1 L (39.0-53.0) % RDW 16.7 H (11.5-15.5) % Plt Count 124 L (150-450) k/uL Neutrophils # 8.0 H (1.3-7.7) k/uL Lymphocytes # 0.8 L (1.0-4.8) k/uL Sodium 130 L (137-145) mmol/L Creatinine 0.51 L (0.66-1.25) mg/dL Glucose 178 H (74-99) mg/dL POC Glucose (mg/dL) 159 H (75-99) mg/dL Calcium 8.3 L (8.4-10.2) mg/dL Total Protein 4.2 L (6.3-8.2) g/dL Albumin 2.2 L (3.5-5.0) g/dL 05/10/21 05/10/21 05/10/21 Range/Units 11:45 16:59 20:47 RBC (4.30-5.90) m/uL Hgb (13.0-17.5) gm/dL Hct (39.0-53.0) % RDW (11.5-15.5) % Plt Count (150-450) k/uL Neutrophils # (1.3-7.7) k/uL Lymphocytes # (1.0-4.8) k/uL Sodium (137-145) mmol/L Creatinine (0.66-1.25) mg/dL Glucose (74-99) mg/dL POC Glucose (mg/dL) 185 H 243 H 209 H (75-99) mg/dL Calcium (8.4-10.2) mg/dL Total Protein (6.3-8.2) g/dL Albumin (3.5-5.0) g/dL
[2021-05-11 06:27] LABS: African American GFR (CKD) >90 (>60 ml/min/1.73 sqM); Anion Gap 2 mmol/L; Blood Urea Nitrogen 10 mg/dL (9-20); Calcium 7.9 mg/dL (8.4-10.2); Carbon Dioxide 26 mmol/L (22-30); Chloride 102 mmol/L (98-107); Glucose 128 mg/dL (74-99); Magnesium 1.6 mg/dL (1.6-2.3); Non-African American GFR(CKD) >90 (>60 ml/min/1.73 sqM); Potassium 3.9 mmol/L (3.5-5.1); Sodium 130 mmol/L (137-145)
[2021-05-11 07:41] LABS: Glucose,Whole Blood 140 mg/dL (75-99)
[2021-05-11] MEDS: PANTOPRAZOLE 40 MG TABLET PO SCH (08:08)
[2021-05-11] MEDS: SODIUM CHLORIDE TAB 1 GM TAB PO SCH ×2 (08:08→20:46)
[2021-05-11] MEDS: INSULIN ASPART (NovoLOG) 100 UNIT/ML VIAL SQ SCH ×4 (08:08→20:35)
[2021-05-11] MEDS: allopurinoL 300 MG TAB PO SCH (08:08)
[2021-05-11] MEDS: FLUoxetine HCL 10 MG CAP PO SCH (08:08)
[2021-05-11] MEDS: ENOXAPARIN 30 MG/0.3 ML SYRINGE SQ SCH (08:08)
[2021-05-11] MEDS: METOPROLOL TARTRATE 25 MG TAB PO SCH ×2 (08:08→20:45)
[2021-05-11] MEDS: FERROUS SULFATE 325 MG TAB PO SCH ×2 (08:08→17:39)
[2021-05-11] MEDS: Acetaminophen-Codeine 300-30mg TAB PO PRN (08:59)
[2021-05-11] MEDS: DIGOXIN 125 MCG TAB PO SCH (10:41)
--- NOTE | 2021-05-11 10:41 | P.PN ---
Subjective A shunt is seen in follow-up for hyponatremia. Sodium level 130. Oral intake improving. Remains quite weak. Denies chest pain or shortness of breath. Blood pressure stable. Vital signs are stable. General: The patient appeared well nourished and normally developed. HEENT: Head exam is unremarkable. LUNGS: Breath sounds decreased. HEART: Rate and Rhythm are regular. ABDOMEN: Soft, no distention. EXTREMITITES: No edema. Objective - Vital Signs Vital signs: Vital Signs Temp 97.7 F 05/11/21 04:29 Pulse 62 05/11/21 08:10 Resp 18 05/11/21 04:29 BP 112/59 05/11/21 04:29 Pulse Ox 95 05/11/21 04:29 Intake & Output 05/10/21 05/11/21 05/11/21 18:59 06:59 18:59 Intake Total 0 400 Output Total 50 1175 Balance -50 -775 Intake: Oral 0 400 Output: Urine 700 Stool 50 475 Other: Voiding Method Indwelling Catheter Indwelling Catheter Indwelling Catheter - Labs CBC & Chem 7: 05/10/21 08:17 05/11/21 05:33 Labs: Abnormal Lab Results - Last 24 Hours (Table) 05/10/21 05/10/21 05/10/21 Range/Units 11:45 16:59 20:47 Sodium (137-145) mmol/L Creatinine (0.66-1.25) mg/dL Glucose (74-99) mg/dL POC Glucose (mg/dL) 185 H 243 H 209 H (75-99) mg/dL Calcium (8.4-10.2) mg/dL 05/11/21 05/11/21 Range/Units 05:33 07:40 Sodium 130 L (137-145) mmol/L Creatinine 0.49 L (0.66-1.25) mg/dL Glucose 128 H (74-99) mg/dL POC Glucose (mg/dL) 140 H (75-99) mg/dL Calcium 7.9 L (8.4-10.2) mg/dL Assessment and Plan Plan: Assessment: 1. Hyponatremia due to poor solute intake. Sodium level 130. Urine osmolality 401 and on repeat 529. Urine sodium less than 10. TSH and serum cortisol normal. 2. Hyperkalemia on admission. Resolved. 3. Metabolic acidosis secondary to GI losses. Resolved. 4. History of ulcerative colitis. Has a colostomy. Plan: 1200 mL free water restriction. Encouraged oral intake. Added ensure. Off IV fluids. Maintain sodium chloride tabs. Continue to monitor. Status post [facility] May 09.
--- NOTE | 2021-05-11 10:55 | P.PN ---
Subjective Progress Note Date: 05/11/21 Principal diagnosis: Upper GI bleed Sepsis likely due to cellulitis around ileostomy, patient will be started on IV cefazolin gently being rehydrated Cellulitis around the tracheostomy anterior abdominal wall skin Severe and significant hyponatremia Intravascular volume depletion dehydration with prerenal acidemia Uncontrolled diabetes and hyperglycemia 05/11/2021, patient seen eval examined during the rounds labs reviewed medications reviewed care plan discussed, trace status remained stable, breathing comfortably, labs from today reviewed sodium is up to 1:30, renal f unction within normal limit sugars improved, patient is back on anticoagulation for DVT prophylaxis, due to hypomagnesemia getting replacement of magnesium 05/09/2021, patient seen eval examined during the rounds labs reviewed medications reviewed Discussed, Respiratory Status Remains Stable Denies Any Chest Pain Mild Shortness of Breath Is Present, Recommend to Obtain PT OT Evaluation, Increase Activity As Tolerated, Patient Has Been Placed on Regular Diet, labs from today reviewed hemoglobin and hematocrit remain stable 06/08, sodium is up to 126, BUN/creatinine remains stable, 05/07/2021, patient seen eval examined during the rounds labs reviewed medications reviewed awake alert breathing comfortably, denies any chest pain, patient denies any cough or sputum production, his labs from today reviewed hemoglobin is 10.5 white cell count is 7900, sodium is up to 127, BUN/creatinine 14 and 0.43, blood sugar improved to 154, albumin remains low 2.0, patient remains on DVT prophylaxis with digoxin to control the heart rate, sliding scale insulin and Levaquin for cellulitis and IV Protonix, patient is status post a right-sided midline 05/06/2021, patient seen eval examined during rounds labs reviewed medications reviewed more alert and awake, patient is been evaluated by neurology, patient has significant stomal ulceration and bleeding which appeared as a GI bleeding stopped with local measures, general surgery is following, hemoglobin remained stable at 11.7, sodium is up to 124, renal functions normal, patient more awake and alert now 05/04/2021, patient seen eval examined during the rounds labs reviewed medications reviewed care plan discussed with the staff and patient at length, respiratory status due to is stable, sodium is improving sleep, patient is now on bicarb drip patient is awake and alert, patient noted to have a bloody fecal material in the ileum last me back, general surgery has been consulted, hemoglobin however remains stable, patient remains on Protonix, labs reviewed white cell count is stable 16,000 with hemoglobin and hematocrit is 13 and 36, platelet count is 111 stabilize, sodium is up to 08/27/2019 and 0.49 and same medication shinjohn Lovenox has been on hold now getting IV Levaquin ALLERGIES penicillin, Patient seen eval examined in ICU currently awake but cannot give him detailed history, lives by himself at home however family members noted erythematous redness around ostomy site, patient was in very disheveled condition with the concern of bed bugs unable to obtain detailed history, however patient has a history of extensive multiple abdominal surgery with absence of colon and presence of ileostomy, labs are significant for leukocytosis with WBC count 22,000, sodium was only 112, potassium 7.4, repeat was 6.5, BUN is 38, coated was negative chest x-ray unremarkable urinalysis was negative as well computed tomography scan of the abdominal and pelvis no acute process seen, blood cultures are been obtained, nephrology consultation obtained due to significant hyponatremia, patient had a liter of normal saline and D ecadron, repeat labs revealed sodium 115 potassium 5.4. Crit 34.81, lactic acid 2.8, Past medical history significant for dementia Alzheimer's disease, mood disorder depression, gout, hypertension hypertensive cardiovascular disease, insulin requiring diabetes mellitus, Objective - Vital Signs Vital signs: Vital Signs Temp 97.7 F 05/11/21 04:29 Pulse 62 05/11/21 08:10 Resp 18 05/11/21 04:29 BP 112/59 05/11/21 04:29 Pulse Ox 95 05/11/21 04:29 Intake & Output 05/10/21 05/11/21 05/11/21 18:59 06:59 18:59 Intake Total 0 400 Output Total 50 1175 Balance -50 -775 Intake: Oral 0 400 Output: Urine 700 Stool 50 475 Other: Voiding Method Indwelling Catheter Indwelling Catheter Indwelling Catheter - Exam Alert and oriented x3, not in acute distress, malodorous, filthy HEENT: Normocephalic atraumatic, extra-ocular movements intact, pupils equal and reactive to light bilaterally, mucous membranes moist. Cardiovascular: Heart regular rate and rhythm Chest: Able to complete full sentences, no retractions, no tachypnea Abdomen: abdomen soft, non-tender, non-distended, no organomegaly, ostomy site to the left lower quadrant with surrounding erythema bloody stool in the bag no longer seen Musculoskeletal: Pulses present and equal in all extremities, no peripheral edema Motor: no focal deficits noted Neurological: CN II-XII grossly intact, no focal motor or sensory deficits noted Skin: Intact with no visualized rashes, no decubitus ulcers Psych: Normal affect and mood - Labs CBC & Chem 7: 05/10/21 08:17 05/11/21 05:33 Labs: Abnormal Lab Results - Last 24 Hours (Table) 05/10/21 05/10/21 05/10/21 Range/Units 11:45 16:59 20:47 Sodium (137-145) mmol/L Creatinine (0.66-1.25) mg/dL Glucose (74-99) mg/dL POC Glucose (mg/dL) 185 H 243 H 209 H (75-99) mg/dL Calcium (8.4-10.2) mg/dL 05/11/21 05/11/21 Range/Units 05:33 07:40 Sodium 130 L (137-145) mmol/L Creatinine 0.49 L (0.66-1.25) mg/dL Glucose 128 H (74-99) mg/dL POC Glucose (mg/dL) 140 H (75-99) mg/dL Calcium 7.9 L (8.4-10.2) mg/dL Assessment and Plan Assessment: Electrolyte imbalance with hypomagnesemia and hyponatremia Stomal bleed/ulceration around ileostomy bleeding stopped with local measures Sepsis likely due to cellulitis around ileostomy, patient to be continued on IV Levaquin as history of ALLERGY to penicillin, gently being rehydrated Cellulitis around the ileostomy anterior abdominal wall skin Intravascular volume depletion dehydration with prerenal Uncontrolled diabetes and hyperglycemia Plan: Overall plan includes continued to gently rehydrate the patient with normal saline Monitor labs closely Monitor observe off of IV Levaquin Sliding scale insulin I highly scale DVT and peptic ulcer disease prophylaxis Further plan of care as per clinical response of patient Time with Patient: Greater than 30
[2021-05-11] MEDS: MAGNESIUM SULFATE-D5W PMX 1 GM in DEXTROSE/WATER 1 100ML.BAG IVPB SCH ×2 (11:30→12:37)
[2021-05-11 11:32] LABS: Glucose,Whole Blood 159 mg/dL (75-99)
[2021-05-11 14:41] LABS: Glucose,Whole Blood 135 mg/dL (75-99)
--- NOTE | 2021-05-11 16:25 | US ---
EXAMINATION TYPE: US venous doppler duplex UE LT DATE OF EXAM: 05/11/2021 COMPARISON: NONE CLINICAL HISTORY: R/O DVT. Left arm swelling SIDE PERFORMED: Left Left Arm: Very limited exam due to large pt body habitus, immobile, scanning left side of pt's body portable Left proximal subclavian, axillary, basilic, radial, and ulnar veins not visualized due to large pt b tiburcio habitus and immobility/ Visualized portions appeared negative for DVT or DVT IMPRESSION: Limited exam shows no evidence of deep vein thrombosis in the left arm. There is patency of the subcl hai vein..
[2021-05-11 17:35] LABS: Glucose,Whole Blood 137 mg/dL (75-99)
--- NOTE | 2021-05-11 18:13 | PN ---
PROGRESS NOTE DATE OF SERVICE: 05/11/2021 REASON FOR FOLLOWUP: Multiple pressure ulcers. INTERVAL HISTORY: The patient is currently afebrile. He is feeling slightly more awake and alert. He is breathing comfortably. Denies any chest pain, cough. No abdominal pain or diarrhea. PHYSICAL EXAMINATION: Blood pressure 122/72 with a pulse of 78, temperature 98.1. He is 95% on room air. General description is an elderly male lying in bed in no distress. Respiratory system: Unlabored breathing, clear to auscultation anteriorly. Heart S1, S2. Regular rate and rhythm. Abdomen soft. No tenderness. Extremities, no edema of the feet. LABS: Creatinine 0.49. Cultures have been negative. DIAGNOSTIC IMPRESSION AND PLAN: 1. Patient with unstageable sacral pressure ulcer with more of a deep tissue injury. Plan is at this point, dry protective dressing keep the area off pressure. 2. Left gluteal stage II pressure ulcer. Local care with dry Aquacel Silver dressing and keep the area off the pressure. MMODL / IJN: [id number] /
[2021-05-11 20:12] LABS: Glucose,Whole Blood 124 mg/dL (75-99)
[2021-05-11] MEDS: MIRTAZAPINE 15 MG TAB PO SCH (20:45)
[2021-05-11] MEDS: MELATONIN 3 MG TABLET PO SCH (20:45)
--- NOTE | 2021-05-11 21:18 | P.PN ---
Progress Note - Text Progress Note Date: 05/11/21 Presenting complaint: Tired Interval history: I'm rounding today for Dr. Micah Moy. May 11: Laying in bed. Tired. Oral intake limited. Eating about 25%. On May. Her first patient did receive Samsca. He is on fluid restriction. Patient doesn't speak much. Appears to be comfortable. Slow to answer questions. Review of systems: Was done for constitutional, cardiovascular, GI, pulmonary. relevant finding as above Active Medications Acetaminophen/Codeine Phosphate (Acetaminophen-Codeine 300-30mg Tab) 1 each PO Q8HR PRN PRN Reason: Pain Last Admin: 05/11/21 08:59 Dose: 1 each Documented by: Allopurinol (Allopurinol 300 Mg Tab) 300 mg PO [facility]ILY [facility] Last Admin: 05/11/21 08:08 Dose: 300 mg Documented by: Digoxin (Digoxin 125 Mcg Tab) 62.5 mcg PO [facility]ILY [facility] Last Admin: 05/11/21 10:41 Dose: 62.5 mcg Documented by: Enoxaparin Sodium (Enoxaparin 30 Mg/0.3 Ml Syringe) 30 mg SQ [facility]ILY [facility] Last Admin: 05/11/21 08:08 Dose: 30 mg Documented by: Ferrous Sulfate (Ferrous Sulfate 325 Mg Tab) 325 mg PO BID-W/[facility] Last Admin: 05/11/21 17:39 Dose: 325 mg Documented by: Fluoxetine HCl (Fluoxetine Hcl 10 Mg Cap) 30 mg PO [facility]ILY [facility] Last Admin: 05/11/21 08:08 Dose: 30 mg Documented by: Insulin Aspart (Insulin Aspart (Novolog) 100 Unit/Ml Vial) 0 unit SQ [facility]; Protocol Last Admin: 05/11/21 20:35 Dose: Not Given Documented by: Melatonin (Melatonin 3 Mg Tablet) 3 mg PO HS [facility] Last Admin: 05/11/21 20:45 Dose: 3 mg Documented by: Metoprolol Tartrate (Metoprolol Tartrate 25 Mg Tab) 25 mg PO BID [facility] Last Admin: 05/11/21 20:45 Dose: 25 mg Documented by: Mirtazapine (Mirtazapine 15 Mg Tab) 45 mg PO HS [facility] Last Admin: 05/11/21 20:45 Dose: 45 mg Documented by: Miscellaneous Information (Magnesium Replacement Protocol 1 Each Misc) 1 each MISCELLANE DAILY PRN; Protocol PRN Reason: Per Protocol Naloxone HCl (Naloxone 0.4 Mg/Ml 1 Ml Vial) 0.2 mg IV Q2M PRN PRN Reason: Opioid Reversal Pantoprazole Sodium (Pantoprazole 40 Mg Tablet) 40 mg PO [facility] Last Admin: 05/11/21 08:08 Dose: 40 mg Documented by: Sodium Chloride (Sodium Chloride Tab 1 Gm Tab) 1 gm PO BID [facility] Last Admin: 05/11/21 20:46 Dose: 1 gm Documented by: On examination: VITAL SIGNS: 97.7, 64, 20, 102.49, 98% on 2 L GENERAL APPEARANCE: Laying in bed, tired, awake. Lower extremity boots. Patient is able to lift both his arms HEENT: Normal external appearance of nose and ear. Oral cavity normal EYES: Pupils equal. Conjunctiva normal. NECK: JVD unable to assess. Mass not palpable. RESPIRATORY: Respiratory effort normal. Lungs decreased breath sounds CARDIOVASCULAR: First and second sounds normal. Some edema. ABDOMEN: Several scars. No tenderness. Colostomy PSYCHIATRY: Answering occasional simple questions INVESTIGATIONS, reviewed in the clinical context: Sodium 1:30 potassium 3.9 creatinine 0.49 Doppler: Negative for DVT Assessment and plan: -Hyponatremia due to poor solute intake. Fluid restriction. Did receive Samsca on May 09 -Stomal bleeding/ulcerated around ileostomy. Bleeding was stopped with local measures -Unstageable sacral pressure ulcer. Dry protective dressing. -Left gluteal stage II pressure ulcer Dry Aquacel silver dressing -Depressive disorder unspecified Followed by psychiatry -History of ulcerative colitis with total abdominal colectomy with end ileostomy Being followed by ostomy nurse -Metabolic encephalopathy from hyponatremia Follow clinically -Chronic deconditioning from patient being bedbound since September 2020. -Biventricular ICD -Diabetes mellitus type 2, chronically on insulin Accu-Cheks being followed Continue current medication treatment plan. Wound care. Pressure of the wounds. Fluid restriction. Electrolyte sitting followed. Patient was followed by multiple consultants.
[2021-05-12 07:10] LABS: Glucose,Whole Blood 133 mg/dL (75-99)
[2021-05-12] MEDS: INSULIN ASPART (NovoLOG) 100 UNIT/ML VIAL SQ SCH ×4 (08:34→21:02)
[2021-05-12] MEDS: FLUoxetine HCL 10 MG CAP PO SCH (08:34)
[2021-05-12] MEDS: SODIUM CHLORIDE TAB 1 GM TAB PO SCH ×2 (08:35→21:01)
[2021-05-12] MEDS: FERROUS SULFATE 325 MG TAB PO SCH ×2 (08:35→17:23)
[2021-05-12] MEDS: METOPROLOL TARTRATE 25 MG TAB PO SCH ×2 (08:35→21:01)
[2021-05-12] MEDS: allopurinoL 300 MG TAB PO SCH (08:35)
[2021-05-12] MEDS: PANTOPRAZOLE 40 MG TABLET PO SCH (08:36)
[2021-05-12] MEDS: ENOXAPARIN 30 MG/0.3 ML SYRINGE SQ SCH (08:36)
[2021-05-12] MEDS: DIGOXIN 125 MCG TAB PO SCH (08:36)
--- NOTE | 2021-05-12 09:48 | P.PN ---
Subjective Progress Note Date: 05/12/21 Principal diagnosis: Upper GI bleed Sepsis likely due to cellulitis around ileostomy, patient will be started on IV cefazolin gently being rehydrated Cellulitis around the tracheostomy anterior abdominal wall skin Severe and significant hyponatremia Intravascular volume depletion dehydration with prerenal acidemia Uncontrolled diabetes and hyperglycemia 05/12/2021, patient seen eval examined during the rounds labs reviewed medications reviewed care plan discussed, respiratory status remained stable, get short of breath however on activity and exertion, has been on sodium replacement, sodium continued to improve mag is improved patient had ultrasound of the left arm no DVT identified, patient has been on DVT prophylaxis, 05/11/2021, patient seen eval examined during the rounds labs reviewed medications reviewed care plan discussed, trace status remained stable, breathing comfortably, labs from today reviewed sodium is up to 1:30, renal function within normal limit sugars improved, patient is back on anticoagulation for DVT prophylaxis, due to hypomagnesemia getting replacement of magnesium 05/09/2021, patient seen eval examined during the rounds labs reviewed medications reviewed Discussed, Respiratory Status Remains Stable Denies Any Chest Pain Mild Shortness of Breath Is Present, Recommend to Obtain PT OT Evaluation, Increase Activity As Tolerated, Patient Has Been Placed on Regular Diet, labs from today reviewed hemoglobin and hematocrit remain stable 06/08, sodium is up to 126, BUN/creatinine remains stable, 05/07/2021, patient seen eval examined during the rounds labs reviewed medications reviewed awake alert breathing comfortably, denies any chest pain, patient denies any cough or sputum production, his labs from today reviewed hemo globin is 10.5 white cell count is 7900, sodium is up to 127, BUN/creatinine 14 and 0.43, blood sugar improved to 154, albumin remains low 2.0, patient remains on DVT prophylaxis with digoxin to control the heart rate, sliding scale insulin and Levaquin for cellulitis and IV Protonix, patient is status post a right- sided midline 05/06/2021, patient seen eval examined during rounds labs reviewed medications reviewed more alert and awake, patient is been evaluated by neurology, patient has significant stomal ulceration and bleeding which appeared as a GI bleeding stopped with local measures, general surgery is following, hemoglobin remained stable at 11.7, sodium is up to 124, renal functions normal, patient more awake and alert now 05/04/2021, patient seen eval examined during the rounds labs reviewed medications reviewed care plan discussed with the staff and patient at length, respiratory status due to is stable, sodium is improving sleep, patient is now on bicarb drip patient is awake and alert, patient noted to have a bloody fecal material in the ileum last me back, general surgery has been consulted, hemoglobin however remains stable, patient remains on Protonix, labs reviewed white cell count is stable 16,000 with hemoglobin and hematocrit is 13 and 36, platelet count is 111 stabilize, sodium is up to 08/27/2019 and 0.49 and same medication shins Lovenox has been on hold now getting IV Levaquin ALLERGIES penicillin, Patient seen evpauline examined in ICU currently awake but cannot give him detailed history, lives by himself at home however family members noted marisela thematous redness around ostomy site, patient was in very disheveled condition with the concern of bed bugs unable to obtain detailed history, however patient has a history of extensive multiple abdominal surgery with absence of colon and presence of ileostomy, labs are significant for leukocytosis with WBC count 22,000, sodium was only 112, potassium 7.4, repeat was 6.5, BUN is 38, coated was negative chest x-ray unremarkable urinalysis was negative as well computed tomography scan of the abdominal and pelvis no acute process seen, blood cultures are been obtained, nephrology consultation obtained due to significant hyponatremia, patient had a liter of normal saline and Decadron, repeat labs revealed sodium 115 potassium 5.4. Crit 34.81, lactic acid 2.8, Past medical history significant for dementia Alzheimer's disease, mood disorder depression, gout, hypertension hypertensive cardiovascular disease, insulin requiring diabetes mellitus, Objective - Vital Signs Vital signs: Vital Signs Temp 97.6 F 05/12/21 04:38 Pulse 70 05/12/21 08:30 Resp 16 05/12/21 04:38 BP 103/62 05/12/21 08:30 Pulse Ox 93 L 05/12/21 04:38 Intake & Output 05/11/21 05/12/21 05/12/21 18:59 06:59 18:59 Output Total 825 300 Balance -825 -300 Output: Urine 750 Uretheral (Payton) 750 Stool 75 300 Other: Voiding Method Indwelling Catheter Indwelling Catheter - Exam Alert and oriented x3, not in acute distress, malodorous, filthy HEENT: Normocephalic atraumatic, extra-ocular movements intact, pupils equal and reactive to light bilaterally, mucous membranes moist. Cardiovascular: Heart regular rate and rhythm Chest: Able to complete full sentences, no retractions, no tachypnea Abdomen: abdomen soft, non-tender, non-distended, no organomegaly, ostomy site to the left lower quadrant with surrounding erythema bloody stool in the bag no longer seen Musculoskeletal: Pulses present and equal in all extremities, no peripheral edema Motor: no focal deficits noted Neurological: CN II-XII grossly intact, no focal motor or sensory deficits noted Skin: Intact with no visualized rashes, no decubitus ulcers Psych: Normal affect and mood - Labs CBC & Chem 7: 05/10/21 08:17 05/11/21 05:33 Labs: Abnormal Lab Results - Last 24 Hours (Table) 05/11/21 05/11/21 05/11/21 Range/Units 11:30 14:39 17:31 POC Glucose (mg/dL) 159 H 135 H 137 H (75-99) mg/dL 05/11/21 05/12/21 Range/Units 20:10 07:08 POC Glucose (mg/dL) 124 H 133 H (75-99) mg/dL Assessment and Plan Assessment: Electrolyte imbalance with hypomagnesemia and hyponatremia, status post replacement Stomal bleed/ulceration around ileostomy bleeding stopped with local measures Sepsis likely due to cellulitis around ileostomy, patient to be continued on IV Levaquin as history of ALLERGY to penicillin, gently being rehydrated Cellulitis around the ileostomy anterior abdominal wall skin Intravascular volume depletion dehydration with prerenal Uncontrolled diabetes and hyperglycemia Plan: Continue plans for placement Overall plan includes continued to gently rehydrate and encourage patient to take by mouth Monitor labs closely Monitor observe off of IV Levaquin Sliding scale insulin I highly scale DVT and peptic ulcer disease prophylaxis Further plan of care as per clinical response of patient Time with Patient: Greater than 30
[2021-05-12] MEDS: Acetaminophen-Codeine 300-30mg TAB PO PRN ×2 (09:53→17:23)
--- NOTE | 2021-05-12 10:31 | CDI ---
Documentation Clarification Form Date: 05/12/2021 10:19:08 AM From: Melissa Murphy RN, CCDS Admit Date: 05/02/2021 12:25:00 PM Patient Name: Terrence Coronel Visit Number: [id number] ATTENTION: The Clinical Documentation Specialists (CDI) and [facility] Coding Staff appreciate your assistance in clarifying documentation. Please respond to the clarification below the line at the bottom and electronically sign. The CDI & [facility] Coding staff will review the response and follow-up if needed. Please note: Queries are made part of the Legal Health Record. If you have any questions, please contact the author of this message via ITS. Dr. Micah Moy UTI is documented only in your 05/08 Progress Note, without any further documentation. Additional clarification regarding this diagnosis is requested. History/Risk Factors: Sepsis secondary to cellulitis around ileostomy, hyponatremia, dehydration, uncontrolled DM with hyperglycemia, Cellulitis of right lower extremity, nephrolithiasis, sepsis from kidney stones x 2, ureteral stents Clinical Indicators: 05/08 Attending Progress note: "He is on NSAID prophylaxis, Levaquin for UTI. Await for recommendations from Neurology and Psychiatry as mental status confusion due to UTI does not make sense." 05/02 0959 Vital Signs: Temp 98, HR 72, RR 18, B/P 125/63, SPO2 98% RA 05/02-05/12 WBC:22.5/16.6/16.2/12.8/10.6/7.9/7.3/9.6 05/02 Urinalysis: +1 Ketones, small blood, 21 RBC, rare Calcium Oxalate Crystals, rare Amorphous Sediment, Rare Bacteria, Rare Mucus Urine Culture: no Urine culture done Treatment Antibiotics: 05/02-05/09 Levaquin 500 mg IVPB Q 24hrs. Please confirm or rule out the diagnosis of UTI: [ ] UTI POA [ ] UTI ruled out [ ] Other, please specify [ ] Unable to determine MTDD
--- NOTE | 2021-05-12 11:04 | CDI ---
Documentation Clarification Form Date: 05/12/2021 11:02:15 AM From: Melissa Murphy RN, CCDS Admit Date: 05/02/2021 12:25:00 PM Patient Name: Terrence Coronel Visit Number: [id number] ATTENTION: The Clinical Documentation Specialists (CDI) and [facility] Coding Staff appreciate your assistance in clarifying documentation. Please respond to the clarification below the line at the bottom and electronically sign. The CDI & [facility] Coding staff will review the response and follow-up if needed. Please note: Queries are made part of the Legal Health Record. If you have any questions, please contact the author of this message via ITS. Dr. Micah Moy Sepsis secondary to cellulitis around his ileostomy is documented H&P, Consults and Progress Notes. Additional clarification regarding the underlying cause of cellulitis is requested. History/risk factors: DM2 uncontrolled with hyperglycemia, DVT's, HTN, Nonischemic Cardiomyopathy, Ileostomy with revision 2012, diverticulitis, ulcerative colitis, GIB, Nephrolithiasis, AICD, ureteral stents, dehydration with hyponatremia Clinical Indicators: 05/02-05/11 Pulmonary consult: "Sepsis likely due to cellulitis around ileostomy, patient will be started on IV cefazolin gently being rehydrated Cellulitis around the tracheostomy anterior abdominal wall skin." 05/04 Surgical Consult: "70-year-old male with blood in his ostomy bag. I suspect irritation at the stoma site." 05/04 Nephrology Progress Note: "Abdomen soft nontender he has a colostomy with the area around the colostomy with cellulitis and bleeding. 05/06 H&P: "Sepsis secondary to cellulitis around his ileostomy." Treatment: 05/02-05/09 Levaquin 500mg IVPB Q 24hrs. 05/02 1L 0.9% NS IVF Bolus Please clarify the underlying cause of cellulitis, if known: [ ] Cellulitis of Ileostomy Stoma with Sepsis due to diabetes POA [ ] Cellulitis of Ileostomy Stoma with Sepsis POA [ ] Chronic Cellulitis of Ileostomy Stoma with Sepsis (please specify cause) POA [ ] Cellulitis of Drainage site (following Operation) with Postprocedural Sepsis POA [ ] Cellulitis of Ileostomy Stoma with Sepsis is due to original surgical procedure [ ] Other, please specify: [ ] Unable to determine (Template Last Revised: October 2020) MTDD
--- NOTE | 2021-05-12 11:35 | CDI ---
Documentation Clarification Form Date: 05/12/2021 11:32:03 AM From: Melissa Murphy RN, CCDS Admit Date: 05/02/2021 12:25:00 PM Patient Name: Terrence Coronel Visit Number: [id number] ATTENTION: The Clinical Documentation Specialists (CDI) and [facility] Coding Staff appreciate your assistance in clarifying documentation. Please respond to the clarification below the line at the bottom and electronically sign. The CDI & [facility] Coding staff will review the response and follow-up if needed. Please note: Queries are made part of the Legal Health Record. If you have any questions, please contact the author of this message via ITS. Dr. Micah Alvarado Multiple Pressure Ulcers are documented in the ID Consult on 05/10. Based on this information and the findings below, please confirm underlying cause and POA status if known and clinically appropriate for this patient? History/Risk Factors: Paroxysmal Atrial Fib, Heart failure, DM2 with Hyperglycemia, Bedbound since 2011, Ileostomy with Revision 2011, Nonishcemic Cardiomyopathy with AICD, DVT's, HTN, chronic Neck and Low Back Pain, Clinical Indicators: Location & Wound description: Unstageable sacral pressure ulcer. Left gluteal stage II pressure ulcer. Petechial rash to the left side of body more likely pressure related. Wound description: 05/10 ID Consult: "infectious disease was consulted last evening multiple wounds with the skin breakdown apparently the patient did have a pressure ulcer to the sacral area that has been present on admission currently being treated with a local protective dressing patient also have a petechial rash to mostly left side of his body. 1-patient with a deep tissue injury to the sacral area with evidence of any second cellulitis treated with a local treatment 2-left gluteal stage II pressure ulcer with no cellulitis 3-petechial rash to the left side of body more likely pressure related." Treatment: Consults: See ID Consult dated 05/10: "Plan is at this point, dry protective dressing keep the area off pressure. Left gluteal stage II pressure ulcer. Local care with dry Aquacel Silver dressing and keep the area off the pressure." 05/02-05/09 Levaquin 500 mg IVPB Q 24 hrs. Glucerna TID Turn Q 2 hrs. No Wound Care Consultation ordered Is there an additional diagnosis that is clinically appropriate for this patient? [ ] Unstageable sacral pressure ulcer. Left gluteal stage II pressure ulcer. Petechial rash to the left side of body more likely pressure related. POA [ ] Unstageable sacral pressure ulcer. Left gluteal stage II pressure ulcer. Petechial rash to the left side of body more likely pressure related. Hospital Acquired Please also specify underlying cause if known [ ] Unstageable sacral pressure ulcer. Left gluteal stage II pressure ulcer. petechial rash to the left side of body more likely pressure related due to underlying co-morbid conditions of bedbound status, uncontrolled DM2, and other known chronic conditions, [ ] Unstageable sacral pressure ulcer. Left gluteal stage II pressure ulcer. Petechial rash to the left side of body more likely pressure related due to (please specify underlying cause) [ ] Other condition, please specify [ ] Unable to determine Clinical Definitions: Stage 1 Pressure Ulcer: intact skin, non-blanching redness of local area Stage 2 Pressure Ulcer: Partial thickness, loss of dermis, pink wound bed Stage 3 Pressure Ulcer: Full thickness tissue loss Stage 4 Pressure Ulcer: Full thickness tissue loss with exposed bone, tendon, or muscle. Unstageable pressure ulcer: Full thickness tissue loss in which the base of the ulcer is covered by slough (yellow, lan, mojica, green or brown) and/or eschar (lan, brown or black) in the wound bed. (Template Last Revised: October 2020) MTDD
[2021-05-12 12:22] LABS: Glucose,Whole Blood 257 mg/dL (75-99)
[2021-05-12 17:04] LABS: Glucose,Whole Blood 194 mg/dL (75-99)
[2021-05-12 20:13] LABS: Glucose,Whole Blood 180 mg/dL (75-99)
[2021-05-12] MEDS: MELATONIN 3 MG TABLET PO SCH (21:01)
[2021-05-12] MEDS: MIRTAZAPINE 15 MG TAB PO SCH (21:01)
[2021-05-13 06:49] LABS: Anisocytosis Slight; Basophils % (A) 0 %; Eosinophils # (A) 0.2 k/uL (0-0.7); Eosinophils % (A) 2 %; HCT 31.8 % (39.0-53.0); HGB 10.8 gm/dL (13.0-17.5); Lymphocytes # (A) 0.9 k/uL (1.0-4.8); Lymphocytes % (A) 13 %; MCH 31.9 pg (25.0-35.0); MCHC 33.8 g/dL (31.0-37.0); MCV 94.4 fL (80.0-100.0); Macrocytosis Slight; Mean Platelet Volume 8.5; Monocytes # (A) 0.4 k/uL (0-1.0); Monocytes % (A) 6 %; Neutrophils # (A) 5.5 k/uL (1.3-7.7); Neutrophils % (A) 77 %; Platelet Count 115 k/uL (150-450); Poikilocytosis Slight; RBC 3.37 m/uL (4.30-5.90); RDW 17.4 % (11.5-15.5); WBC 7.2 k/uL (3.8-10.6)
[2021-05-13 07:03] LABS: ALT 21 U/L (4-49); AST 27 U/L (17-59); African American GFR (CKD) >90 (>60 ml/min/1.73 sqM); Albumin 2.1 g/dL (3.5-5.0); Albumin/Globulin Ratio 1.1; Alkaline Phosphatase 69 U/L (38-126); Anion Gap 1 mmol/L; Blood Urea Nitrogen 14 mg/dL (9-20); Calcium 7.8 mg/dL (8.4-10.2); Carbon Dioxide 24 mmol/L (22-30); Chloride 103 mmol/L (98-107); Glucose 133 mg/dL (74-99); Non-African American GFR(CKD) >90 (>60 ml/min/1.73 sqM); Sodium 128 mmol/L (137-145); Total Bilirubin 0.5 mg/dL (0.2-1.3); Total Protein 4.1 g/dL (6.3-8.2)
[2021-05-13] MEDS: DIGOXIN 125 MCG TAB PO SCH (07:16)
[2021-05-13] MEDS: ENOXAPARIN 30 MG/0.3 ML SYRINGE SQ SCH (07:17)
[2021-05-13] MEDS: FLUoxetine HCL 10 MG CAP PO SCH (07:17)
[2021-05-13] MEDS: PANTOPRAZOLE 40 MG TABLET PO SCH (07:17)
[2021-05-13] MEDS: METOPROLOL TARTRATE 25 MG TAB PO SCH ×2 (07:17→20:35)
[2021-05-13] MEDS: allopurinoL 300 MG TAB PO SCH (07:18)
[2021-05-13] MEDS: SODIUM CHLORIDE TAB 1 GM TAB PO SCH (07:18)
[2021-05-13] MEDS: FERROUS SULFATE 325 MG TAB PO SCH ×2 (07:18→17:22)
[2021-05-13 07:24] LABS: Glucose,Whole Blood 139 mg/dL (75-99)
[2021-05-13] MEDS: INSULIN ASPART (NovoLOG) 100 UNIT/ML VIAL SQ SCH ×4 (09:06→20:31)
[2021-05-13] MEDS ORDERED: FUROSEMIDE 10 MG/ML 4 ML VIAL IV STA (09:56)
[2021-05-13] MEDS: Acetaminophen-Codeine 300-30mg TAB PO PRN ×2 (10:21→21:27)
[2021-05-13 11:21] LABS: Glucose,Whole Blood 254 mg/dL (75-99)
--- NOTE | 2021-05-13 11:34 | PN ---
PROGRESS NOTE Patient is seen for followup for hyponatremia. His sodium level was up to 130 yesterday. It has been staying around 130. We do not have labs today. Today patient denies any significant complaints. Blood pressure was on examination 95/60, heart rate 68 per minute. He is afebrile. EXAMINATION OF THE HEART: S1 and S2. EXAMINATION OF LUNGS: Bilateral breath sounds are heard. Decreased breath sounds at the bases. Abdomen is soft, non-tender. Examination of lower extremities shows no significant edema. Patient has muscle wasting in his legs. ALARM FIELD TECHNICIAN exam shows patient does not move his lower extremities. Labs are not available from today. Sodium was 130 on 05/11/2021. ASSESSMENT: 1. Hyponatremia associated with poor solute intake. Sodium 130 for the last 2 days. Will repeat labs in a.m. Maintained on fluid restriction, status post one dose of Samsca on 05/09. 2. Hyperkalemia on admission, currently resolved. 3. History of ulcerative colitis, status post colostomy. 4. Metabolic acidosis secondary to gastrointestinal fluid losses, resolved. PLAN: Check labs in a.m. Continue free water restriction. Continue with the sodium chloride tabs. Blood pressure remains on the lower side. Serum cortisol was checked; it was at 43. MMODL / IJN: [id number] /
--- NOTE | 2021-05-13 11:35 | PN ---
PROGRESS NOTE This 70-year-old white male has sepsis secondary to cellulitis and wound infection around his ostomy as well as possible UTI and cellulitis of his legs, diabetic wound infection. He is much more alert and oriented, giving appropriate answers. Temperature 99.3, pulse 60s to 70s, respiratory rate 16 to 18, blood pressure 90s to low 100s over 60s to 70s. He is 94% on room air. Cardiovascular: S1, S2. Lungs are clear. GI soft The patient is resistant to go to a fpc. I suspect that is what he needs. He has significant hyponatremia, severe intravascular volume depletion and prerenal azotemia. ASSESSMENT: 1. Electrolyte imbalance. 2. Hypomagnesemia. 3. Hyponatremia. 4. Intravascular volume depletion. 5. Dehydration. 6. Stoma bleed, ulceration around ostomy. 7. Sepsis secondary to cellulitis from the ileostomy. Gentle rehydration. Insulin scale insulin, DVT prophylaxis. Prognosis guarded. MMIGORL / DAVIDN: [id number] /
--- NOTE | 2021-05-13 11:35 | PN ---
PROGRESS NOTE ADDENDUM: UTI ruled in. Chronic cellulitis of ileostomy stoma with sepsis and due to diabetes POA. Sacral ulcer unstageable. MMODL / IJN: [id number] /
--- NOTE | 2021-05-13 11:35 | PN ---
PROGRESS NOTE DATE OF SERVICE: 05/12/2021 REASON FOR FOLLOWUP: Sacral and gluteal pressure ulcers. INTERVAL HISTORY: The patient is afebrile. The patient is breathing comfortably, seems to be more awake, alert. No chest pain, shortness of breath or cough. No abdominal pain or worsening pain to the area. PHYSICAL EXAMINATION: Blood pressure 115/71 with a pulse of 69, temperature 99.3. He is 94% on room air. General description is an elderly male lying in bed in no distress. RESPIRATORY SYSTEM: Unlabored breathing. Clear to auscultation anteriorly. HEART: S1, S2. Regular rate and rhythm. ABDOMEN: Soft. No tenderness. Wounds are currently dressed. LABS: No new labs have been obtained today. DIAGNOSTIC IMPRESSION AND PLAN: Patient with a sacral and gluteal pressure ulcer. Local care to continue as ordered. There is no need for any systemic antibiotic therapy. Keep the area off pressure. MMODL / IJN: [id number] /
--- NOTE | 2021-05-13 12:14 | P.PN ---
Subjective Progress Note Date: 05/13/21 Principal diagnosis: Upper GI bleed Sepsis likely due to cellulitis around ileostomy, patient will be started on IV cefazolin gently being rehydrated Cellulitis around the tracheostomy anterior abdominal wall skin Severe and significant hyponatremia Intravascular volume depletion dehydration with prerenal acidemia Uncontrolled diabetes and hyperglycemia 05/13/2021, patient seen eval examined during the rounds labs reviewed medications reviewed care plan discussed, sputum is status remained stable, patient remains on room air, labs reviewed white cell count 7000 hemoglobin and hematocrit 10 and platelet 115,000, sodium remains low stable 128, renal service for hyponatremia 05/12/2021, patient seen eval examined during the rounds labs reviewed medications reviewed care plan discussed, respiratory status remained stable, get short of breath however on activity and exertion, has been on sodium replacement, sodium continued to improve mag is improved patient had ultrasound of the left arm no DVT identified, patient has been on DVT prophylaxis, 05/11/2021, patient seen eval examined during the rounds labs reviewed medications reviewed care plan discussed, trace status remained stable, breathing comfortably, labs from today reviewed sodium is up to 1:30, renal function within normal limit sugars improved, patient is back on anticoagulation for DVT prophylaxis, due to hypomagnesemia getting replacement of magnesium 05/09/2021, patient seen eval examined during the rounds labs reviewed medications reviewed Discussed, Respiratory Status Remains Stable Denies Any Chest Pain Mild Shortness of Breath Is Present, Recommend to Obtain PT OT Evaluation, Increase Activity As Tolerated, Patient Has Been Placed on Regular Diet, labs from today reviewed hemoglobin and hematocrit remain stable 06/08, sodium is up to 126, BUN/creatinine remains stable, 05/07/2021, patient seen eval examined during the rounds labs reviewed medications reviewed awake alert breathing comfortably, denies any chest pain, patient denies any cough or sputum production, his labs from today reviewed hemoglobin is 10.5 white cell count is 7900, sodium is up to 127, BUN/creatinine 14 and 0.43, blood sugar improved to 154, albumin remains low 2.0, patient remains on DVT prophylaxis with digoxin to control the heart rate, sliding scale insulin and Levaquin for cellulitis and IV Protonix, patient is status post a right-sided midline 05/06/2021, patient seen eval examined during rounds labs reviewed medications reviewed more alert and awake, patient is been evaluated by neurology, patient has significant stomal ulceration and bleeding which appeared as a GI bleeding stopped with local measures, general surgery is following, hemoglobin remained stable at 11.7, sodium is up to 124, renal functions normal, patient more awake and alert now 05/04/2021, patient seen eval examined during the rounds labs reviewed medications reviewed care plan discussed with the staff and patient at length, respiratory status due to is stable, sodium is improving sleep, patient is now on bicarb drip patient is awake and alert, patient noted to have a bloody fecal material in the ileum last me back, general surgery has been consulted, hemoglobin however remains stable, patient remains on Protonix, labs reviewed white cell count is stable 16,000 with hemoglobin and hematocrit is 13 and 36, platelet count is 111 stabilize, sodium is up to 08/27/2019 and 0.49 and same medication shins Lovenox has been on hold now getting IV Levaquin ALLERGIES penicillin, Patient seen eval examined in ICU currently awake but cannot give him detailed history, lives by himself at home however family members noted erythematous redness around ostomy site, patient was in very disheveled co ndition with the concern of bed bugs unable to obtain detailed history, however patient has a history of extensive multiple abdominal surgery with absence of colon and presence of ileostomy, labs are significant for leukocytosis with WBC count 22,000, sodium was only 112, potassium 7.4, repeat was 6.5, BUN is 38, coated was negative chest x-ray unremarkable urinalysis was negative as well computed tomography scan of the abdominal and pelvis no acute process seen, blood cultures are been obtained, nephrology consultation obtained due to significant hyponatremia, patient had a liter of normal saline and Decadron, repeat labs revealed sodium 115 potassium 5.4. Crit 34.81, lactic acid 2.8, Past medical history significant for dementia Alzheimer's disease, mood disorder depression, gout, hypertension hypertensive cardiovascular disease, insulin requiring diabetes mellitus, Objective - Vital Signs Vital signs: Vital Signs Temp 97.9 F 05/13/21 11:16 Pulse 70 05/13/21 11:16 Resp 16 05/13/21 11:16 BP 128/75 05/13/21 11:16 Pulse Ox 93 L 05/13/21 11:16 Intake & Output 05/12/21 05/13/21 05/13/21 18:59 06:59 18:59 Intake Total 800 250 Output Total 850 550 Balance -50 -300 Intake: Oral 800 250 Output: Urine 750 150 Uretheral (Payton) 400 150 Stool 100 400 Other: Voiding Method Indwelling Catheter Indwelling Catheter Indwelling Catheter - Exam Alert and oriented x3, not in acute distress, malodorous, filthy HEENT: Normocephalic atraumatic, extra-ocular movements intact, pupils equal and reactive to light bilaterally, mucous membranes moist. Cardiovascular: Heart regular rate and rhythm Chest: Able to complete full sentences, no retractions, no tachypnea Abdomen: abdomen soft, non-tender, non-distended, no organomegaly, ostomy site to the left lower quadrant with surrounding erythema bloody stool in the bag no longer seen Musculoskeletal: Pulses present and equal in all extremities, no peripheral edema Motor: no focal deficits noted Neurological: CN II-XII grossly intact, no focal motor or sensory deficits noted Skin: Intact with no visualized rashes, no decubitus ulcers Psych: Normal affect and mood - Labs CBC & Chem 7: 05/13/21 06:35 05/13/21 06:35 Labs: Abnormal Lab Results - Last 24 Hours (Table) 05/12/21 05/12/21 05/12/21 Range/Units 12:21 17:04 19:58 RBC (4.30-5.90) m/uL Hgb (13.0-17.5) gm/dL Hct (39.0-53.0) % RDW (11.5-15.5) % Plt Count (150-450) k/uL Lymphocytes # (1.0-4.8) k/uL Sodium (137-145) mmol/L Creatinine (0.66-1.25) mg/dL Glucose (74-99) mg/dL POC Glucose (mg/dL) 257 H 194 H 180 H (75-99) mg/dL Calcium (8.4-10.2) mg/dL Total Protein (6.3-8.2) g/dL Albumin (3.5-5.0) g/dL 05/13/21 05/13/21 05/13/21 Range/Units 06:35 06:35 07:18 RBC 3.37 L (4.30-5.90) m/uL Hgb 10.8 L (13.0-17.5) gm/dL Hct 31.8 L (39.0-53.0) % RDW 17.4 H (11.5-15.5) % Plt Count 115 L (150-450) k/uL Lymphocytes # 0.9 L (1.0-4.8) k/uL Sodium 128 L (137-145) mmol/L Creatinine 0.43 L (0.66-1.25) mg/dL Glucose 133 H (74-99) mg/dL POC Glucose (mg/dL) 139 H (75-99) mg/dL Calcium 7.8 L (8.4-10.2) mg/dL Total Protein 4.1 L (6.3-8.2) g/dL Albumin 2.1 L (3.5-5.0) g/dL 05/13/21 Range/Units 11:19 RBC (4.30-5.90) m/uL Hgb (13.0-17.5) gm/dL Hct (39.0-53.0) % RDW (11.5-15.5) % Plt Count (150-450) k/uL Lymphocytes # (1.0-4.8) k/uL Sodium (137-145) mmol/L Creatinine (0.66-1.25) mg/dL Glucose (74-99) mg/dL POC Glucose (mg/dL) 254 H (75-99) mg/dL Calcium (8.4-10.2) mg/dL Total Protein (6.3-8.2) g/dL Albumin (3.5-5.0) g/dL Assessment and Plan Assessment: Electrolyte imbalance with hypomagnesemia and hyponatremia, status post replacement Stomal bleed/ulceration around ileostomy bleeding stopped with local measures Sepsis likely due to cellulitis around ileostomy, patient to be continued on IV Levaquin as history of ALLERGY to penicillin, gently being rehydrated Cellulitis around the ileostomy anterior abdominal wall skin Intravascular volume depletion dehydration with prerenal Uncontrolled diabetes and hyperglycemia Plan: Continue plans for placement Overall plan includes continued to gently rehydrate and encourage patient to take by mouth Monitor labs closely Monitor observe off of IV Levaquin Sliding scale insulin I highly scale DVT and peptic ulcer disease prophylaxis Further plan of care as per clinical response of patient Time with Patient: Greater than 30
--- NOTE | 2021-05-13 12:23 | XR ---
EXAMINATION TYPE: XR chest 1V DATE OF EXAM: 05/13/2021 CLINICAL HISTORY: Difficulty breathing and CHF progress study. TECHNIQUE: Single AP portable upright view of the chest is obtained. COMPARISON: Chest x-ray from 4 days earlier FINDINGS: Surgical change in cervical spine is redemonstrated. There is persistent cardiomegaly with multiple IV pacemaker/defibrillator redemonstrated. Persistent low lung volumes with bibasilar opaci ties. Douglas osseous structures remain demineralized. IMPRESSION: Low lung volumes and cardiomegaly with bibasilar acute infiltrate and/or atelectasis and likely small to tiny bilateral pleural effusions. No significant change from most recent x-ray.
[2021-05-13 17:14] LABS: Glucose,Whole Blood 245 mg/dL (75-99)
--- NOTE | 2021-05-13 17:57 | PN ---
PROGRESS NOTE Patient is seen for followup for hyponatremia. Patient's sodium level had improved and was staying around 130; however, this morning it was back down to 128. Currently he is off of IV fluids and maintained on sodium chloride tabs. Urine osmolality on initial admission was around 401 to 529. Blood pressure has been on the lower side, with systolic around 104 to 120 mmHg. On examination today, blood pressure was 128/75, heart rate 70 per minute. Patient is afebrile. EXAMINATION OF THE HEART: S1 and S2. EXAMINATION OF LUNGS: Bilateral breath sounds are heard. Decreased breath sounds at the bases. Abdomen is soft, non-tender. Examination of lower extremities shows weakness of lower extremities. Trace edema noted. Patient does have edema 1+ bilaterally, upper extremities. Labs from today show sodium 128, potassium 4.0, chloride 103, BUN 14, serum creatinine 0.3. ASSESSMENT: 1. Hyponatremia, improved. It was initially associated with poor solute intake. Patient is maintained on sodium chloride tabs. His sodium this morning dropped to around 128. I did give a dose of IV Lasix, and repeat sodium came back up to 130. I will decrease the sodium chloride tabs, as this is causing some fluid retention, and patient is advised to maintain good oral intake, particularly protein. He should be maintained on fluid restriction of at least 1200 mL for 24 hours. 2. Hyperkalemia on admission, now resolved. 3. History of ulcerative colitis, status post colostomy. 4. Metabolic acidosis associated with gastrointestinal fluid losses, now resolved. PLAN: Decrease sodium chloride tabs. IV Lasix x1. Repeat sodium in a.m. Encourage increased oral intake, particularly protein. MMODL / IJN: [id number] /
[2021-05-13 20:00] LABS: Glucose,Whole Blood 233 mg/dL (75-99)
[2021-05-13] MEDS: MIRTAZAPINE 15 MG TAB PO SCH (20:21)
[2021-05-13] MEDS: MELATONIN 3 MG TABLET PO SCH (21:18)
--- NOTE | 2021-05-14 06:09 | PN ---
PROGRESS NOTE DATE OF SERVICE: 05/13/2021 REASON FOR FOLLOW UP: Pressure ulcer. INTERVAL HISTORY: The patient is currently afebrile. The patient is more awake and alert. He is breathing comfortably. No chest pain, shortness of breath or cough. No abdominal pain. No worsening pain to the sacral wound area. PHYSICAL EXAMINATION: Blood pressure is 99/66, pulse of 68, temperature 98.3. He is 95% on room air. General description is a middle-aged male lying in bed in no distress. Respiratory system: Unlabored breathing, clear to auscultation anteriorly. Heart S1, S2. Regular rate and rhythm. Abdomen: Soft, no tenderness. LABS: White count of 7.2, creatinine 0.43. DIAGNOSTIC IMPRESSION AND PLAN: Patient with sacral pressure along with pressure ulcer to sacral area. Local care to continue with dressing as ordered. Keep the area off the pressure. No evidence of any secondary cellulitis. No need for systemic antibiotic therapy. Continue supportive care. MMODL / IJN: [id number] /
--- NOTE | 2021-05-14 06:36 | PN ---
PROGRESS NOTE Admitted with sepsis due to cellulitis for an ileostomy on IV cefazolin, chronic abdominal skin infection, significant hyponatremia, intravascular volume depletion, prerenal azotemia. Says he is not feeling as good as yesterday. Sputum remains stable, he is on room air. White count 7000, hemoglobin is 10 and platelets 115,000. Sodium stable at 128. Extremities not moving much. He is lying in bed. O2 93, blood pressure is 128/75, pulse 70, respiratory 12-16, temp 97.9. Cardiovascular S1, S2. Lungs clear. GI soft. ASSESSMENT: 1. Electrolyte imbalance. 2. Hypomagnesemia. 3. Hyponatremia. Status post replacement. 4. Stroma bleed, ulceration around ileostomy. Bleeding stopped with local measures. 5. Sepsis secondary to the cellulitis around the ileostomy. IV Levaquin, gentle rehydration. Continue dehydration and rehydration for prerenal renal insufficiency. Diabetes will have to be controlled. Plan is for placement to care home check. MMODL / IJN: [id number] /
[2021-05-14 07:19] LABS: Glucose,Whole Blood 161 mg/dL (75-99)
[2021-05-14] MEDS: INSULIN ASPART (NovoLOG) 100 UNIT/ML VIAL SQ SCH ×4 (08:48→22:09)
[2021-05-14] MEDS: Acetaminophen-Codeine 300-30mg TAB PO PRN ×2 (08:48→21:42)
[2021-05-14] MEDS: FERROUS SULFATE 325 MG TAB PO SCH ×2 (08:48→18:08)
[2021-05-14] MEDS: PANTOPRAZOLE 40 MG TABLET PO SCH (08:48)
[2021-05-14] MEDS: ENOXAPARIN 30 MG/0.3 ML SYRINGE SQ SCH (08:48)
[2021-05-14] MEDS: METOPROLOL TARTRATE 25 MG TAB PO SCH ×2 (08:50→21:38)
[2021-05-14] MEDS: allopurinoL 300 MG TAB PO SCH (08:50)
[2021-05-14] MEDS: SODIUM CHLORIDE TAB 1 GM TAB PO SCH (08:50)
[2021-05-14] MEDS: DIGOXIN 125 MCG TAB PO SCH (08:51)
[2021-05-14] MEDS: FLUoxetine HCL 10 MG CAP PO SCH (08:51)
[2021-05-14 11:27] LABS: Glucose,Whole Blood 194 mg/dL (75-99)
--- NOTE | 2021-05-14 14:53 | PN ---
PROGRESS NOTE DATE OF SERVICE: 05/14/2021 REASON FOR FOLLOWUP: Pressure ulcer. INTERVAL HISTORY: Patient is afebrile. The patient is more awake and alert. He is breathing comfortably. The patient denies having any chest pain, shortness of breath, cough, no abdominal pain. Still complaining of some pain to the sacral area, but no worsening. PHYSICAL EXAMINATION: Blood pressure 104/62, pulse of 77. Temperature 97.9. He is 98% on room air. General description is an elderly male lying in bed in no distress. Respiratory system: Unlabored breathing and is clear to auscultation anteriorly. Heart S1, S2. Regular rate and rhythm. Abdomen soft, no tenderness. LABS: White count normal as of yesterday. No new labs have been done today. DIAGNOSTIC IMPRESSION AND PLAN: Patient with a pressure ulcer to the sacrum and gluteal area with no evidence of any secondary cellulitis. Continue local wound care as ordered. Keep the area off the pressure and no need for systemic antibiotic therapy. MMODL / IJN: [id number] /
[2021-05-14 17:02] LABS: Glucose,Whole Blood 206 mg/dL (75-99)
--- NOTE | 2021-05-14 18:33 | PN ---
PROGRESS NOTE Patient is seen for followup for hyponatremia. Patient's serum sodium had dropped to 128. He received a dose of Lasix and his sodium is up to 130 yesterday and today it is at 131. The sodium chloride tabs were decreased secondary to some fluid retention. EXAMINATION: Today patient is comfortable. He is arousable, sleeping, not in any acute distress. Blood pressure 104/62, heart rate 70 per minute. He is afebrile. Examination of the heart examination of lower extremities shows no significant edema. [employer] exam grossly intact. LAB: Show sodium 131 today. ASSESSMENT: 1. Hyponatremia associated with poor solute intake, improved with sodium chloride tabs, currently having some fluid retention. Sodium chloride has been decreased and patient is status post one dose of IV Lasix yesterday. His sodium is up to 131 today. I will likely discontinue the sodium chloride tabs tomorrow. 2. Hyperkalemia on initial admission now improved. 3. History of ulcerative colitis, status post colostomy. 4. Metabolic associated metabolic acidosis associated with GI fluid losses, now improved. PLAN: Repeat labs in a.m. I will likely discontinue the sodium chloride tabs tomorrow. MMODL / IJN: [id number] /
[2021-05-14 20:18] LABS: Glucose,Whole Blood 216 mg/dL (75-99)
[2021-05-14] MEDS: MELATONIN 3 MG TABLET PO SCH (21:38)
[2021-05-14] MEDS: MIRTAZAPINE 15 MG TAB PO SCH (21:38)
--- NOTE | 2021-05-15 00:04 | PN ---
PROGRESS NOTE 70-year-old white male with a pressure ulcer, metabolic encephalopathy. He is breathing more better, he is less short of breath, more awake. Blood pressure 104/62, pulse 77, temp 97.9, O2 98. Cardiovascular S1, S2. Lungs clear. GI soft. Hematology negative Homans. ASSESSMENT: 1. Pressure ulcer of the sacrum gluteal area. No evidence of secondary cellulitis. Alternating positioning. 2. Metabolic encephalopathy. 3. Prerenal renal insufficiency of significant nature. 4. Hyponatremia. 5. Hyperkalemia. 6. History of ulcerative colitis. 7. Metabolic acidosis. 8. Encephalopathy. 9. Prognosis guarded. Follow up in next 24 to 48 hours. Discharge to rehab center. Please see further orders. MMODL / IJN: [id number] /
[2021-05-15 04:23] LABS: Anisocytosis Slight; Basophils % (A) 0 %; Eosinophils # (A) 0.1 k/uL (0-0.7); Eosinophils % (A) 1 %; HCT 31.9 % (39.0-53.0); HGB 10.6 gm/dL (13.0-17.5); Lymphocytes # (A) 0.9 k/uL (1.0-4.8); Lymphocytes % (A) 16 %; MCH 32.1 pg (25.0-35.0); MCHC 33.3 g/dL (31.0-37.0); MCV 96.3 fL (80.0-100.0); Macrocytosis Slight; Mean Platelet Volume 7.6; Monocytes # (A) 0.3 k/uL (0-1.0); Monocytes % (A) 6 %; Neutrophils # (A) 4.2 k/uL (1.3-7.7); Neutrophils % (A) 75 %; Platelet Count 93 k/uL (150-450); Poikilocytosis Slight; RBC 3.31 m/uL (4.30-5.90); RDW 17.8 % (11.5-15.5); WBC 5.6 k/uL (3.8-10.6)
[2021-05-15 04:49] LABS: ALT 18 U/L (4-49); AST 22 U/L (17-59); African American GFR (CKD) >90 (>60 ml/min/1.73 sqM); Alkaline Phosphatase 69 U/L (38-126); Anion Gap 0 mmol/L; Blood Urea Nitrogen 17 mg/dL (9-20); Calcium 8.2 mg/dL (8.4-10.2); Carbon Dioxide 29 mmol/L (22-30); Chloride 102 mmol/L (98-107); Glucose 114 mg/dL (74-99); Non-African American GFR(CKD) >90 (>60 ml/min/1.73 sqM); Potassium 3.6 mmol/L (3.5-5.1); Sodium 131 mmol/L (137-145); Total Bilirubin 0.4 mg/dL (0.2-1.3)
[2021-05-15 07:05] LABS: Glucose,Whole Blood 114 mg/dL (75-99)
[2021-05-15] MEDS: INSULIN ASPART (NovoLOG) 100 UNIT/ML VIAL SQ SCH ×4 (07:36→21:31)
[2021-05-15] MEDS: allopurinoL 300 MG TAB PO SCH (07:43)
[2021-05-15] MEDS: FERROUS SULFATE 325 MG TAB PO SCH ×2 (07:43→17:50)
[2021-05-15] MEDS: FLUoxetine HCL 10 MG CAP PO SCH (07:43)
[2021-05-15] MEDS: PANTOPRAZOLE 40 MG TABLET PO SCH (07:43)
[2021-05-15] MEDS: SODIUM CHLORIDE TAB 1 GM TAB PO SCH (07:43)
[2021-05-15] MEDS: ENOXAPARIN 30 MG/0.3 ML SYRINGE SQ SCH (07:43)
[2021-05-15 11:21] VITALS: BMI 48.0
[2021-05-15] MEDS: DIGOXIN 125 MCG TAB PO SCH (11:50)
[2021-05-15] MEDS: METOPROLOL TARTRATE 25 MG TAB PO SCH ×2 (11:50→21:39)
[2021-05-15 11:56] LABS: Glucose,Whole Blood 136 mg/dL (75-99)
--- NOTE | 2021-05-15 15:25 | PN ---
PROGRESS NOTE Patient is seen for followup for hyponatremia, currently maintained on sodium chloride tabs, which was decreased to 1 daily. Serum sodium has been stable staying at about 131 as of today and yesterday. PHYSICAL EXAMINATION: Patient is comfortable. Blood pressure 98/61, heart rate 70 per minute. He is afebrile. Examination of the heart S1, S2. Examination of the lungs, decreased breath sounds at the bases. Abdomen is soft, nontender. Examination of lower extremities shows no significant edema. LAB: Show sodium 131, potassium 3.6, creatinine 0.5. ASSESSMENT: 1. Hyponatremia associated with poor solute intake, improved with sodium chloride tabs. Dose decreased secondary to some fluid retention, sodium staying at about 131. Blood pressure remains on the lower side. I will continue with the sodium chloride tabs for now. 2. Hyperkalemia on initial admission, now resolved. 3. History of ulcerative colitis. 4. Metabolic acidosis associated with GI fluid losses currently resolved. PLAN: Continue current dose of sodium chloride 1 gram daily. Monitor serum sodium periodically. MMODL / IJN: [id number] /
[2021-05-15 17:28] LABS: Glucose,Whole Blood 192 mg/dL (75-99)
[2021-05-15 19:57] LABS: Glucose,Whole Blood 184 mg/dL (75-99)
[2021-05-15] MEDS: MIDODRINE 5 MG TAB PO SCH (19:58)
[2021-05-15] MEDS: Acetaminophen-Codeine 300-30mg TAB PO PRN (19:58)
[2021-05-15] MEDS: MIRTAZAPINE 15 MG TAB PO SCH (21:31)
[2021-05-15] MEDS: MELATONIN 3 MG TABLET PO SCH (21:31)
--- NOTE | 2021-05-15 21:40 | PN ---
PROGRESS NOTE I am covering for Dr. Moy. DATE OF SERVICE: 05/15/2021 This 70-year-old gentleman who was admitted with severe hyponatremia is also on fluid restriction currently. The patient appears to be hypotensive with intravascular volume depletion. Patient also is mildly hypotensive. The patient is being closely monitored. Sodium has improved to 131, though patient has relative hypotension. Past medical history reviewed. REVIEW OF SYSTEMS: CARDIOVASCULAR: No angina, palpitations. RESPIRATORY SYSTEM: As mentioned earlier. GI: As mentioned earlier. : No dysuria. NERVOUS SYSTEM: Diffusely weak. CURRENT MEDICATIONS: Reviewed. They include Tylenol No.3, zyloprim, Lovenox, iron sulfate, Prozac, NovoLog, melatonin, Remeron. Doses are reviewed. PHYSICAL EXAMINATION: Patient alert and oriented x2. Pulse 69, blood pressure 110/69, respirations 16, temperature 98.2, pulse ox 94% on room air. HEENT: Conjunctivae normal. NECK: No jugular venous distention. CARDIOVASCULAR: S1, S2 muffled. RESPIRATION: Breath sounds diminished at the bases. A few scattered rhonchi. ABDOMEN: Soft. LEGS: No edema. No swelling. NERVOUS SYSTEM: Diffusely weak. Generalized edema present. LABS: WBC 5.6, hemoglobin 10.6, platelets are 93. Sodium 131. ASSESSMENT: 1. Sacral/gluteal pressure ulcer. 2. Hypovolemic hyponatremia. 3. Hyperkalemia. 4. History of ulcerative colitis. 5. Sacral decubitus ulcer. 6. Change in mental status, metabolic encephalopathy. 7. Acute metabolic acidosis. 8. History of atrial fibrillation. 9. History of congestive heart failure. 10.Diabetes mellitus. 11.History of deep vein thrombosis. 12.Hypertension. 13.History of renal disease. RECOMMENDATIONS AND DISCUSSION: I recommend to continue current medications, continue with symptomatic treatment. Chest x-ray done on 05/13, which was reviewed personally by me, showed low lung volumes. Blunting of the costophrenic angles was noted. I recommend empirically giving IV fluids at a low rate and observe. Otherwise, we will continue to monitor. Hold antihypertensive medications. Further recommendations to follow. PT/OT evaluation; possible ECF rehab. The patient. Prognosis guarded because of multiple complex medical issues. MMODL / IJN: [id number] /
--- NOTE | 2021-05-16 06:51 | PN ---
PROGRESS NOTE DATE OF SERVICE: 05/15/2021. FOLLOW UP: Sacral and left gluteal pressure ulcer. INTERVAL HISTORY: Patient is afebrile. The patient is currently breathing comfortably. Denies having any chest pain, shortness of breath or cough. Some discomfort to the sacral wound area, but no worsening. PHYSICAL EXAMINATION: Blood pressure 110/69, pulse of 69, temperature 98.2. He is 94% on room air. General description is an elderly male lying in bed in no distress. Respiratory system: Unlabored breathing, clear to auscultation. Heart S1, S2. Regular rate and rhythm. Abdomen soft, no tenderness. Examination of the sacral area did have pressure ulcer cellulitis and wound to the left gluteal area. DIAGNOSTIC IMPRESSION AND PLAN: Patient with sacral and left gluteal pressure ulcer with no evidence of any secondary cellulitis. Local care to continue with the Aquacel Silver dressing. Keep the area off the pressure and continue supportive care. MMODL / IJN: [id number] /
[2021-05-16 07:09] LABS: Glucose,Whole Blood 152 mg/dL (75-99)
[2021-05-16] MEDS: FLUoxetine HCL 10 MG CAP PO SCH (08:41)
[2021-05-16] MEDS: SODIUM CHLORIDE TAB 1 GM TAB PO SCH (08:41)
[2021-05-16] MEDS: DIGOXIN 125 MCG TAB PO SCH (08:41)
[2021-05-16] MEDS: FERROUS SULFATE 325 MG TAB PO SCH (08:42)
[2021-05-16] MEDS: INSULIN ASPART (NovoLOG) 100 UNIT/ML VIAL SQ SCH ×2 (08:42→12:51)
[2021-05-16] MEDS: ENOXAPARIN 30 MG/0.3 ML SYRINGE SQ SCH (08:42)
[2021-05-16] MEDS: allopurinoL 300 MG TAB PO SCH (08:43)
[2021-05-16] MEDS: PANTOPRAZOLE 40 MG TABLET PO SCH (08:43)
[2021-05-16] MEDS: MIDODRINE 5 MG TAB PO SCH (08:43)
[2021-05-16] MEDS ORDERED: METOPROLOL TARTRATE 12.5 MG TAB PO SCH (09:00)
--- NOTE | 2021-05-16 11:28 | P.PN ---
Subjective Progress Note Date: 05/16/21 Principal diagnosis: Upper GI bleed Sepsis likely due to cellulitis around ileostomy, patient will be started on IV cefazolin gently being rehydrated Cellulitis around the tracheostomy anterior abdominal wall skin Severe and significant hyponatremia Intravascular volume depletion dehydration with prerenal acidemia Uncontrolled diabetes and hyperglycemia 05/16/2021, patient seen and examined, respiratory status remains stable, and denies any chest pain, patient is being evaluated for placement in extended care facility, remains on room air his respiratory distress 05/13/2021, patient seen eval examined during the rounds labs reviewed medications reviewed care plan discussed, sputum is status remained stable, patient remains on room air, labs reviewed white cell count 7000 hemoglobin and hematocrit and platelet 115,000, sodium remains low stable 128, renal se rvice for hyponatremia 05/12/2021, patient seen eval examined during the rounds labs reviewed medic ations reviewed care plan discussed, respiratory status remained stable, get short of breath however on activity and exertion, has been on sodium replacement, sodium continued to improve mag is improved patient had ultrasound of the left arm no DVT identified, patient has been on DVT prophylaxis, 05/11/2021, patient seen eval examined during the rounds labs reviewed medications reviewed care plan discussed, trace status remained stable, breathing comfortably, labs from today reviewed sodium is up to 1:30, renal function within normal limit sugars improved, patient is back on anticoagulation for DVT prophylaxis, due to hypomagnesemia getting replacement of magnesium 05/09/2021, patient seen eval examined during the rounds labs reviewed medications reviewed Discussed, Respiratory Status Remains Stable Denies Any Chest Pain Mild Shortness of Breath Is Present, Recommend to Obtain PT OT Evaluation, Increase Activity As Tolerated, Patient Has Been Placed on Regular Diet, labs from today reviewed hemoglobin and hematocrit remain stable 06/08, sodium is up to 126, BUN/creatinine remains stable, 05/07/2021, patient seen eval examined during the rounds labs reviewed medications reviewed awake alert breathing comfortably, denies any chest pain, patient denies any cough or sputum production, his labs from today reviewed hemoglobin is 10.5 white cell count is 7900, sodium is up to 127, BUN/creatinine 14 and 0.43, blood sugar improved to 154, albumin remains low 2.0, patient aleida ins on DVT prophylaxis with digoxin to control the heart rate, sliding scale insulin and Levaquin for cellulitis and IV Protonix, patient is status post a right-sided midline 05/06/2021, patient seen eval examined during rounds labs reviewed medications reviewed more alert and awake, patient is been evaluated by neurology, patient has significant stomal ulceration and bleeding which appeared as a GI bleeding stopped with local measures, general surgery is following, hemoglobin remained stable at 11.7, sodium is up to 124, renal functions normal, patient more awake and alert now 05/04/2021, patient seen eval examined during the rounds labs reviewed medications reviewed care plan discussed with the staff and patient at length, respiratory status due to is stable, sodium is improving sleep, patient is now on bicarb drip patient is awake and alert, patient noted to have a bloody fecal material in the ileum last me back, general surgery has been consulted, hemoglobin however remains stable, patient remains on Protonix, labs reviewed white cell count is stable 16,000 with hemoglobin and hematocrit is 13 and 36, platelet count is 111 stabilize, sodium is up to 08/27/2019 and 0.49 and same medication shins Lovenox has been on hold now getting IV Levaquin ALLERGIES penicillin, Patient seen eval examined in ICU currently awake but cannot give him detailed history, lives by himself at home however family members noted erythematous redness around ostomy site, patient was in very disheveled condition with the concern of bed bugs unable to obtain detailed history, however patient has a history of extensive multiple abdominal surgery with absence of colon and presence of ileostomy, labs are significant for leukocytosis with WBC count 22,000, sodium was only 112, potassium 7.4, repeat was 6.5, BUN is 38, coated was negative chest x-ray unremarkable urinalysis was negative as well computed tomography scan of the abdominal and pelvis no acute process seen, blood cultures are been obtained, nephrology consultation obtained due to significant hyponatremia, patient had a liter of normal saline and Decadron, repeat labs revealed sodium 115 potassium 5.4. Crit 34.81, lactic acid 2.8, Past medical history significant for dementia Alzheimer's disease, mood disorder depression, gout, hypertension hypertensive cardiovascular disease, insulin requiring diabetes mellitus, Objective - Vital Signs Vital signs: Vital Signs Temp 97.7 F 05/16/21 05:00 Pulse 67 05/16/21 05:00 Resp 16 05/16/21 05:00 BP 126/78 05/16/21 05:00 Pulse Ox 95 05/16/21 05:00 Intake & Output 05/15/21 05/16/21 05/16/21 18:59 06:59 18:59 Intake Total 720 Output Total 800 650 Balance -80 -650 Weight 152 kg Intake: Oral 720 Output: Urine 400 450 Uretheral (Payton) 250 Stool 400 200 Other: Voiding Method Indwelling Catheter Indwelling Catheter Indwelling Catheter - Exam Alert and oriented x3, not in acute distress, malodorous, filthy HEENT: Normocephalic atraumatic, extra-ocular movements intact, pupils equal and reactive to light bilaterally, mucous membranes moist. Cardiovascular: Heart regular rate and rhythm Chest: Able to complete full sentences, no retractions, no tachypnea Abdomen: abdomen soft, non-tender, non-distended, no organomegaly, ostomy site to the left lower quadrant with surrounding erythema bloody stool in the bag no longer seen Musculoskeletal: Pulses present and equal in all extremities, no peripheral edema Motor: no focal deficits noted Neurological: CN II-XII grossly intact, no focal motor or sensory deficits noted Skin: Intact with no visualized rashes, no decubitus ulcers Psych: Normal affect and mood - Labs CBC & Chem 7: 05/15/21 04:03 05/16/21 10:11 Labs: Abnormal Lab Results - Last 24 Hours (Table) 05/15/21 05/15/21 05/15/21 Range/Units 11:35 17:23 19:56 Sodium (137-145) mmol/L POC Glucose (mg/dL) 136 H 192 H 184 H (75-99) mg/dL 05/16/21 05/16/21 Range/Units 06:59 10:11 Sodium 132 L (137-145) mmol/L POC Glucose (mg/dL) 152 H (75-99) mg/dL Assessment and Plan Assessment: Electrolyte imbalance with hypomagnesemia and hyponatremia, status post replacement Stomal bleed/ulceration around ileostomy bleeding stopped with local measures Sepsis likely due to cellulitis around ileostomy, patient to be continued on IV Levaquin as history of ALLERGY to penicillin, gently being rehydrated Cellulitis around the ileostomy anterior abdominal wall skin Intravascular volume depletion dehydration with prerenal Uncontrolled diabetes and hyperglycemia Plan: Continue plans for placement Overall plan includes continued to gently rehydrate and encourage patient to take by mouth Monitor labs closely Monitor observe off of IV Levaquin Sliding scale insulin I highly scale DVT and peptic ulcer disease prophylaxis Further plan of care as per clinical response of patient We'll follow as needed Time with Patient: Greater than 30
[2021-05-16 12:02] LABS: Glucose,Whole Blood 146 mg/dL (75-99)
[2021-05-16 12:16] VITALS: BP 127/69; PULSE 71; RESP 14; TEMP 99.6
--- NOTE | 2021-05-16 13:56 | P.DS ---
Providers Date of admission: 05/02/21 12:25 Expected date of discharge: 05/16/21 Attending physician: Micah Moy Consults: 05/02/21 12:32 Consult Physician Routine Consulting Provider: Jefferson Ochoa Consult Reason/Comments: icu patient Do you want consulting provider notified?: Already Contacted Consult Physician Routine Consulting Provider: Krystyna Cheema Consult Reason/Comments: hyponatremia, hyperkalemia Do you want consulting provider notified?: Yes 05/03/21 18:27 Consult Physician Routine Consulting Provider: David Ojeda Consult Reason/Comments: blood in ostomy Do you want consulting provider notified?: Yes 05/06/21 08:51 Consult Physician Routine Consulting Provider: Carlos Kaminski Consult Reason/Comments: poor self care, flat affect, depression Do you want consulting provider notified?: Yes 05/06/21 12:57 Consult Physician Routine Consulting Provider: Kaleb Dejesus Consult Reason/Comments: confusion Do you want consulting provider notified?: Yes 05/07/21 13:13 Consult Physician Routine Consulting Provider: Patric Jimenez Consult Reason/Comments: reconsult, refusing treatment Do you want consulting provider notified?: Yes 05/09/21 19:27 Consult Physician Routine Consulting Provider: Mainor Espino Consult Reason/Comments: multiple wounds, skin breakdown and possible fungal infection Do you want consulting provider notified?: Yes, Notify in am Primary care physician: Micah Moy [facility] Course: Final diagnosis Sacral/gluteal pressure ulcer Hypovolemic hyponatremia Hyperkalemia History of ulcerative colitis Sacral decubitus ulcer change in mental status, metabolic encephalopathy Acute metabolic acidosis history of atrial fibrillation History of congestive heart failure Diabetes mellitus neck line history of deep vein thrombosis Hypertension History of renal disease Full code Discharge disposition Patient is being discharged in a stable condition with guarded prognosis to [facility] for continued PT/OT therapy. Patient will follow-up with Dr. Arias in the outpatient setting upon discharge. Total time taken is greater than 35 minutes. Hospital course This is a 70-year-old male who was recently admitted with severe hyponatremia also having episodes of hypotension with intravascular volume depletion and generalized edema. Nephrology followed and evaluated the patient and sodium tablets have been discontinued and sodium is improved today at 132 and recommend continuing fluid restrictions of 1600 mL per day and repeat labs of CBC and CMP in 2-3 days. Recommend to continue with local wound care and offloading pressure to the sacral area with frequent position changes every 2 hours. Patient to continue with midodrine for blood pressure. Patient continues to be weak and will be [facility] to [facility] for continued PT/OT therapy. Currently no reports of chest pain, shortness of breath, or palpitations. Patient is afebrile. No reports of nausea or vomiting and patient is tolerating diet. Recommend Accu- Cheks before meals and at bedtime and continue sliding scale. Patient will be going to [facility] today. Guarded prognosis. On exam vital signs are stable. Cardio S1, S2 are muffled. Respiratory system shows diminished breath sounds at the bases with no wheezing or rhonchi noted. Abdomen is soft and obese, and nontender. Nervous system shows diffuse weakness. Please refer to medication reconciliation sheet for a list of medications. Patient Condition at Discharge: Fair Plan - Discharge Summary Discharge Rx Participant: No New Discharge Prescriptions: New Metoprolol Tartrate [Lopressor] 12.5 mg PO BID tab Midodrine [ProAmatine] 5 mg PO AC-BID tab Acetaminophen-Codeine 300-30mg [Tylenol w/codeine #3] 1 each PO Q8HR PRN #10 tab PRN Reason: Pain Melatonin 3 mg PO HS tablet Pantoprazole [Protonix] 40 mg PO AC-BRKFST tab FLUoxetine HCL [PROzac] 30 mg PO DAILY cap Enoxaparin [Lovenox] 30 mg SQ DAILY each INSULIN ASPART (NovoLOG) [NovoLOG (formulary)] 0 unit SQ ACHS ml Mirtazapine [Remeron] 45 mg PO HS tab Continue allopurinoL [Zyloprim] 300 mg PO DIRECTED Mirtazapine [Remeron] 45 mg PO DIRECTED Digoxin [Lanoxin] 62.5 mcg PO DIRECTED Ferrous Sulfate [Iron (65 MG Elemental)] 325 mg PO DIRECTED Discontinued diazePAM [Valium] 5 mg PO DIRECTED Insuln Asp Prt/Insulin Aspart [NovoLOG MIX 70-30 VIAL] 1 dose SQ DIRECTED Metoprolol Tartrate [Lopressor] 50 mg PO DIRECTED Acetaminophen with Codeine [Tylenol with Codeine #4 Tablet] 1 tab PO DIRECTED Discharge Medication List Mirtazapine [Remeron] 45 mg PO DIRECTED 08/06/16 [History] allopurinoL [Zyloprim] 300 mg PO DIRECTED 08/06/16 [History] Digoxin [Lanoxin] 62.5 mcg PO DIRECTED 04/23/19 [History] Ferrous Sulfate [Iron (65 MG Elemental)] 325 mg PO DIRECTED 05/02/21 [History] Acetaminophen-Codeine 300-30mg [Tylenol w/codeine #3] 1 each PO Q8HR PRN #10 tab 05/16/21 [Rx] Enoxaparin [Lovenox] 30 mg SQ DAILY each 05/16/21 [Rx] FLUoxetine HCL [PROzac] 30 mg PO DAILY cap 05/16/21 [Rx] INSULIN ASPART (NovoLOG) [NovoLOG (formulary)] 0 unit SQ ACHS ml 05/16/21 [Rx] Melatonin 3 mg PO HS tablet 05/16/21 [Rx] Metoprolol Tartrate [Lopressor] 12.5 mg PO BID tab 05/16/21 [Rx] Midodrine [ProAmatine] 5 mg PO AC-BID tab 05/16/21 [Rx] Mirtazapine [Remeron] 45 mg PO HS tab 05/16/21 [Rx] Pantoprazole [Protonix] 40 mg PO AC-BRKFST tab 05/16/21 [Rx] Follow up Appointment(s)/Referral(s): Micah Moy MD [Primary Care Provider] - 1-2 days Activity/Diet/Wound Care/Special Instructions: Patient is going to [facility] [employer] Activity as tolerated Recommend repeat labs of CBC and CMP in 2-3 days Recommend continuing Accu-Cheks before meals and at bedtime and treat with sliding scale NovoLog sliding scale 0-150 equals 0 units 151-200 equals 2 units 201-250 equals 4 units 251-300 equals 6 units 301-350 equals 8 units 351-400 equals 10 units Please notify provider if blood sugar is 400 or above Continue with consistent carbohydrate diet with fluid restrictions of 1600 mL's daily along with dysphagia level III check diet and aspiration precautions with head of the bed elevated 30-45 and supervision with meals Recommend a follow-up with primary care provider on discharge [facility] 05.16.21 @ [id number] Discharge Disposition: TRANSFER TO SNF/ECF
--- NOTE | 2021-05-16 14:45 | PN ---
PROGRESS NOTE Patient is seen for followup for hyponatremia. There are plans for discharge today. Sodium is staying at about 131 to 132 mEq/L. Patient was maintained on sodium chloride tabs, which were discontinued secondary to edema. Blood pressure is staying on the lower side. Midodrine was started, and this morning his pressure systolic is about 126 to 127 mmHg. On examination, patient is comfortable. Blood pressure 127/69, heart rate 71 per minute. He is afebrile. EXAMINATION OF THE HEART: S1 and S2. EXAMINATION OF LUNGS: Decreased breath sounds at the bases. Abdomen is soft, non-tender. Examination of lower extremities shows 1+ edema. There is significant edema, mostly noted in his upper extremities, and sacral edema noted. Labs show sodium 132. ASSESSMENT: 1. Hyponatremia associated with low urinary osmoles and maintained on sodium chloride tabs, now discontinued secondary to edema and fluid retention, status post one dose of Lasix. Sodium staying at about 131 to 132 currently. 2. Hyperkalemia on initial admission, now resolved. 3. History of ulcerative colitis. 4. Sacral/gluteal pressure ulcer. 5. Metabolic encephalopathy. PLAN: Discontinue sodium chloride tabs. Monitor serum sodium as outpatient. Continue to encourage increased oral protein intake. MMODL / IJN: [id number] /
--- NOTE | 2021-05-16 15:05 | PN ---
PROGRESS NOTE DATE OF SERVICE: 05/16/2021 REASON FOR FOLLOWUP: Pressure ulcer to the sacrum and left gluteal area. INTERVAL HISTORY: The patient is afebrile. The patient is currently breathing comfortably. The patient denies having any chest pain or any cough. Discomfort to the sacral wound area, but no worsening. PHYSICAL EXAMINATION: Blood pressure 127/69, pulse of 71, temperature 99.3. He is 93% on room air. General description is an elderly male lying in bed in no distress. RESPIRATORY SYSTEM: Unlabored breathing. Clear to auscultation anteriorly. HEART: S1, S2. Regular rate and rhythm. ABDOMEN: Soft. No tenderness. LABS: No new labs have been obtained today. DIAGNOSTIC IMPRESSION AND PLAN: Patient with a sacral and left gluteal pressure ulcer. No cellulitis. Local care to continue with Aquacel Silver dressing and keep the area off pressure and continue with supportive care. MMODL / IJN: [id number] /
== END 2021-05-16 16:12 | DRG 871 ==
LOC: EC 09:17 → 2SICU 12:25 → 3SCARD 05-05 16:01 → 5NMEDONC 05-10 22:27
PROVIDERS: ADMIT Family Medicine; ATTEND Family Medicine
PROC: 05HF33Z Insertion of Infusion Device into Left Cephalic Vein, Percutaneous Approach (ICD-10-PCS; principal; 2021-05-07 10:35)
DX: A41.9 Sepsis, unspecified organism (principal); G93.41 Metabolic encephalopathy; E11.52 Type 2 diabetes mellitus with diabetic peripheral angiopathy with gangrene; E46 Unspecified protein-calorie malnutrition; Z68.42 Body mass index [BMI] 45.0-49.9, adult; E87.1 Hypo-osmolality and hyponatremia; E87.2 Acidosis; L03.312 Cellulitis of back [any part except buttock and flank]; I13.0 Hypertensive heart and chronic kidney disease with heart failure and stage 1 through stage 4 chronic kidney disease, or unspecified chronic kidney disease; I42.8 Other cardiomyopathies; K51.911 Ulcerative colitis, unspecified with rectal bleeding; K94.11 Enterostomy hemorrhage; N39.0 Urinary tract infection, site not specified; R45.851 Suicidal ideations; K94.12 Enterostomy infection; L03.311 Cellulitis of abdominal wall; J44.9 Chronic obstructive pulmonary disease, unspecified; D69.2 Other nonthrombocytopenic purpura; Z20.822 Contact with and (suspected) exposure to COVID-19; L89.150 Pressure ulcer of sacral region, unstageable; E11.22 Type 2 diabetes mellitus with diabetic chronic kidney disease; E11.40 Type 2 diabetes mellitus with diabetic neuropathy, unspecified; E11.65 Type 2 diabetes mellitus with hyperglycemia; L89.322 Pressure ulcer of left buttock, stage 2; E66.9 Obesity, unspecified; F02.80 Dementia in other diseases classified elsewhere, unspecified severity, without behavioral disturbance, psychotic disturbance, mood disturbance, and anxiety; E11.628 Type 2 diabetes mellitus with other skin complications; G30.9 Alzheimer's disease, unspecified; F32.9 Major depressive disorder, single episode, unspecified; R62.7 Adult failure to thrive; I50.9 Heart failure, unspecified; N18.9 Chronic kidney disease, unspecified; Z79.4 Long term (current) use of insulin; F41.0 Panic disorder [episodic paroxysmal anxiety]; I48.0 Paroxysmal atrial fibrillation; E83.42 Hypomagnesemia; R53.81 Other malaise; E86.0 Dehydration; G89.29 Other chronic pain; E86.1 Hypovolemia; M54.5 Low back pain; M54.2 Cervicalgia; K44.9 Diaphragmatic hernia without obstruction or gangrene; E87.5 Hyperkalemia; Z74.01 Bed confinement status; Z82.49 Family history of ischemic heart disease and other diseases of the circulatory system; Z86.718 Personal history of other venous thrombosis and embolism; H26.9 Unspecified cataract; H93.13 Tinnitus, bilateral; Z98.1 Arthrodesis status; Z81.1 Family history of alcohol abuse and dependence; Z87.11 Personal history of peptic ulcer disease; Z90.89 Acquired absence of other organs; Z88.0 Allergy status to penicillin; Z88.8 Allergy status to other drugs, medicaments and biological substances; Z87.442 Personal history of urinary calculi; Z95.810 Presence of automatic (implantable) cardiac defibrillator
CPT/HCPCS: 36410; 36415; 70450; 71045; 72131; 74177; 76770; 76937; 80048; 80051; 80053; 80162; 81001; 82009; 82140; 82533; 82550; 82607; 82746; 82747; 83036; 83605; 83735; 83880; 83935; 84132; 84295; 84300; 84443; 85025; 85027; 85610; 85730; 87040; 87635; 93005; 95819; 96374; 96375; 99291